=== PATIENT | female | born 1935 | race Caucasian/White ===

== ENCOUNTER → 2017-10-20 13:46 | Outpatient (CLI) | payer MEDICARE, OTHER, SELFPAY ==
[2017-10-20 14:16] LABS: Erythrocyte Sedimentation Rate 18 mm/hr (0-30)
== END ==
PROVIDERS: Family Provider Family Medicine; PCP Family Medicine; Visit Provider Internal Medicine Rheumatology
DX: M31.6 Other giant cell arteritis (principal); Z85.3 Personal history of malignant neoplasm of breast; Z85.43 Personal history of malignant neoplasm of ovary; Z79.52 Long term (current) use of systemic steroids
CPT/HCPCS: 36415; 85652; 86140

== ENCOUNTER → 2017-11-21 10:58 | Outpatient (CLI) | payer MEDICARE, OTHER, SELFPAY ==
[2017-11-21 12:40] LABS: AST(SGOT) 17 U/L (15-37); Alanine Aminotransfer ALT/SGPT 19 U/L (13-56); Anion Gap 8 (5-15); BUN 16 mg/dL (7-18); BUN/Creat Ratio 17.3 RATIO (10-20); Calcium,Total 9.3 mg/dL (8.5-10.1); Chloride 107 mmol/L (98-107); Cholesterol 156 mg/dL (200); Creatinine, Serum 0.93 mg/dL (0.55-1.02); EST Glomerular Filtration Rate 62 mL/min (>60); Est Glom Filt Rate - Afr Amer 75 mL/min (>60); Glucose 127 mg/dL (74-106); High Density Lipoprotein 58 mg/dL; Sodium Level 144 mmol/L (136-145); Triglycerides 153 mg/dL; Very Low Density Lipoprotein 31 mg/dL (5-40)
== END ==
PROVIDERS: Visit Provider Family Medicine
DX: I10 Essential (primary) hypertension (principal); E78.5 Hyperlipidemia, unspecified; I26.99 Other pulmonary embolism without acute cor pulmonale
CPT/HCPCS: 36415; 80048; 80061; 84450; 84460

== ENCOUNTER → 2018-02-13 08:20 | Outpatient (CLI) | payer MEDICARE, OTHER, SELFPAY ==
[2018-02-13 09:33] LABS: Erythrocyte Sedimentation Rate 16 mm/hr (0-30)
== END ==
PROVIDERS: Family Provider Family Medicine; PCP Family Medicine; Visit Provider Internal Medicine Rheumatology
DX: M31.6 Other giant cell arteritis (principal); Z79.52 Long term (current) use of systemic steroids; Z85.3 Personal history of malignant neoplasm of breast; Z85.43 Personal history of malignant neoplasm of ovary
CPT/HCPCS: 36415; 85652; 86140

== ENCOUNTER 2018-02-20 19:07 | Emergency (ER) | payer MEDICARE, OTHER, SELFPAY ==
[2018-02-20] VITALS (7 sets, daily range): BP systolic 132–139; BP diastolic 71–105; PULSE 76–86; RESP 17–34; TEMP 36.6; O2SAT 92–95; BMI 31.2
--- NOTE | 2018-02-20 19:39 | RAD_ITS ---
STUDY: X-RAY CHEST REASON FOR EXAM: Female, 82 years old. Cough TECHNIQUE: Frontal and lateral views of the chest COMPARISON: 09/06/2015 FINDINGS: The lungs are clear. There are no pleural effusions. There is no pneumothorax. The heart is normal in size. The visualized osseous structures are within normal limits. RAD/Chest PA and Lateral IMPRESSION: No acute thoracic pathology. Electronically Signed: Cricket Garcia, at 20:27 EDT Tel , Service support ,
--- NOTE | 2018-02-20 19:39 | EKG12_ITS ---
Test Reason : CP Blood Pressure : / mmHG Vent. Rate : 080 BPM Atrial Rate : 080 BPM P-R Int : 140 ms QRS Dur : 078 ms QT Int : 372 ms P-R-T Axes : 034 -27 038 degrees QTc Int : 429 ms Normal sinus rhythm Normal ECG Confirmed by TRISTIN ANAYA, AC ([id number]), content editor SHELLIE NOLAN ([id number] on 02/22/2018 9:18:35 AM Referred By: Jocy Webb Confirmed By:AC CROW MD
[2018-02-20 19:55] LABS: Absolute Lymphocyte Count 1.96 X10^3/ul (0.83-4.51); Absolute Neutrophil Count 3.4 X10^3/uL (2.0-7.7); Basophil# 0.01 X10^3/uL; Basophil% 0.2 % (0-1); Eosinophil# 0.15 X10^3/uL; Eosinophils% 2.5 % (0-5); Hematocrit 39.5 % (37-47); Hemoglobin 13.1 g/dl (12.0-15.0); Lymphocyte # 1.96 X10^3/ul (4.0); Lymphocyte % 32.1 % (19-41); Mean Corp Hgb Conc 33.2 g/gl (32-36); Mean Corpuscular Hgb 30.3 pg (27.0-32.0); Mean Corpuscular Volume 91.2 fL (81-99); Mean Platelet Vol. 8.8 fl (6.2-12.0); Monocyte# 0.59 X10^3/uL; Monocyte% 9.7 % (0-10); Neutrophil # 3.38 X10^3/uL (2.7-7.7); Neutrophil % 55.3 % (47-70); Platelet Count 219 K/mm3 (150-450); RBC Distribution Width CV 13.6 % (11.6-14.6); RBC Distribution Width SD 44.9 fl (35.1-43.9); Red Blood Count 4.33 M/mm3 (4.2-5.4); White Blood Count 6.1 K/mm3 (4.4-11.0)
[2018-02-20 19:57] LABS: POSITIVE COUNT NO; POSITIVE DIFFERENTIAL NO; POSITIVE MORPHOLOGY NO
[2018-02-20 20:01] LABS: International Normalized Ratio 1.5; Prothrombin Time (Protime)PT. 17.7 SECONDS (11.7-14.9)
[2018-02-20 20:18] LABS: Anion Gap 9 (5-15); BUN 10 mg/dL (7-18); BUN/Creat Ratio 12.9 RATIO (10-20); Calcium,Total 8.3 mg/dL (8.5-10.1); Chloride 105 mmol/L (98-107); Creatinine, Serum 0.77 mg/dL (0.55-1.02); EST Glomerular Filtration Rate 76 mL/min (>60); Est Glom Filt Rate - Afr Amer 92 mL/min (>60); Estimated Creatinine Clearance 38.75 ml/min; Glucose 97 mg/dL (74-106); Potassium 4.1 mmol/L (3.5-5.1); Sodium Level 138 mmol/L (136-145)
--- NOTE | 2018-02-20 20:25 | ED.DCSUM_ITS ---
- ER Visit Summary Date of Service: 02/20/18 Chief Complaint: Cough History of Present Illness: The patient is a 82 F presenting with cough ?1 week. She states it is occasionally productive. She occasionally has shortness of breath with it but is not currently short of breath. She denies chest pain. Denies fever chills. She was seen by her primary care physician, Dr. Bardales. She continues to have symptoms. She denies other complaints. Physical Examination: Vitals are stable. Patient is afebrile. Alert no acute distress. HEENT exam is unremarkable. Pharynx is normal Neck is supple. Lungs are clear and equal bilaterally. Heart is regular rate and rhythm. Abdomen is soft nontender nondistended. Extremities are unremarkable. Skin is warm and dry. No focal neurologic deficit. Remainder of exam is unremarkable. Emergency Department Course and Treatment: EKG is sinus rate of 80 with no acute ischemic changes. CBC, chemistries unremarkable. Troponin is negative. Chest x-ray shows no acute process. Patient is resting comfortably in the emergency department. Her pulse ox with ambulation is 93-94% on room air. She feels well enough to go home. She will follow-up with her primary care physician. Advised return to ED for any worsening complaints. Disposition: Discharge Impression: Bronchitis This note was generated with [employer] dictation software. It may contain incorrect words, spelling, and punctuation that were not noted in review of the chart prior to signing ED Disposition - Plan for ED Patient: Chief Complaint: Cough Referrals: Alana Bardales MD [Primary Care Provider] -
[2018-02-20] MEDS: Ondansetron 4 MG/2 ML Vial IV (20:41)
--- NOTE | 2018-02-20 21:30 | ED.DEP ---
ED Disposition - Plan for ED Patient: Chief Complaint: Cough Instructions: ED Upper Resp Infec No Abx Tx Referrals: Alana Bardaels MD [Primary Care Provider] -
--- NOTE | 2018-02-21 13:16 | CM.ED ---
ED CALLBACK: Follow-up call placed to patient. No answer. No voicemail option.
== END 2018-02-20 21:36 | disposition home or self-care (01) ==
LOC: ED 19:49
PROVIDERS: Emergency Provider Emergency Medicine; Family Provider Family Medicine; PCP Family Medicine
DX: J40 Bronchitis, not specified as acute or chronic (principal); I25.10 Atherosclerotic heart disease of native coronary artery without angina pectoris; E78.00 Pure hypercholesterolemia, unspecified; F03.90 Unspecified dementia, unspecified severity, without behavioral disturbance, psychotic disturbance, mood disturbance, and anxiety; Z79.01 Long term (current) use of anticoagulants; Z79.82 Long term (current) use of aspirin; Z79.899 Other long term (current) drug therapy
CPT/HCPCS: 71046; 80048; 84484; 85025; 85610; 93005; 96374; 99284; A4216; J2405

== ENCOUNTER → 2018-05-14 12:13 | Outpatient (CLI) | payer MEDICARE, OTHER, SELFPAY ==
[2018-05-14 12:51] LABS: Erythrocyte Sedimentation Rate 16 mm/hr (0-30)
[2018-05-14 13:09] LABS: CRP 6.68 mg/L (0.0-3.0)
== END ==
PROVIDERS: Family Provider Family Medicine; PCP Family Medicine; Visit Provider Internal Medicine Rheumatology
DX: M31.6 Other giant cell arteritis (principal); Z79.52 Long term (current) use of systemic steroids; Z85.3 Personal history of malignant neoplasm of breast; Z85.43 Personal history of malignant neoplasm of ovary
CPT/HCPCS: 36415; 85652; 86140

== ENCOUNTER → 2018-06-11 15:58 | Outpatient (CLI) | payer MEDICARE, OTHER, SELFPAY ==
[2018-06-11 17:11] LABS: Absolute Lymphocyte Count 2.14 X10^3/ul (0.83-4.51); Absolute Neutrophil Count 5.2 X10^3/uL (2.0-7.7); Basophil# 0.02 X10^3/uL; Basophil% 0.2 % (0-1); Eosinophils% 2.4 % (0-5); Hematocrit 43.4 % (37-47); Lymphocyte # 2.14 X10^3/ul (4.0); Lymphocyte % 25.9 % (19-41); Mean Corp Hgb Conc 32.3 g/gl (32-36); Mean Corpuscular Hgb 29.9 pg (27.0-32.0); Mean Corpuscular Volume 92.7 fL (81-99); Mean Platelet Vol. 9.6 fl (6.2-12.0); Monocyte# 0.73 X10^3/uL; Monocyte% 8.8 % (0-10); Neutrophil # 5.15 X10^3/uL (2.7-7.7); Neutrophil % 62.6 % (47-70); Platelet Count 281 K/mm3 (150-450); RBC Distribution Width CV 14.2 % (11.6-14.6); RBC Distribution Width SD 47.9 fl (35.1-43.9); Red Blood Count 4.68 M/mm3 (4.2-5.4); White Blood Count 8.3 K/mm3 (4.4-11.0)
[2018-06-11 17:12] LABS: POSITIVE COUNT NO; POSITIVE DIFFERENTIAL NO; POSITIVE MORPHOLOGY NO
[2018-06-11 17:32] LABS: ALB/GLOB Ratio 1.1 RATIO (0.9-2.4); AST(SGOT) 14 U/L (15-37); Alanine Aminotransfer ALT/SGPT 18 U/L (13-56); Albumin, Serum 3.5 g/dL (3.2-5.0); Alkaline Phosphatase 112 U/L (45-117); Anion Gap 8 (5-15); BUN 13 mg/dL (7-18); BUN/Creat Ratio 16.6 RATIO (10-20); Calcium,Total 8.9 mg/dL (8.5-10.1); Chloride 110 mmol/L (98-107); Creatinine, Serum 0.78 mg/dL (0.55-1.02); EST Glomerular Filtration Rate 75 mL/min (>60); Est Glom Filt Rate - Afr Amer 91 mL/min (>60); Globulin 3.2 g/dL (2.2-4.2); Glucose 91 mg/dL (74-106); Magnesium 1.9 mg/dL (1.6-2.6); Phosphorus 3.8 mg/dL (2.5-4.9); Protein, Total 6.7 g/dL (6.4-8.2); Sodium Level 144 mmol/L (136-145)
== END ==
PROVIDERS: Family Provider Family Medicine; PCP Family Medicine; Referring Provider Internal Medicine Medical Oncology; Visit Provider Internal Medicine Medical Oncology
DX: M85.80 Other specified disorders of bone density and structure, unspecified site (principal); D05.12 Intraductal carcinoma in situ of left breast
CPT/HCPCS: 36415; 80053; 83735; 84100; 85025

== ENCOUNTER → 2018-06-25 16:38 | Outpatient (CLI) | payer MEDICARE, OTHER, SELFPAY ==
--- NOTE | 2018-06-25 16:40 | CT_ITS ---
STUDY: CT CHEST WITH CONTRAST REASON FOR EXAM: Female, 82 years old. Cough, breast cancer history RADIATION DOSAGE (If Supplied By Facility): CTDIvol = ( 15.20 ) mGy, DLP = ( 536.78 ) mGycm TECHNIQUE: Transaxial 2.5 mm imaging was performed following intravenous administration of 100 ml of Isovue 300 contrast material. Multiplanar coronal and sagittal images were reformatted. Individualized dose optimization techniques were used for this CT. COMPARISON: CT chest 10/01/2015. 05/28/2015 with coronal images only. Chest x-ray 02/20/2018. FINDINGS: Minimal scarring in the apices, areas off hyperinflation, minimal thickening along the right anterior lower chest wall possible radiation changes, nonspecific compression of peripheral basilar parenchyma. There is no demonstrated pleural abnormality. Normal heart and pericardium. Normal mediastinum. Normal hilar regions. Normal enhanced pulmonary arteries. There is atherosclerotic calcification of the aortic arch with tortuosity and elongation of the aortic arch and descending thoracic aorta. There are multi-level degenerative changes of the spine, bilateral shoulder joints, demineralization of osseous structures. There are bilateral external breast prostheses. No distracted osseous lesions. Stable small cystic lesion involving the pancreas head measuring 1.2 x 1 cm, previously 1.2 x 0.9 cm. This is better delineated on the current contrast enhanced study. There is a hiatal hernia. Normal bilateral adrenal glands is imaged. CT/Chest WITH Contrast IMPRESSION: Chronic changes with scarring, possible postradiation changes, areas of hyperinflation. No pulmonary edema, congestive heart failure or confluent pneumonia. No evidence of metastatic disease to soft tissue, bones, mediastinum, upper abdomen. Extent Stable cystic lesion within the pancreas since 2014 felt to be a benign entity. Other nonacute findings as outlined above. Electronically Signed: Deana Ma MD at 5:32 EDT , Service support ,
== END ==
PROVIDERS: Family Provider Family Medicine; PCP Family Medicine; Referring Provider Internal Medicine Medical Oncology; Visit Provider Internal Medicine Medical Oncology
DX: R05 Cough (principal); Z85.3 Personal history of malignant neoplasm of breast
CPT/HCPCS: 71260; Q9967

== ENCOUNTER 2018-08-10 13:32 | Inpatient (IN) | payer MEDICARE, OTHER, SELFPAY ==
[2018-08-10] VITALS (10 sets, daily range): BP systolic 131–168; BP diastolic 63–86; PULSE 62–72; RESP 16–18; TEMP 36.5–37.1; O2SAT 26–98; BMI 29.7; BMI 29.1; BMI 29.2
--- NOTE | 2018-08-10 14:02 | CT_ITS ---
STUDY: CT BRAIN WITHOUT CONTRAST REASON FOR EXAM: Female, 82 years old. History of breast cancer. Vertigo RADIATION DOSAGE (If Supplied By Facility): CTDIvol = ( 44.99 ) mGy, DLP = ( 711.75 ) mGycm TECHNIQUE: Transaxial CT imaging of the brain was performed without administration of intravenous contrast material. Individualized dose optimization techniques were used for this CT. COMPARISON: May 27, 2015 CT brain FINDINGS: Encephalomalacia and gliosis in the left frontal and parietal lobes noted likely related with chronic ischemic injury similar to previous CT from May 27, 2015. Moderate chronic small vessel disease. No shift of midline structures, mass effect or compression of ventricles noted. No acute intra-articular extra-axial hemorrhage. Vascular calcifications of the internal carotid arteries. Opacification of the right maxillary sinus noted. No discrete mass in the posterior fossa. IMPRESSION: Stable CT examination of the brain. No evidence for acute intracranial hemorrhage, mass effect or acute large territory infarcts. Electronically Signed: Abilio Adkins, at 15:08 EST Tel , Service support , CT/Brain/Head without Contrast
--- NOTE | 2018-08-10 14:02 | EKG12_ITS ---
Test Reason : DIZZINESS Blood Pressure : / mmHG Vent. Rate : 066 BPM Atrial Rate : 066 BPM P-R Int : 142 ms QRS Dur : 080 ms QT Int : 414 ms P-R-T Axes : 045 -13 051 degrees QTc Int : 434 ms Normal sinus rhythm Normal ECG Confirmed by TRISTIN ANAYA, AC ([id number]), development editor RUDDY REYNA ([id number]) on 08/14/2018 3:22:46 PM Referred By: Curtis Camacho Confirmed By:AC CROW MD
--- NOTE | 2018-08-10 14:02 | RAD_ITS ---
STUDY: X-RAY CHEST REASON FOR EXAM: Female, 82 years old. Dizziness TECHNIQUE: Single AP portable view of the chest. COMPARISON: February 20, 2018 FINDINGS: There are interstitial fibrotic changes of the lungs. There is no demonstrated pleural abnormality. Normal size heart. Normal mediastinum and kerry. Normal visualized pulmonary arteries. Normal visualized aortic arch and descending thoracic aorta. There are diffuse degenerative changes of the visualized thoracic spine. Degenerative change of the left shoulder. Postoperative changes in the soft tissues of the upper chest. There is no demonstrated abnormality of the visualized soft tissue structures of the upper abdomen. RAD/Chest 1 View IMPRESSION: Degenerative changes, as described above. No demonstrated acute cardiopulmonary process. Electronically Signed: Juan Shipley MD at 15:36 EST , Service support ,
[2018-08-10 14:53] LABS: Absolute Neutrophil Count 4.1 X10^3/uL (2.0-7.7); Basophil# 0.03 X10^3/uL; Basophil% 0.5 % (0-1); Eosinophil# 0.11 X10^3/uL; Eosinophils% 1.8 % (0-5); Hematocrit 40.6 % (37-47); Hemoglobin 13.4 g/dl (12.0-15.0); Lymphocyte % 22.5 % (19-41); Mean Corpuscular Volume 90.8 fL (81-99); Monocyte# 0.53 X10^3/uL; Monocyte% 8.5 % (0-10); Neutrophil # 4.13 X10^3/uL (2.7-7.7); Neutrophil % 66.5 % (47-70); Platelet Count 192 K/mm3 (150-450); RBC Distribution Width CV 14.1 % (11.6-14.6); RBC Distribution Width SD 46.9 fl (35.1-43.9); Red Blood Count 4.47 M/mm3 (4.2-5.4); White Blood Count 6.2 K/mm3 (4.4-11.0)
[2018-08-10 14:57] LABS: International Normalized Ratio 2.4; POSITIVE COUNT NO; POSITIVE DIFFERENTIAL NO; POSITIVE MORPHOLOGY NO; Prothrombin Time (Protime)PT. 26.6 SECONDS (11.7-14.9)
[2018-08-10 14:58] LABS: Partial Thromboplast Time 39.2 Seconds (24.1-36.2)
[2018-08-10 15:12] LABS: Anion Gap 8 (5-15); BUN 15 mg/dL (7-18); BUN/Creat Ratio 18.2 RATIO (10-20); Calcium,Total 8.8 mg/dL (8.5-10.1); Chloride 109 mmol/L (98-107); Creatinine, Serum 0.82 mg/dL (0.55-1.02); EST Glomerular Filtration Rate 71 mL/min (>60); Erythrocyte Sedimentation Rate 10 mm/hr (0-30); Est Glom Filt Rate - Afr Amer 86 mL/min (>60); Estimated Creatinine Clearance 47.25 ml/min; Glucose 109 mg/dL (74-106); Potassium 3.9 mmol/L (3.5-5.1); Sodium Level 143 mmol/L (136-145)
--- NOTE | 2018-08-10 15:53 | ED.VISSUMM ---
- ER Visit Summary Date of Service: 08/10/18 Chief Complaint: Dizziness History of Present Illness: The patient is a 82 F with dizziness that started several days ago. It feels like the room is spinning. It lasts for seconds to minutes at a time. It has been getting worse, and the patient almost fell. Symptoms are better when she sits down or uses her walker. No visual changes. No facial droop. No weakness or numbness. 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 Physical Examination: Afebrile and vital signs unremarkable. NIH stroke scale is 0. Heart regular. Lungs clear. Abdomen soft. Skin appears normal. Test Results: EKG showed sinus rhythm rate of 66. Labs fairly unremarkable. Coumadin therapeutic at 2.4. Troponin normal. Chest x-ray shows degenerative changes. CT brain showed nothing acute. Emergency Department Course and Treatment: Patient has intermittent vertigo. She has a history of temporal arteritis, syncope, HI, PE, et al. I am concerned this may be related to her temporal arteritis, but she does not have any other symptoms that she had with her prior bout. I also considered stroke given her risk factors. I also considered peripheral causes, but felt that these were less likely because she does not have other symptoms that are consistent with that. I discussed management options with the patient and her family. They are concerned about her safety with her difficulty walking. They do not feel comfortable with her going home and following up as an outpatient. They would like to rule out stroke. I spoke with the hospitalist for further care. Treatment Plan: As above Disposition: Admission Impression: 1. Vertigo This note was generated with [employer] dictation software. It may contain incorrect words, spelling, and punctuation that were not noted in review of the chart prior to signing ED Disposition - Plan for ED Patient: Chief Complaint: Dizziness Referrals: Mayank Haq DO [Primary Care Provider] -
--- NOTE | 2018-08-10 15:55 | NURSING ---
PCU DIZZINESS OBS [facility]
--- NOTE | 2018-08-10 15:58 | ED.DCSUM_ITS ---
- ER Visit Summary Date of Service: 08/10/18 Chief Complaint: Dizziness History of Present Illness: The patient is a 82 F with dizziness that started several days ago. It feels like the room is spinning. It lasts for seconds to minutes at a time. It has been getting worse, and the patient almost fell. S ymptoms are better when she sits down or uses her walker. No visual changes. No facial droop. No weakness or numbness. 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 Physical Examination: Afebrile and vital signs unremarkable. NIH stroke scale is 0. Heart regular. Lungs clear. Abdomen soft. Skin appears normal. Test Results: EKG showed sinus rhythm rate of 66. Labs fairly unremarkable. Coumadin therapeutic at 2.4. Troponin normal. Chest x-ray shows degenerative changes. CT brain showed nothing acute. Emergency Department Course and Treatment: Patient has intermittent vertigo. She has a history of temporal arteritis, syncope, [place], PE, et al. I am concerned this may be related to her temporal arteritis, but she does not have any other symptoms that she had with her prior bout. I also considered stroke given her risk factors. I also considered peripheral causes, but felt that these were less likely because she does not have other symptoms that are consistent with that. I discussed management options with the patient and her family. They are concerned about her safety with her difficulty walking. They do not feel comfortable with her going home and following up as an outpatient. They would like to rule out stroke. I spoke with the hospitalist for further care. Treatment Plan: As above Disposition: Admission Impression: 1. Vertigo This note was generated with [employer] dictation software. It may contain incorrect words, spelling, and punctuation that were not noted in review of the chart prior to signing ED Disposition - Plan for ED Patient: Chief Complaint: Dizziness Referrals: Mayank Haq DO [Primary Care Provider] -
--- NOTE | 2018-08-10 18:02 | HP.PCM_ITS ---
<James Alexander - Last Filed: 08/10/18 17:57> Problem List (1) Dizziness Status: Acute (2) Ovarian ca Status: Chronic (3) GERD (gastroesophageal reflux disease) Status: Chronic (4) Temporal arteritis Status: Chronic (5) History of right breast cancer Status: Chronic History of Present Illness Date of Admission: 08/10/18 Chief Complaint: dizziness The patient is a 82 year old F with pmhx of Breast and Ovarian CA in remission x [address] López, hx PE and DVT, hx SSVT, hx temporal arteritis, GERD, Polio right arm and leg, who presents to the ER with c/o dizziness. This has been going on for a couple days and became worse today. She notes that it only o ccurs when she stands or walks and it is relieved by sitting down. She had an episode while she was on her feet here too. Currently no dizziness. She has no dizziness when turning her head back and forth. She was unsteady on her feet. No nausea. No focal weakness. No [place]. No visual changes. No numbness or tingling. No slurred speech or facial droop. [] Past Medical History Past Medical History (Chronic Problems): Chronic Problems (Last Reviewed 07/08/18 @ 14:41 by Odette Bassett) Ovarian ca (Chronic) GERD (gastroesophageal reflux disease) (Chronic) Temporal arteritis (Chronic) Osteopenia (Chronic) History of right breast cancer (Chronic) Medical History: Medical History (Last Reviewed 07/08/18 @ 14:41 by Odette Bassett) History of hysterectomy Z90.710 Pulmonary embolism I26.99 Temporal arteritis M31.6 Allergies No Known Allergies Allergy (Verified 08/10/18 13:34) Home Medications: Ambulatory Orders Medication Instructions Recorded Calcium Carbonate/Vitamin D3 1 each PO BID 02/09/16 [Oyster Shell Calcium-Vit D Tab] Rivastigmine Tartrate [Exelon] 3 mg PO BID 05/20/16 Prednisone 2.5 mg PO DAILY 04/24/17 Warfarin [Coumadin ([facility])] 2 mg PO SUMOWEFRSA 04/24/17 Anastrozole [Arimidex] 1 mg PO DAILY 08/10/18 Aspirin [Aspirin, Baby] 81 mg PO DAILY@0800 08/10/18 Atorvastatin Calcium [Lipitor] 20 mg PO QHS 08/10/18 Carvedilol [Coreg (Beta Mayank)] 3.125 mg PO BID 08/10/18 Mirtazapine [Remeron] 15 mg PO QHS 08/10/18 Warfarin [Coumadin ([facility])] 4 mg PO TUTH 08/10/18 Surgical History: Surgical History (Last Reviewed 07/08/18 @ 14:41 by Odette Bassett) H/O cataract extraction Z98.49 H/O mastectomy Z90.10 BILATERAL History of knee replacement Z96.659 Surgical History: - - R TKR, L ankle fracture w/ hardware, Hysterectomy, BL Total Mastectomy. Psychiatric History: No pertinent psych hx [employer]ER History: ovarian cancer Lives: With Family Smoking Status: Never smoker Alcohol: None Drugs: None - *Family History Maternal History Items: Heart Disease, Stroke Sibling History Items: - - Cancer and DM in sisters. Paternal History Items: Heart Disease Review of Systems Constitutional: Denies: Chills, Fever, Weight Change HEENT: Denies: Head Aches, Sinus Congestion, Sinus Drainage Cardiovascular: Denies: Chest Pain, Palpitations Respiratory: Denies: Cough, Shortness of breath at rest, Sputum production Gastrointestinal: Denies: Abdominal Pain, Nausea, Vomiting Genitourinary: Denies: Dysuria Musculoskeletal: Denies: Joint Pain, Joint Tenderness Skin: Denies: Rash, Wounds Neurological: Reports: - - dizziness. Denies: Focal weakness, Numbness, Tingling Psychiatric: Denies: Anxiety, Depression, Homicidal Ideations, Suicidal Ideations Hematologic/ Lymphatic: Denies: Easy Bruising, Easy Bleeding VTE Information - Inpt Only VTE Present on Admission: No VTE Mechan Device Prophylaxis: None VTE Pharm Prophylaxis ordered?: Yes Patient Problems: Active and Suspected Problems (Last Reviewed 07/08/18 @ 14:41 by Odette Bassett) Dizziness (Acute) - Physical Exam General: Alert, Oriented x3, Cooperative HEENT: Atraumatic, PERRLA, EOMI, Normocephalic Neck: Supple, No JVD, Negative Carotid Bruits Lungs: Clear to auscultation, Normal air movement Cardiovascular: Regular rate, No murmurs Abdomen: Bowel Sounds Present, Soft, Non Tender Extremities: No edema, Capillary Refill Less than 3 Seconds Skin: No rashes, No breakdown Musculoskeletal: No Tenderness to Palpation of Joints or Extremities Neurological: Cranial nerves II-XII grossly intact Psych/Mental Status: Normal Affect, Appropriate, Alert and oriented to time, place, person, mood and affect Vital Signs Temp Pulse Resp BP Pulse Ox 98.7 F 68 17 138/86 H 95 08/10/18 16:43 08/10/18 17:21 08/10/18 16:43 08/10/18 16:43 08/10/18 16:43 Oxygen Flow Rate (L/min) 93 Oxygen Delivery Method Room Air Weight: 169 lb 15.622 oz Body Mass Index (BMI) 29.1 Laboratory Tests Past 24 Hrs 08/10/18 08/10/18 08/10/18 14:40 14:40 14:40 WBC 6.2 RBC 4.47 Hgb 13.4 Hct 40.6 MCV 90.8 MCH 30.0 MCHC 33.0 RDW 14.1 RDW Differential 46.9 H Plt Count 192 MPV 9.0 Immature Gran % (Auto) 0.200 Neut % (Auto) 66.5 Lymph % (Auto) 22.5 [place] % (Auto) 8.5 Eos % (Auto) 1.8 Baso % (Auto) 0.5 Absolute Neuts (auto) 4.1 Absolute Lymphs (auto) 1.40 Total Counted Not Reportable ESR 10 PT 26.6 H INR 2.4 APTT 39.2 H Sodium 143 Potassium 3.9 Chloride 109 H Carbon Dioxide 26.0 Anion Gap 8 BUN 15 Creatinine 0.82 Estim Creat Clear Calc 47.25 Est GFR (MDRD) Af Amer 86 Est GFR (MDRD) Non-Af 71 BUN/Creatinine Ratio 18.2 Glucose 109 H Calcium 8.8 Troponin I < 0.015 Assessment/Plan All Active Problems (Last Reviewed 07/08/18 @ 14:41 by Odette Bassett) NSTEMI (non-ST elevated myocardial infarction) (Acute) Dyspnea (Acute) Pneumonia (Acute) Syncope (Acute) Invasive ductal carcinoma of right breast, stage 2 (Resolved) Chronic cough (Acute) Dizziness (Acute) Breast cancer (Resolved) Ductal carcinoma in situ (DCIS) of left breast (Resolved) 1. Dizziness - . CT brain neg. Check orthos. PTOT evals. Maintain on tele. Trop neg. EKG NSR 2. hx DVT/PE - inr therapeutic 3. Hx BrCa, ovarian Ca, in remission s/p mastectomy/hysterectomy. Continue arimidex. 4. Hx Polio - PTOT. Ambulates with walker. R side effected (U/L Ext) 5. Temporal arteritis - since 2013. f.u as outpatient - continue prednisone. DVT ppx: lovenox DC planning: ptot evals This patient was seen by James Alexander PA-C under the supervision of Dr. Camacho <Curtis Camacho F - Last Filed: 08/11/18 14:18> History of Present Illness The patient is a 82 year old F [] Past Medical History Medical History: Medical History (Last Reviewed 07/08/18 @ 14:41 by Odette Bassett) History of hysterectomy Z90.710 Pulmonary embolism I26.99 Temporal arteritis M31.6 Allergies No Known Allergies Allergy (Verified 08/10/18 13:34) Surgical History: Surgical History (Last Reviewed 07/08/18 @ 14:41 by Odette Bassett) H/O cataract extraction Z98.49 H/O mastectomy Z90.10 BILATERAL History of knee replacement Z96.659 - Physical Exam Vital Signs Temp Pulse Resp BP Pulse Ox 97.7 F L 73 18 108/56 L 94 08/11/18 08:50 08/11/18 11:06 08/11/18 08:50 08/11/18 09:09 08/11/18 08:50 Oxygen Flow Rate (L/min) 93 Oxygen Delivery Method Room Air Weight: 169 lb 15.622 oz Body Mass Index (BMI) 29.1 Orthostatic Vital Signs Start: 08/11/18 09:09 Freq: q24h Status: Active Protocol: Activity Type Activity Date Activity User E-Sign Co-Sign Detail Recorded Client Recorded Date Recorded By Document 08/11/18 09:09 [facility] [id number] 08/11/18 09:16 [facility] 08/11/18 09:09 Orthostatic Vitals Standing -Blood Pressure (90/60-120/80) 132/69 H -Extremity Use Left Arm -Pulse Rate (60-100) 98 Sitting -Blood Pressure (90/60-120/80) 125/70 H -Extremity Use Left Arm -Pulse Rate (60-100) 83 Lying -Blood Pressure (90/60-120/80) 108/56 L -Extremity Use Left Arm -Pulse Rate (60-100) 71 Intake and Output for Last 24 Hours 08/09/18 08/10/18 08/11/18 23:59 23:59 23:59 Intake Total 500 / 500 Balance 500 / 500 Laboratory Tests Past 24 Hrs 08/10/18 08/10/18 08/10/18 14:40 14:40 14:40 WBC 6.2 RBC 4.47 Hgb 13.4 Hct 40.6 MCV 90.8 MCH 30.0 MCHC 33.0 RDW 14.1 RDW Differential 46.9 H Plt Count 192 MPV 9.0 Immature Gran % (Auto) 0.200 Neut % (Auto) 66.5 Lymph % (Auto) 22.5 [place] % (Auto) 8.5 Eos % (Auto) 1.8 Baso % (Auto) 0.5 Absolute Neuts (auto) 4.1 Absolute Lymphs (auto) 1.40 Total Counted Not Reportable ESR 10 PT 26.6 H INR 2.4 APTT 39.2 H Sodium 143 Potassium 3.9 Chloride 109 H Carbon Dioxide 26.0 Anion Gap 8 BUN 15 Creatinine 0.82 Estim Creat Clear Calc 47.25 Est GFR (MDRD) Af Amer 86 Est GFR (MDRD) Non-Af 71 BUN/Creatinine Ratio 18.2 Glucose 109 H Calcium 8.8 Magnesium Total Bilirubin Direct Bilirubin AST ALT Alkaline Phosphatase Troponin I < 0.015 Total Protein Albumin Globulin 08/11/18 08/11/18 08/11/18 05:19 05:19 05:19 WBC 4.7 RBC 4.20 Hgb 12.7 Hct 38.7 MCV 92.1 MCH 30.2 MCHC 32.8 RDW 14.3 RDW Differential 47.0 H Plt Count 180 MPV 9.2 Immature Gran % (Auto) 0.200 Neut % (Auto) 46.1 L Lymph % (Auto) 38.9 [place] % (Auto) 10.8 H Eos % (Auto) 3.4 Baso % (Auto) 0.6 Absolute Neuts (auto) 2.2 Absolute Lymphs (auto) 1.84 Total Counted Not Reportable ESR PT INR APTT Sodium 144 Potassium 3.6 Chloride 112 H Carbon Dioxide 24.0 Anion Gap 8 BUN 14 Creatinine 0.69 Estim Creat Clear Calc 38.75 Est GFR (MDRD) Af Amer 104 Est GFR (MDRD) Non-Af 86 BUN/Creatinine Ratio 20.2 H Glucose 81 Calcium 8.1 L Magnesium 2.0 Total Bilirubin 0.50 Direct Bilirubin 0.13 AST 17 ALT 18 Alkaline Phosphatase 79 Troponin I Total Protein 5.8 L Albumin 2.9 L Globulin 2.9 Code Visit Addendum: Dr. Camacho I personally examined the patient and reviewed the chart. I agree with the above. 82-year-old female presenting with dizziness for the last couple of days. She states that the episodes only occur when she is standing up. They resolve after a few minutes and they do not occur when she is sitting down or when she turns her head side to side. This is likely orthostatic or dehydration given the fact that she drinks very little water. Will check orthostatic vital signs and monitor overnight with neuro checks. If necessary may need to obtain an MRI. OBSV E&M: [id number] Initial observation care L3
[2018-08-10] MEDS: Enoxaparin 40 MG/0.4 ML Syringe SC (20:49)
[2018-08-11] VITALS (12 sets, daily range): BP systolic 108–134; BP diastolic 55–72; PULSE 64–98; RESP 16–18; TEMP 36.4–36.7; O2SAT 92–95
--- NOTE | 2018-08-11 06:00 | MRI_ITS ---
STUDY: MRI BRAIN WITHOUT CONTRAST REASON FOR EXAM: Female, 82 years old. Vertigo and dizziness for 3 days. TECHNIQUE: Standardized multiplanar fat and water weighted pulse sequences were obtained. COMPARISON: 02 April 2015 FINDINGS: There is moderate cerebral atrophy with widening of the extra-axial spaces and ventricular dilatation. There are multiple white matter hyperintensities, distributed throughout the deep white matter tracts of the cerebral hemispheres, consistent with moderate chronic white matter ischemic changes. Left parietal-occipital chronic volume loss possibly secondary to previous ischemia similar to [address] exam[address] There is no evidence for recent intracranial ischemia or other cause of cytotoxic edema on diffusion weighted imaging (DWI). Normal T2* images of the brain without demonstrated susceptibility artifact. There is no demonstrated hemosiderin stain. Normal bilateral basal ganglia. Normal thalami. There is no extra-axial fluid accumulation. Normal flow voids within the major intracranial circulation suggesting patency by spin echo criteria. Normal sella turcica, pituitary gland, infundibular stalk, optic chiasm and hypothalamus. Normal tectal plate and pineal gland. Normal midbrain, wolf and medulla. Normal cerebellum. Normal basal cisterns. Normal bilateral temporal bones. Normal bilateral internal auditory canals. No demonstrated orbital abnormality, within the constraints of a routine brain study. Right maxillary sinus fluid layering versus polyp/mucosal cyst is present. Normal calvarium and skull base. Normal visualized soft tissue structures. Normal visualized upper cervical spine. MRI/Brain without Contrast IMPRESSION: Stable senescent changes as above compared to 02 April 2015 with no evidence of acute intracranial bleed, mass or ischemia. Electronically Signed: Tenzin Mackay DO at 11:21 EST , Service support ,
[2018-08-11 06:22] LABS: Absolute Lymphocyte Count 1.84 X10^3/ul (0.83-4.51); Absolute Neutrophil Count 2.2 X10^3/uL (2.0-7.7); Basophil# 0.03 X10^3/uL; Basophil% 0.6 % (0-1); Eosinophil# 0.16 X10^3/uL; Eosinophils% 3.4 % (0-5); Hematocrit 38.7 % (37-47); Hemoglobin 12.7 g/dl (12.0-15.0); Lymphocyte # 1.84 X10^3/ul (4.0); Lymphocyte % 38.9 % (19-41); Mean Corp Hgb Conc 32.8 g/gl (32-36); Mean Corpuscular Hgb 30.2 pg (27.0-32.0); Mean Corpuscular Volume 92.1 fL (81-99); Mean Platelet Vol. 9.2 fl (6.2-12.0); Monocyte# 0.51 X10^3/uL; Monocyte% 10.8 % (0-10); Neutrophil # 2.18 X10^3/uL (2.7-7.7); Neutrophil % 46.1 % (47-70); Platelet Count 180 K/mm3 (150-450); RBC Distribution Width CV 14.3 % (11.6-14.6); White Blood Count 4.7 K/mm3 (4.4-11.0)
[2018-08-11 06:23] LABS: Anion Gap 8 (5-15); BUN 14 mg/dL (7-18); BUN/Creat Ratio 20.2 RATIO (10-20); Calcium,Total 8.1 mg/dL (8.5-10.1); Chloride 112 mmol/L (98-107); Creatinine, Serum 0.69 mg/dL (0.55-1.02); EST Glomerular Filtration Rate 86 mL/min (>60); Est Glom Filt Rate - Afr Amer 104 mL/min (>60); Estimated Creatinine Clearance 38.75 ml/min; Glucose 81 mg/dL (74-106); Potassium 3.6 mmol/L (3.5-5.1); Sodium Level 144 mmol/L (136-145)
[2018-08-11 06:34] LABS: POSITIVE COUNT NO; POSITIVE DIFFERENTIAL NO; POSITIVE MORPHOLOGY NO
--- NOTE | 2018-08-11 08:06 | PCM.PROGNOTE ---
Patient Problems: Active and Suspected Problems (Last Reviewed 07/08/18 @ 14:41 by Odette Bassett) Dizziness (Acute) Subjective: Ms. Martines is a 82 YOF with a PMH of breast and Ovarian CA(in remission for 3 years...follows with Dr. 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 on 08/10/2018 complaining of dizziness. The dizziness occurred when she stands and walks. Vital signs in the emergency room were temp 98.7, pulse 68, respirations 17, blood pressure 138/86 and she was 95% saturated on room air. CBC showed a normal white blood count of 6.2 and normal hemoglobin of 13.4. The differential was unremarkable. INR was 2.4 and the BMP was unremarkable. Troponin was less than 0.015. CT brain showed encephalomalacia and gliosis in the left frontal and parietal lobes which is stable from a CT head done in May 2015. There was moderate chronic small vessel disease and there were no acute findings. Chest x-ray showed probable atelectasis in the right base but was otherwise unremarkable. She denies vertigo No CP and no SOB Denies N/V - Physical Exam General: Alert, Oriented x3, Cooperative, No apparent distress HEENT: Atraumatic, PERRLA, EOMI, Normocephalic, - - no nystagmus Oral: Dry Mucosa Neck: Supple, No JVD, No Nuchal Rigidity, Trachea Midline Lungs: Clear to auscultation, Normal air movement, No rhonchi, No wheeze, No rales Cardiovascular: Regular rate, Regular Rhythm, Normal S1, Normal S2, No Ectopic Activity - Telemetry showing NSR with no ectopy, No rub noted, No Gallop Abdomen: Bowel Sounds Present, Soft, Non Tender, Non-Distended Extremities: No clubbing, No cyanosis, No edema Skin: No rashes, No breakdown Neurological: Cranial nerves II-XII grossly intact, Neuro grossly intact Psych/Mental Status: Normal Affect, Appropriate Vital Signs Temp Pulse Resp BP Pulse Ox 98.1 F 71 18 111/58 L 94 08/11/18 04:40 08/11/18 07:27 08/11/18 04:40 08/11/18 04:40 08/11/18 04:40 Oxygen Flow Rate (L/min) 93 Oxygen Delivery Method Room Air Weight: 169 lb 15.622 oz Body Mass Index (BMI) 29.1 Laboratory Tests Past 24 Hrs 08/10/18 08/10/18 08/10/18 14:40 14:40 14:40 WBC 6.2 RBC 4.47 Hgb 13.4 Hct 40.6 MCV 90.8 MCH 30.0 MCHC 33.0 RDW 14.1 RDW Differential 46.9 H Plt Count 192 MPV 9.0 Immature Gran % (Auto) 0.200 Neut % (Auto) 66.5 Lymph % (Auto) 22.5 Cross % (Auto) 8.5 Eos % (Auto) 1.8 Baso % (Auto) 0.5 Absolute Neuts (auto) 4.1 Absolute Lymphs (auto) 1.40 Total Counted Not Reportable ESR 10 PT 26.6 H INR 2.4 APTT 39.2 H Sodium 143 Potassium 3.9 Chloride 109 H Carbon Dioxide 26.0 Anion Gap 8 BUN 15 Creatinine 0.82 Estim Creat Clear Calc 47.25 Est GFR (MDRD) Af Amer 86 Est GFR (MDRD) Non-Af 71 BUN/Creatinine Ratio 18.2 Glucose 109 H Calcium 8.8 Troponin I < 0.015 08/11/18 08/11/18 05:19 05:19 WBC 4.7 RBC 4.20 Hgb 12.7 Hct 38.7 MCV 92.1 MCH 30.2 MCHC 32.8 RDW 14.3 RDW Differential 47.0 H Plt Count 180 MPV 9.2 Immature Gran % (Auto) 0.200 Neut % (Auto) 46.1 L Lymph % (Auto) 38.9 Cross % (Auto) 10.8 H Eos % (Auto) 3.4 Baso % (Auto) 0.6 Absolute Neuts (auto) 2.2 Absolute Lymphs (auto) 1.84 Total Counted Not Reportable ESR PT INR APTT Sodium 144 Potassium 3.6 Chloride 112 H Carbon Dioxide 24.0 Anion Gap 8 BUN 14 Creatinine 0.69 Estim Creat Clear Calc 38.75 Est GFR (MDRD) Af Amer 104 Est GFR (MDRD) Non-Af 86 BUN/Creatinine Ratio 20.2 H Glucose 81 Calcium 8.1 L Troponin I Medical Necessity - Tobacco Use Smoking Status: Never smoker Assessment/Plan All Active Problems (Last Reviewed 07/08/18 @ 14:41 by Odette Bassett) NSTEMI (non-ST elevated myocardial infarction) (Acute) Dyspnea (Acute) Pneumonia (Acute) Syncope (Acute) Invasive ductal carcinoma of right breast, stage 2 (Resolved) Chronic cough (Acute) Dizziness (Acute) Breast cancer (Resolved) Ductal carcinoma in situ (DCIS) of left breast (Resolved) Impressions 1. dizziness - only with standing and walking. no vertigo. + increase in HR of 27 BPM with standing which is a positive test for orthostasis. Hydrate tonight. Recheck the orthostatics in the AM. GIGI mcallister when her legs are dependent 2. hx of Temporal arteritis in 2013....need to taper the steroids off and if she has not had a DEXA she should as an OP to check for osteoporosis due to age + LT steroid use Code Visit OBSV E&M: 14839 Subsequent observation care L1
[2018-08-11 09:05] LABS: AST(SGOT) 17 U/L (15-37); Alanine Aminotransfer ALT/SGPT 18 U/L (13-56); Albumin, Serum 2.9 g/dL (3.2-5.0); Alkaline Phosphatase 79 U/L (45-117); Bilirubin, Direct 0.13 mg/dL (0.00-0.30); Globulin 2.9 g/dL (2.2-4.2); Protein, Total 5.8 g/dL (6.4-8.2)
[2018-08-11] MEDS: Carvedilol 3.125 MG TABLET PO ×2 (11:00→21:01)
[2018-08-11] MEDS: Calcium Carb/Vitamin D 1 TABLET Tablet PO ×2 (11:00→16:27)
[2018-08-11] MEDS: predniSONE 5 MG Tablet 2.5 MG PO (11:01)
[2018-08-11] MEDS: Rivastigmine Tartrate 1.5 MG Capsule 3 MG PO ×2 (11:31→21:03)
[2018-08-11] MEDS: 0.9% NaCl Peripheral Flush Adult/Peds IV (20:56)
[2018-08-11] MEDS: 0.9% Normal Saline 1,000 ML 100 ML IV (20:56)
[2018-08-11] MEDS: Mirtazapine 15 MG Tablet PO (21:01)
[2018-08-11] MEDS: Atorvastatin Calcium 20 MG Tablet PO (21:03)
[2018-08-12 02:50] VITALS: BP 117/54; PULSE 65; RESP 18; TEMP 36.7; O2SAT 96
[2018-08-12 03:05] VITALS: PULSE 63
[2018-08-12 06:06] VITALS: BP 116/94; BP 118/50; BP 136/65; PULSE 66; PULSE 70; PULSE 85
[2018-08-12 06:22] VITALS: BP 136/65; PULSE 70; RESP 20; TEMP 36.8; O2SAT 97
[2018-08-12 06:34] LABS: Anion Gap 8 (5-15); BUN 11 mg/dL (7-18); BUN/Creat Ratio 15.6 RATIO (10-20); Calcium,Total 7.8 mg/dL (8.5-10.1); Chloride 113 mmol/L (98-107); Creatinine, Serum 0.71 mg/dL (0.55-1.02); EST Glomerular Filtration Rate 84 mL/min (>60); Est Glom Filt Rate - Afr Amer 102 mL/min (>60); Estimated Creatinine Clearance 38.75 ml/min; Glucose 83 mg/dL (74-106); Phosphorus 2.5 mg/dL (2.5-4.9); Potassium 3.7 mmol/L (3.5-5.1); Sodium Level 144 mmol/L (136-145)
[2018-08-12 07:26] VITALS: PULSE 70
[2018-08-12] MEDS: Calcium Carb/Vitamin D 1 TABLET Tablet PO (07:56)
[2018-08-12] MEDS: predniSONE 5 MG Tablet 2.5 MG PO (07:57)
[2018-08-12] MEDS: Aspirin 81 MG TAB.CHEW PO (07:57)
[2018-08-12] MEDS: Rivastigmine Tartrate 1.5 MG Capsule 3 MG PO (08:56)
[2018-08-12] MEDS: Carvedilol 3.125 MG TABLET PO (08:56)
[2018-08-12] MEDS: Anastrozole 1 MG Tablet PO (08:57)
[2018-08-12 11:45] VITALS: BP 134/78; PULSE 76; RESP 18; TEMP 36.9; O2SAT 97
--- NOTE | 2018-08-12 11:51 | DCINST_ITS ---
- Discharge Diagnoses Current Active Problems: Current Active and Chronic Problems (Last Reviewed 07/08/18 @ 14:41 by Odette Bassett) Dizziness (Acute) You will use the following diet at home:: Cardiac Your food should be the consistency of: Regular Your liquids should be the consistency of: Regular/Thin Discharge Activity: Return to Normal Activity Additional Instructions: Continue to use GIGI hoses daily with activity or when legs are not elevated. Allergies/Adverse Reactions: Allergies No Known Allergies Allergy (Verified 08/10/18 13:34) Medications to take at Discharge Calcium Carbonate/Vitamin D3 [Oyster Shell 500-Vit D3 200 Tb] 1 each PO BID 02/09/16 Rivastigmine Tartrate [Exelon] 3 mg PO BID 05/20/16 Prednisone 2.5 mg PO DAILY 04/24/17 Warfarin [Coumadin] 2 mg PO SUMOWEFRSA 04/24/17 Anastrozole [Arimidex] 1 mg PO DAILY 08/10/18 Aspirin [Aspirin, Baby] 81 mg PO DAILY@0800 08/10/18 Atorvastatin Calcium [Lipitor] 20 mg PO QHS 08/10/18 Carvedilol [Coreg (Beta Mayank)] 3.125 mg PO BID 08/10/18 Mirtazapine [Remeron] 15 mg PO QHS 08/10/18 Warfarin [Coumadin] 4 mg PO TUTH 08/10/18 Primary Care Physician: Mayank Haq DO [Primary Care Provider] - Please follow up with your Primary Care Physician in: 1-2 weeks Test Results: Test results from this visit will be discussed in further detail at your follow- up appointment, if applicable. Proposed Discharge Date: 08/12/18
--- NOTE | 2018-08-12 12:12 | CASEMGMT ---
NOMI MELO assessment: Face to Face with patient for initial transition planning/care coordination assessment. NOMI MELO introduced self and role at [facility], pt voices understanding and consents to assessment at this time. Pt is sitting up in chair in no distress at this time. Pt is A/Ox4 at this time and answers all questions appropriately at this time. Care providers, pharmacy, and demographics verified/updated at this time. PCP: [facility] Specialists: Pt states currently has no specialists. Preferred [facility]acy: [facility] Insurance: MCR A/B, [employer] Prescription Benefit: MCR/[employer] Living Will/HPOA: Pt states has LW/HPOA but they are not currently on file at [facility]. Pt states that, Patrice Martines Jr-son and Rima Freeman, daughter are HPOA's. LNOK: Patrice and Joi Martines-son and daughter in law; Rima Freeman, daughter Living Arrangements: Pt states lives with son and daughter in law in 1 story home and states no concerns at home at this time. Pt states able to complete ADL's but if does need help, her daughter in law is there throughout the day and her son is there in the evening. Transportation: Pt states son/daughter in law drives and and states no transportation concerns at this time. DME/HHC: Pt states has a walker, grab bars, and a shower chair. Pt states no need for any further DME at this time. Pt states no hx of HHC but has been to [facility] in the past. Pt states no concerns with going home at time of discharge. Pt states is retired. Pt states does not smoke or drink ETOH. Pt states no further concerns/needs at this time. Advised pt to ask for CM if any further questions/concerns/needs arise, voices understanding. Plan: Home [place] NOMI MELO
--- NOTE | 2018-08-12 14:11 | PCM.DC.SUM ---
Discharge Date and Diagnosis Date of Admission: 08/10/18 Date of Discharge: 08/12/18 - Primary Discharge Diagnosis Vertigo 2/2 orthostatic hypotension - stroke ruled out Hx breast and ovarian cancer Temporal arteritis GERD Polio right arm/leg Hx PE/DVT - Secondary Discharge Diagnosis Chronic Problems (Last Reviewed 07/08/18 @ 14:41 by Odette Bassett) Ovarian ca (Chronic) GERD (gastroesophageal reflux disease) (Chronic) Temporal arteritis (Chronic) Osteopenia (Chronic) History of right breast cancer (Chronic) Hospital Course and Treatment Imaging Results: MRI/Brain without Contrast IMPRESSION: Stable senescent changes as above compared to 02 April 2015 with no evidence of acute intracranial bleed, mass or ischemia. CT brain: IMPRESSION: Stable CT examination of the brain. No evidence for acute intracranial hemorrhage, mass effect or acute large territory infarcts. RAD/Chest 1 View IMPRESSION: Degenerative changes, as described above. No demonstrated acute cardiopulmonary process. Operations: None Procedures: None Summary of Care Provided: Hospital course: The patient is a 82 year old F with pmhx as above who presented to the ER with c/o dizziness that occurred when standing and walking. She was admitted to the PCU on telemetry. She had a negative CT brain and negative MRI of the brain. She continued to experience the sensation with ambulation. She was given GIGI hoses and IV fluids with a suspected component of orthostatic hypotensions, and did demonstrate positive orthostatic hypotension from sitting to standing. She worked with PT and OT and did well with no further needs for therapy. She was advised to continue GIGI hoses and to follow up with her PCP in 1-2 weeks. She was discharged home in stable condition. This patient was seen by James Alexander PA-C under the supervision of Doctor Azeb. [] - Physical Exam General: Alert, Oriented x3, Cooperative HEENT: Atraumatic, PERRLA, EOMI, Normocephalic Neck: Supple, No JVD, Negative Carotid Bruits Lungs: Clear to auscultation, Normal air movement Cardiovascular: Regular rate, No murmurs Abdomen: Bowel Sounds Present, Soft, Non Tender Extremities: No edema, Capillary Refill Less than 3 Seconds Skin: No rashes, No breakdown Musculoskeletal: No Tenderness to Palpation of Joints or Extremities Neurological: Cranial nerves II-XII grossly intact Psych/Mental Status: Normal Affect, Appropriate, Alert and oriented to time, place, person, mood and affect Vital Signs Temp Pulse Resp BP Pulse Ox 98.4 F 76 18 134/78 H 97 08/12/18 11:45 08/12/18 11:45 08/12/18 11:45 08/12/18 11:45 08/12/18 11:45 Oxygen Flow Rate (L/min) 93 Oxygen Delivery Method Room Air Weight: 169 lb 15.622 oz Body Mass Index (BMI) 29.1 Intake and Output for Last 24 Hours 08/10/18 08/11/18 08/12/18 23:59 23:59 23:59 Intake Total 1125 / 1125 1571 / 1571 Balance 1125 / 1125 1571 / 1571 Laboratory Tests Past 24 Hrs 08/12/18 05:50 Sodium 144 Potassium 3.7 Chloride 113 H Carbon Dioxide 23.0 Anion Gap 8 BUN 11 Creatinine 0.71 Estim Creat Clear Calc 38.75 Est GFR (MDRD) Af Amer 102 Est GFR (MDRD) Non-Af 84 BUN/Creatinine Ratio 15.6 Glucose 83 Calcium 7.8 L Phosphorus 2.5 Magnesium 2.0 Discharge Diet: No Restrictions Discharge Activity: Return to Normal Activity Home Medications: Medications to take at Discharge Calcium Carbonate/Vitamin D3 [Oyster Shell 500-Vit D3 200 Tb] 1 each PO BID 02/09/16 Rivastigmine Tartrate [Exelon] 3 mg PO BID 05/20/16 Prednisone 2.5 mg PO DAILY 04/24/17 Warfarin [Coumadin] 2 mg PO SUMOWEFRSA 04/24/17 Anastrozole [Arimidex] 1 mg PO DAILY 08/10/18 Aspirin [Aspirin, Baby] 81 mg PO DAILY@0800 08/10/18 Atorvastatin Calcium [Lipitor] 20 mg PO QHS 08/10/18 Carvedilol [Coreg (Beta Mayank)] 3.125 mg PO BID 08/10/18 Mirtazapine [Remeron] 15 mg PO QHS 08/10/18 Warfarin [Coumadin] 4 mg PO TUTH 08/10/18 Primary Care Physician: Mayank Haq DO [Primary Care Provider] - Please follow up with your Primary Care Physician in: 1-2 weeks Please Follow Up With: Juve Wong MD Please Follow Up With: Mayank Haq DO Disposition: Home Minutes spent on discharge:: 35 Patient Condition:: Stable Medical Necessity - Tobacco Use Smoking Status: Never smoker Meaningful Use Info Meaningful Use Diagnoses (Choose all that apply): None applicable
--- NOTE | 2018-08-13 15:53 | CASEMGMT ---
NOMI MELO Discharge F/U Phone Call LACE: 10 Strata: 3 Discharge date: 08/12/18 Call date: 08/13/18 Call time: 1555 Attempted to reach pt at this time without success and per message, pt's voice mail box is not set up yet and this RN KAMERON is unable to leave message for pt at this time. [place] NOMI MELO Admission dx: Vertigo
--- OUTSIDE RECORDS SUMMARY | 2018-11-13 11:39 | XMS RPT_ITS ---
:1935 Author Organization [place] Support Name Relationship Address Phone Joi Dominguez Unavailable Unavailable + MICHAEL DOMINGUEZ JR Unavailable [address] + [place] [address] R Unavailable Unavailable Unavailable Joi Dominguez Unavailable Unavailable + MICHAEL DOMINGUEZ JR Unavailable [address] + [place] [address] R Unavailable Unavailable Unavailable Joi Dominguez Unavailable Unavailable + MICHAEL DOMINGUEZ JR Unavailable [address] + [place] [address] R Unavailable Unavailable Unavailable Joi Dominguez Unavailable Unavailable + MICHAEL DOMINGUEZ JR Unavailable [address] + [place] [address] R Unavailable Unavailable Unavailable MICHAEL DOMINGUEZ JR Unavailable [address] + [place] [address] R Unavailable Unavailable Unavailable PETE, CHELSEY Unavailable [address] + [place] [address] MICHAEL DOMINGUEZ JR Unavailable [address] + [place] [address] R Unavailable Unavailable Unavailable PETE, CHELSEY Unavailable [address] + [place] [address] MICHAEL DOMINGUEZ JR Unavailable [address] + [place] [address] R Unavailable Unavailable Unavailable PETE, CHELSEY Unavailable [address] + [place] [address] ALBERTO JR, MICHAEL Unavailable [address] + [place] [address] R Unavailable Unavailable Unavailable PETE, CHELSEY Unavailable [address] + [place] [address] ALBERTO MUNSON, MICHAEL Unavailable [address] + [place] [address] R Unavailable Unavailable Unavailable PETE, CHELSEY Unavailable [address] + [place] [address] ALBERTO MUNSON, MICHAEL Unavailable [address] + [place] [address] R Unavailable Unavailable Unavailable PETE, CHELSEY Unavailable [address] + [place] [address] ALBERTO MUNSON, MICHAEL Unavailable [address] + [place] [address] R Unavailable Unavailable Unavailable PETE, CHELSEY Unavailable [address] + [place] [address] ALBERTO MUNSON, MICHAEL Unavailable [address] + [place] [address] R Unavailable Unavailable Unavailable PETE, CHELSEY Unavailable [address] + [place] [address] ALBERTO MUNSON, MICHAEL Unavailable [address] [phone] [place] [address] R Unavailable Unavailable Unavailable PETE, CHELSEY Unavailable [address] + [place] [address] ALBERTO MUNSON, MICHAEL Unavailable [address] [phone] [place] [address] R Unavailable Unavailable Unavailable PETE, CHELSEY Unavailable [address] + [place] [address] ALBERTO MUNSON, MICHAEL Unavailable [address] [phone] [place] [address] R Unavailable Unavailable Unavailable PETE, CHELSEY Unavailable [address] + [place] [address] Care Team Providers Name Role Phone Eun, Mayank Primary Care Unavailable Kotsonis, Curtis F Admitting Unavailable Kotsonis, Curtis F Referring Unavailable Sementi, Alie Attending Unavailable Kotsonis, Curtis F Admitting Unavailable Kotsonis, Curtis F Referring Unavailable Eun, Mayank Primary Care Unavailable Sementi, Alie Consulting Unavailable Kotsonis, Curtis F Attending Unavailable Jolliff, Alana Referring Unavailable Eun, Mayank Primary Care Unavailable Prah, Dave Attending Unavailable Vellanki, Jocy Attending Unavailable Jolliff, Alana Primary Care Unavailable Kotsonis, Curtis F Admitting Unavailable Sementi, Alie Attending Unavailable Kotsonis, Curtis F Referring Unavailable Eun, Mayank Primary Care Unavailable Sementi, Alie Consulting Unavailable Kotsonis, Curtis F Admitting Unavailable Kotsonis, Curtis F Referring Unavailable Eun, Mayank Primary Care Unavailable Sementi, Alie Consulting Unavailable Sementi, Alie Attending Unavailable Jolliff, Alana Attending Unavailable Prah, Dave Attending Unavailable Jolliff, Alana Referring Unavailable Jolliff, Alana Primary Care Unavailable Pete, Jessy Consulting Unavailable Vellanki, Jocy Attending Unavailable Vellanki, Jocy Referring Unavailable Jolliff, Alana Primary Care Unavailable Jolliff, Alana Primary Care Unavailable Joanie Ceballos Attending Unavailable Vellanki, Jocy Attending Unavailable Vellanki, Jocy Referring Unavailable Jolliff, Alana Primary Care Unavailable Praphilippe, Dave Attending Unavailable Prah, Dave Referring Unavailable Jolliff, Alana Primary Care Unavailable Prah, Dave Attending Unavailable Jolliff, Alana Referring Unavailable Jolliff, Alana Primary Care Unavailable Pete, Jessy Consulting Unavailable Praphilippe, Dave Attending Unavailable Prah, Dave Referring Unavailable Eun, Mayank Primary Care Unavailable Praphilippe, Dave Attending Unavailable Jolliff, Alana Referring Unavailable Eun, Mayank Primary Care Unavailable Dave López Consulting Unavailable PROBLEMS PROBLEMS DATE TYPE CONDITION / CODE ATTENDING STATUS SOURCE 08/22/2018 Unknown R42 - Dizziness Sementi, Active [place] and giddiness / [facility] R42(ICD-10) Hospital Repository 07/23/2018 Unknown C50.911 - Dave López Active [place] [facility] neoplasm of Hospital unspecified site Repository of right female breast / C50.911(ICD-10) 07/23/2018 Unknown Z85.3 - Personal Dave López Active [place] history of Community malignant Hospital neoplasm of Repository breast / Z85.3(ICD-10) 07/23/2018 Unknown R05 - Cough / Dave López Active [place] R05(ICD-10) On License Of [facility] Hospital Repository 05/14/2018 Unknown 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 Webb Active [place] giant cell Community arteritis / Hospital M31.6(ICD-10) Repository 05/14/2018 Unknown Z79.52 - Long Jocy Webb Active [place] term (current) Community use of systemic Hospital steroids / Repository Z79.52(ICD-10) 05/14/2018 Unknown Z85.43 - Personal Jocy Webb Active [place] history of On License Of [facility] malignant Hospital neoplasm of ovary Repository / Z85.43(ICD-10) 12/17/2017 Unknown M85.80 - Other Dave López Active [place] specified On License Of [facility] disorders of bone Hospital density and Repository structure, unspecified site / M85.80(ICD-10) 12/17/2017 Unknown 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 - Dave López Active [place] 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 / Repository D05.12(ICD-10) PROCEDURES PROCEDURES No Procedure Records FoundRESULTS RESULTS DISCHARGE SUMMARY Observed: 08/22/2018 Status: F Source: [place] 3:00 PM [facility] REPOSITORY [facility] Medical Records Department [address] [place] [address] Discharge Summary 08/12/18 1411 MR#: [id number] Acct: [id number] Name: SIRISHA DOMINGUEZ Rep #: [id number] : 1935 82 From: James WIGGINS PCP: Mayank Haq DO Status: DIS IN Y Location: [place] [id number] ADDENDUM by Alie Bowie on 08/22/18 at 1500 Code Visit This patient was seen in conjunction with James Alexander. I have independently interviewed and examined the patient and reviewed pertinent historical, laboratory and other data. Please refer to discharge summary note for details of this patient's presentation, findings and recommendations. I have reviewed James's note and concur fully with documented findings. In brief, patient is a 82YO female admitted with dizziness/vertigo. The vertigo occurred when she stood and walked. She was afebrile in the emergency room with a blood pressure of 138/86 and a pulse rate of 68. White blood cell count was normal and so was the hemoglobin. Her INR was therapeutic at 2.4 and the BMP was unremarkable. Troponin was less than 0.015. A CT brain showed encephalomalacia and gliosis in the left frontal and parietal lobes which was stable. There was moderate chronic small vessel disease but no acute findings. The patient denied vertigo to me. She only complained of lightheadedness. Orthostatic blood pressures were done and the heart rate increased 27 bpm when going from lying down to standing and this is a positive test for orthostasis. IV fluids were ordered and the orthostatics were rechecked the following a.m. and were normal. GIGI hose were applied. Patient has a history of temporal arteritis in 2003 and still continues to take steroids. She was instructed to follow-up with Dr. Haq in 1-[address] Wong..... She will call the office for an appointment. She will discussed tapering the steroids with Dr. Haq. Physical examination: I agree with the physical examination as documented by James Alexander below Assessment: 1. Lightheadedness secondary to orthostatic hypotension secondary to dehydration 2. Temporal arteritis diagnosed in 2013 and the patient continues to take steroids however, she does not know why she is on steroids so there may be another reason I have discussed my assessment with James and orders have been written. OBSV E AND M: [id number] Observation care discharge 08/22/18 1500 <Electronically signed by Misa Bowie DO> Date Misa Bowie DO cc: FELICIANO Alexander; Alie Bowie; Mayank Haq DO; Juve Wong MD * Signed Discharge Date and Diagnosis Date of Admission: 08/10/18 Date of Discharge: 08/12/18 - Primary Discharge Diagnosis Vertigo 2/2 orthostatic hypotension - stroke ruled out Hx breast and ovarian cancer Temporal arteritis GERD Polio right arm/leg Hx PE/DVT - Secondary Discharge Diagnosis Chronic Problems (Last Reviewed 07/08/18 @ 14:41 by Odette Bassett) Ovarian ca (Chronic) GERD (gastroesophageal reflux disease) (Chronic) Temporal arteritis (Chronic) Osteopenia (Chronic) History of right breast cancer (Chronic) Hospital Course and Treatment Imaging Results: MRI/Brain without Contrast IMPRESSION: Stable senescent changes as above compared to 02 April 2015 with no evidence of acute intracranial bleed, mass or ischemia. CT brain: IMPRESSION: Stable CT examination of the brain. No evidence for acute intracranial hemorrhage, mass effect or acute large territory infarcts. RAD/Chest 1 View IMPRESSION: Degenerative changes, as described above. No demonstrated acute cardiopulmonary process. Operations: None Procedures: None Summary of Care Provided: Hospital course: The patient is a 82 year old F with pmhx as above who presented to the ER with c/o dizziness that occurred when standing and walking. She was admitted to the PCU on telemetry. She had a negative CT brain and negative MRI of the brain. She continued to experience the sensation with ambulation. She was given GIGI hoses and IV fluids with a suspected component of orthostatic hypotensions, and did demonstrate positive orthostatic hypotension from sitting to standing. She worked with PT and OT and did well with no further needs for therapy. She was advised to continue GIGI hoses and to follow up with her PCP in 1-2 weeks. She was discharged home in stable condition. This patient was seen by James Alexander PA-C under the supervision of Doctor Azeb. [] - Physical Exam General: Alert, Oriented x3, Cooperative HEENT: Atraumatic, PERRLA, EOMI, Normocephalic Neck: Supple, No JVD, Negative Carotid Bruits Lungs: Clear to auscultation, Normal air movement Cardiovascular: Regular rate, No murmurs Abdomen: Bowel Sounds Present, Soft, Non Tender Extremities: No edema, Capillary Refill Less than 3 Seconds Skin: No rashes, No breakdown Musculoskeletal: No Tenderness to Palpation of Joints or Extremities Neurological: Cranial nerves II-XII grossly intact Psych/Mental Status: Normal Affect, Appropriate, Alert and oriented to time, place, person, mood and affect Vital Signs Temp Pulse Resp BP Pulse Ox 98.4 F 76 18 134/78 H 97 08/12/18 11:45 08/12/18 11:45 08/12/18 11:45 08/12/18 11:45 08/12/18 11:45 Oxygen Flow Rate (L/min) 93 Oxygen Delivery Method Room Air Weight: 169 lb 15.622 oz Body Mass Index (BMI) 29.1 Intake and Output for Last 24 Hours Intake Total 1125 / 1125 1571 / 1571 Balance 1125 / 1125 1571 / 1571 Laboratory Tests Past 24 Hrs Sodium 144 Potassium 3.7 Chloride 113 H Carbon Dioxide 23.0 Anion Gap 8 BUN 11 Creatinine 0.71 Discharge Diet: No Restrictions Discharge Activity: Return to Normal Activity Home Medications: Medications to take at Discharge Calcium Carbonate/Vitamin D3 [Oyster Shell 500-Vit D3 200 Tb] 1 each PO BID 02/09/16 Rivastigmine Tartrate [Exelon] 3 mg PO BID 05/20/16 Prednisone 2.5 mg PO DAILY 04/24/17 Warfarin [Coumadin] 2 mg PO SUMOWEFRSA 04/24/17 Anastrozole [Arimidex] 1 mg PO DAILY 08/10/18 Aspirin [Aspirin, Baby] 81 mg PO DAILY@0800 08/10/18 Atorvastatin Calcium [Lipitor] 20 mg PO QHS 08/10/18 Carvedilol [Coreg (Beta Mayank)] 3.125 mg PO BID 08/10/18 Mirtazapine [Remeron] 15 mg PO QHS 08/10/18 Warfarin [Coumadin] 4 mg PO TUTH 08/10/18 Primary Care Physician: Mayank Haq DO [Primary Care Provider] - Please follow up with your Primary Care Physician in: 1-2 weeks Please Follow Up With: Juve Wong MD Please Follow Up With: Mayank Haq DO Disposition: Home Minutes spent on discharge:: 35 Patient Condition:: Stable Medical Necessity - Tobacco Use Smoking Status: Never smoker Meaningful Use Info Meaningful Use Diagnoses (Choose all that apply): None applicable 08/12/18 1420 <Electronically signed by James WIGGINS> Date James WIGGINS 08/22/18 1455<Electronically signed by Misa Bowie DO> Cosigner Signature (if applicable): Date Misa Bowie DO CC: FELICIANO Alexander; Alie Bowie; Mayank Haq DO; Juve Wong MD Signed 12 LEAD ELECTROCARDIOGRAM Observed: 08/14/2018 Status: F Source: [place] 3:23 PM [facility] REPOSITORY [facility] Cardiovascular Services [address] [place] [address] 12 Lead EKG 08/10/18 1425 MR#: [id number] Acct: [id number] Name: SIRISHA DOMINGUEZ Rep #: [id number] : 1935 82 From: Ben Vincent MD Attending Dr: Alie Bowie Status: DIS IN Ordering Dr: Ventura Lew MD Date: 08/10/18 Location: [facility] Sex: F C Admitted: 08/11/18 Test Reason : DIZZINESS Blood Pressure : / mmHG Vent. Rate : 066 BPM Atrial Rate : 066 BPM P-R Int : 142 ms QRS Dur : 080 ms QT Int : 414 ms P-R-T Axes : 045 -13 051 degrees QTc Int : 434 ms Normal sinus rhythm Normal ECG Confirmed by BEN VINCENT MD ([id number]), book or script editor RUDDY REYNA ([id number]) on 08/14/2018 3:22:46 PM Referred By: Curtis Camacho Confirmed By:BEN VINCENT MD 08/14/18 1522 Date Ben Vincent MD CC: Alie Bowie; Ventura Lew MD; Mayank Haq DO; Curtis Camacho MD Signed DISCHARGE INSTRUCTION Observed: 08/12/2018 Status: F Source: [place] 11:51 AM [facility] REPOSITORY [facility] Medical Records Department [address] [place] [address] Instructions for Home/Discharge Instructions 08/12/18 1149 MR#: [id number] Acct: [id number] Name: SIRISHA DOMINGUEZ Rep #: [id number] : 1935 82 From: James WIGGINS PCP: Mayank Haq DO Status: ADM IN - Discharge Diagnoses Current Active Problems: Current Active and Chronic Problems (Last Reviewed 07/08/18 @ 14:41 by Odette Bassett) Dizziness (Acute) You will use the following diet at home:: Cardiac Your food should be the consistency of: Regular Your liquids should be the consistency of: Regular/Thin Discharge Activity: Return to Normal Activity Additional Instructions: Continue to use GIGI hoses daily with activity or when legs are not elevated. Allergies/Adverse Reactions: Allergies No Known Allergies Allergy (Verified 08/10/18 13:34) Medications to take at Discharge Calcium Carbonate/Vitamin D3 [Oyster Shell 500-Vit D3 200 Tb] 1 each PO BID 02/09/16 Rivastigmine Tartrate [Exelon] 3 mg PO BID 05/20/16 Prednisone 2.5 mg PO DAILY 04/24/17 Warfarin [Coumadin] 2 mg PO SUMOWEFRSA 04/24/17 Anastrozole [Arimidex] 1 mg PO DAILY 08/10/18 Aspirin [Aspirin, Baby] 81 mg PO DAILY@0800 08/10/18 Atorvastatin Calcium [Lipitor] 20 mg PO QHS 08/10/18 Carvedilol [Coreg (Beta Mayank)] 3.125 mg PO BID 08/10/18 Mirtazapine [Remeron] 15 mg PO QHS 08/10/18 Warfarin [Coumadin] 4 mg PO TUTH 08/10/18 Primary Care Physician: Mayank Haq DO [Primary Care Provider] - Please follow up with your Primary Care Physician in: 1-2 weeks Test Results: Test results from this visit will be discussed in further detail at your follow-up appointment, if applicable. Proposed Discharge Date: 08/12/18 08/12/18 1151 <Electronically signed by James WIGGINS> Date James WIGGINS CC: Mayank Eun DO BASIC METABOLIC Collected: 08/12/2018 Status: F Source: [place] PROFILE (BMP) 5:50 AM [facility] REPOSITORY TYPE CODE TESTS RESULT OUT OF RANGE REFERENCE UNITS LAB L501.0100 74-106 mg/dL Normal GLU 83 Result Comment: Please note revised GLUCOSE reference range effective 2017. LAB L501.1000 7-18 mg/dL Normal BUN 11 LAB L501.1100 0.55-1.02 mg/dL Normal CREAT,SERUM 0.71 Result Comment: The validity of the calculated GFR AND GFRAA in patients over 70 years has not been determined. Clinical correlation is essential. LAB L501.1110 >60 mL/min Normal EST GFR 84 Result Comment: Non- GFR Calc LAB L501.1115 >60 mL/min Normal EST GFR - AA 102 Result Comment: GFR Calc LAB L501.1255 ml/min Normal Estimated CRCL 38.75 LAB L501.1300 10-20 RATIO Normal BUN/CRE 15.6 LAB L501.2200 8.5-10 mg/dL Low .1 CA 7.8 LAB L501.5300 136-14 mmol/L Normal 5 NA 144 LAB L501.5600 3.5-5. mmol/L Normal 1 K 3.7 LAB L501.5900 98-107 mmol/L High CL 113 LAB L501.6100 21.0-3 mmol/L Normal 2.0 CO2 23.0 LAB L501.6200 5-15 Normal GAP 8 Performed By: #### L500.2500, L501.2300, L501.5200 #### [facility] [address] [place], [place], [id number] PHOSPHORUS Collected: 08/12/2018 Status: F Source: [place] 5:50 AM [facility] REPOSITORY TYPE CODE TESTS RESULT OUT OF RANGE REFERENCE UNITS LAB L501.2300 2.5-4.9 mg/dL Normal PHOS 2.5 Performed By: #### L500.2500, L501.2300, L501.5200 #### [facility] [address] [place], [address] MAGNESIUM Collected: 08/12/2018 Status: F Source: [place] 5:50 AM [facility] REPOSITORY TYPE CODE TESTS RESULT OUT OF RANGE REFERENCE UNITS LAB L501.5200 1.6-2.6 mg/dL Normal MG 2.0 Performed By: #### L500.2500, L501.2300, L501.5200 #### [facility] [address] [place], [address] HISTORY AND PHYSICAL Observed: 08/11/2018 Status: F Source: [place] EXAM 2:18 PM [facility] REPOSITORY [facility] Medical Records Department [address] [place] [address] History and Physical 08/10/18 1757 MR#: [id number] Acct: [id number] Name: SIRISHA DOMINGUEZ Rep #: [id number] : 1935 82 From: James WIGGINS PCP: Mayank Haq DO Status: ADM [place] Y [id number] <James Alexander - Last Filed: 08/10/18 17:57> Problem List (1) Dizziness Status: Acute (2) Ovarian ca Status: Chronic (3) GERD (gastroesophageal reflux disease) Status: Chronic (4) Temporal arteritis Status: Chronic (5) History of right breast cancer Status: Chronic History of Present Illness Date of Admission: 08/10/18 Chief Complaint: dizziness The patient is a 82 year old F with pmhx of Breast and Ovarian CA in remission x [address] López, hx PE and DVT, hx SSVT, hx temporal arteritis, GERD, Polio right arm and leg, who presents to the ER with c/o dizziness. This has been going on for a couple days and became worse today. She notes that it only occurs when she stands or walks and it is relieved by sitting down. She had an episode while she was on her feet here too. Currently no dizziness. She has no dizziness when turning her head back and forth. She was unsteady on her feet. No nausea. No focal weakness. No [place]. No visual changes. No numbness or tingling. No slurred speech or facial droop. [] Past Medical History Past Medical History (Chronic Problems): Chronic Problems (Last Reviewed 07/08/18 @ 14:41 by Odette Bassett) Ovarian ca (Chronic) GERD (gastroesophageal reflux disease) (Chronic) Temporal arteritis (Chronic) Osteopenia (Chronic) History of right breast cancer (Chronic) Medical History: Medical History (Last Reviewed 07/08/18 @ 14:41 by Odette Bassett) History of hysterectomy Z90.710 Pulmonary embolism I26.99 Temporal arteritis M31.6 Allergies No Known Allergies Allergy (Verified 08/10/18 13:34) Home Medications: Ambulatory Orders Medication Instructions Recorded Calcium Carbonate/Vitamin D3 1 each PO BID 02/09/16 [Oyster Shell Calcium-Vit D Tab] Rivastigmine Tartrate [Exelon] 3 mg PO BID 05/20/16 Prednisone 2.5 mg PO DAILY 04/24/17 Surgical History: Surgical History (Last Reviewed 07/08/18 @ 14:41 by Odette Bassett) H/O cataract extraction Z98.49 H/O mastectomy Z90.10 BILATERAL History of knee replacement Z96.659 Surgical History: - - R TKR, L ankle fracture w/ hardware, Hysterectomy, BL Total Mastectomy. 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 Paternal History Items: Heart Disease Review of Systems Constitutional: Denies: Chills, Fever, Weight Change HEENT: Denies: Head Aches, Sinus Congestion, Sinus Drainage Cardiovascular: Denies: Chest Pain, Palpitations Respiratory: Denies: Cough, Shortness of breath at rest, Sputum production Gastrointestinal: Denies: Abdominal Pain, Nausea, Vomiting Genitourinary: Denies: Dysuria Musculoskeletal: Denies: Joint Pain, Joint Tenderness Skin: Denies: Rash, Wounds Neurological: Reports: - - dizziness. Denies: Focal weakness, Numbness, Tingling Psychiatric: Denies: Anxiety, Depression, Homicidal Ideations, Suicidal Ideations Hematologic/ Lymphatic: Denies: Easy Bruising, Easy Bleeding VTE Information - Inpt Only VTE Present on Admission: No VTE Mechan Device Prophylaxis: None VTE Pharm Prophylaxis ordered?: Yes Patient Problems: Active and Suspected Problems (Last Reviewed 07/08/18 @ 14:41 by Odette Bassett) Dizziness (Acute) - Physical Exam General: Alert, Oriented x3, Cooperative HEENT: Atraumatic, PERRLA, EOMI, Normocephalic Neck: Supple, No JVD, Negative Carotid Bruits Lungs: Clear to auscultation, Normal air movement Cardiovascular: Regular rate, No murmurs Abdomen: Bowel Sounds Present, Soft, Non Tender Extremities: No edema, Capillary Refill Less than 3 Seconds Skin: No rashes, No breakdown Musculoskeletal: No Tenderness to Palpation of Joints or Extremities Neurological: Cranial nerves II-XII grossly intact Psych/Mental Status: Normal Affect, Appropriate, Alert and oriented to time, place, person, mood and affect Vital Signs Temp Pulse Resp BP Pulse Ox 98.7 F 68 17 138/86 H 95 08/10/18 16:43 08/10/18 17:21 08/10/18 16:43 08/10/18 16:43 08/10/18 16:43 Oxygen Flow Rate (L/min) 93 Oxygen Delivery Method Room Air Weight: 169 lb 15.622 oz Body Mass Index (BMI) 29.1 Laboratory Tests Past 24 Hrs Assessment/Plan All Active Problems (Last Reviewed 07/08/18 @ 14:41 by Odette Bassett) NSTEMI (non-ST elevated myocardial infarction) (Acute) Dyspnea (Acute) Pneumonia (Acute) Syncope (Acute) Invasive ductal carcinoma of right breast, stage 2 (Resolved) Chronic cough (Acute) Dizziness (Acute) Breast cancer (Resolved) Ductal carcinoma in situ (DCIS) of left breast (Resolved) 1. Dizziness - . CT brain neg. Check orthos. PTOT evals. Maintain on tele. Trop neg. EKG NSR 2. hx DVT/PE - inr therapeutic 3. Hx BrCa, ovarian Ca, in remission s/p mastectomy/hysterectomy. Continue arimidex. 4. Hx Polio - PTOT. Ambulates with walker. R side effected (U/L Ext) 5. Temporal arteritis - since 2013. f.u as outpatient - continue prednisone. DVT ppx: lovenox DC planning: ptot evals This patient was seen by James Alexander PA-C under the supervision of Dr. Camacho <Curtis Camacho - Last Filed: 08/11/18 14:18> History of Present Illness The patient is a 82 year old F [] Past Medical History Medical History: Medical History (Last Reviewed 07/08/18 @ 14:41 by Odette Bassett) History of hysterectomy Z90.710 Pulmonary embolism I26.99 Temporal arteritis M31.6 Allergies No Known Allergies Allergy (Verified 08/10/18 13:34) Surgical History: Surgical History (Last Reviewed 07/08/18 @ 14:41 by Odette Bassett) H/O cataract extraction Z98.49 H/O mastectomy Z90.10 BILATERAL History of knee replacement Z96.659 - Physical Exam Vital Signs Temp Pulse Resp BP Pulse Ox 97.7 F L 73 18 108/56 L 94 08/11/18 08:50 08/11/18 11:06 08/11/18 08:50 08/11/18 09:09 08/11/18 08:50 Oxygen Flow Rate (L/min) 93 Oxygen Delivery Method Room Air Weight: 169 lb 15.622 oz Body Mass Index (BMI) 29.1 Orthostatic Vital Signs Start: 08/11/18 09:09 Freq: q24h Status: Active Protocol: Activity Type Activity Date Activity User E-Sign Co-Sign Detail Recorded Client Recorded Date Recorded By Document 08/11/18 09:09 [facility] [id number] 08/11/18 09:16 [facility] Orthostatic Vitals Standing -Blood Pressure (90/60-120/80) 132/69 H -Extremity Use Left Arm -Pulse Rate (60-100) 98 Sitting -Blood Pressure (90/60-120/80) 125/70 H Intake and Output for Last 24 Hours Intake Total 500 / 500 Balance 500 / 500 Laboratory Tests Past 24 Hrs WBC 6.2 RBC 4.47 Hgb 13.4 Hct 40.6 MCV 90.8 MCH 30.0 MCHC 33.0 RDW 14.1 RDW Differential 46.9 H Plt Count 192 Code Visit Addendum: Dr. Camacho I personally examined the patient and reviewed the chart. I agree with the above. 82-year-old female presenting with dizziness for the last couple of days. She states that the episodes only occur when she is standing up. They resolve after a few minutes and they do not occur when she is sitting down or when she turns her head side to side. This is likely orthostatic or dehydration given the fact that she drinks very little water. Will check orthostatic vital signs and monitor overnight with neuro checks. If necessary may need to obtain an MRI. OBSBrittney MONTELONGO: [id number] Initial observation care L3 08/10/18 1818 <Electronically signed by James WIGGINS> Date James WIGGINS 08/11/18 1418<Electronically signed by Curtis Camacho MD> Cosigner Signature: Date (if applicable) Curtis Camacho MD CC: FELICIANO Alexander; Mayank Haq DO; Curtis Camacho MD Signed BASIC METABOLIC Collected: 08/11/2018 Status: F Source: [place] PROFILE (BMP) 5:19 AM [facility] REPOS[facility] TYPE CODE TESTS RESULT OUT OF RANGE REFERENCE UNITS LAB L501.0100 74-106 mg/dL Normal GLU 81 Result Comment: Please note revised GLUCOSE reference range effective 2017. LAB L501.1000 7-18 mg/dL Normal BUN 14 LAB L501.1100 0.55-1.02 mg/dL Normal CREAT,SERUM 0.69 Result Comment: The validity of the calculated GFR AND GFRAA in patients over 70 years has not been determined. Clinical correlation is essential. LAB L501.1110 >60 mL/min Normal EST GFR 86 Result Comment: Non- GFR Calc LAB L501.1115 >60 mL/min Normal EST GFR - AA 104 Result Comment: GFR Calc LAB L501.1255 ml/min Normal Estimated CRCL 38.75 LAB L501.1300 10-20 RATIO High BUN/CRE 20.2 LAB L501.2200 8.5-10 mg/dL Low .1 CA 8.1 LAB L501.5300 136-14 mmol/L Normal 5 NA 144 LAB L501.5600 3.5-5. mmol/L Normal 1 K 3.6 LAB L501.5900 98-107 mmol/L High CL 112 LAB L501.6100 21.0-3 mmol/L Normal 2.0 CO2 24.0 LAB L501.6200 5-15 Normal GAP 8 Performed By: #### L500.2500 #### [facility] [address] [place], [address] CBC W/DIFF, AUTOMATED Collected: 08/11/2018 Status: F Source: [place] 5:19 AM [facility] REPOS[facility] TYPE CODE TESTS RESULT OUT OF RANGE REFERENCE UNITS LAB L100.1000 4.4-11.0 K/mm3 Normal WBC 4.7 LAB L100.1200 4.2-5.4 M/mm3 Normal RBC 4.20 LAB L100.1300 12.0-15.0 g/dl Normal HGB 12.7 LAB L100.1400 37-47 % Normal HCT 38.7 LAB L100.1500 81-99 fL Normal MCV 92.1 LAB L100.1600 27.0-32.0 pg Normal MCH 30.2 LAB L100.1700 32-36 g/gl Normal MCHC 32.8 LAB L100.1810 11.6-14.6 % Normal RDW CV 14.3 LAB L100.1820 35.1-43.9 fl High RDW SD 47.0 LAB L100.1900 150-450 K/mm3 Normal PLT 180 LAB L100.2000 6.2-12.0 fl Normal MPV 9.2 LAB L100.2100 47-70 % Low NEUT% 46.1 LAB L100.2200 19-41 % Normal LY% 38.9 LAB L100.2300 0-10 % High MONO% 10.8 LAB L100.2400 0-5 % Normal EO% 3.4 LAB L100.2500 0-1 % Normal BASO% 0.6 LAB L100.2550 0.0-0.9 % Normal IM GRAN % 0.200 Result Comment: IG% - Immature Granulocytes (promyelocytes, myelocytes and metamyelocytes) > 1% indicates that a LEFT SHIFT is Present. LAB L100.2620 2.0-7.7 X10 3/uL Normal Absolute Neut 2.2 LAB L100.2720 0.83-4.51 X10 3/ul Normal Absolute Lymph 1.84 Performed By: #### L100.0100 #### [facility] [address] [place], [address] LIVER PROFILE Collected: 08/11/2018 Status: F Source: [place] 5:19 AM [facility] REPOS[facility]ORY TYPE CODE TESTS RESULT OUT OF RANGE REFERENCE UNITS LAB L501.1500 6.4-8.2 g/dL Low T PROT 5.8 LAB L501.1800 3.2-5.0 g/dL Low ALB 2.9 LAB L501.1950 2.2-4.2 g/dL Normal GLOB 2.9 LAB L501.4100 15-37 U/L Normal AST 17 LAB L501.4305 45-117 U/L Normal ALK P 79 LAB L501.4405 13-56 U/L Normal ALT 18 LAB L501.4600 0.20-1.00 mg/dL Normal T BILI 0.50 LAB L501.4700 0.00-0.30 mg/dL Normal D BILI 0.13 Performed By: #### L500.3400, L501.5200 #### [facility] [place], [address] MAGNESIUM Collected: 08/11/2018 Status: F Source: [place] 5:19 AM [facility] REPOSITORY TYPE CODE TESTS RESULT OUT OF RANGE REFERENCE UNITS LAB L501.5200 1.6-2.6 mg/dL Normal MG 2.0 Performed By: #### L500.3400, L501.5200 #### [facility] [place], [address] EMERGENCY DEPARTMENT Observed: 08/10/2018 Status: F Source: [place] SUMMARY 4:56 PM [facility] REPOSITORY [facility] Medical Records Department [address] [place] [address] Emergency Department Summary 08/10/18 1553 MR#: [id number] Acct: [id number] Name: SIRISHA DOMINGUEZ Gerson Rep #: [id number] : 1935 82 From: Ventura Lew MD PCP: Mayank Haq DO Status: ADM KAYDEN - ER Visit Summary Date of Service: 08/10/18 Chief Complaint: Dizziness History of Present Illness: The patient is a 82 F with dizziness that started several days ago. It feels like the room is spinning. It lasts for seconds to minutes at a time. It has been getting worse, and the patient almost fell. Symptoms are better when she sits down or uses her walker. No visual changes. No facial droop. No weakness or numbness. 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 Physical Examination: Afebrile and vital signs unremarkable. NIH stroke scale is 0. Heart regular. Lungs clear. Abdomen soft. Skin appears normal. Test Results: EKG showed sinus rhythm rate of 66. Labs fairly unremarkable. Coumadin therapeutic at 2.4. Troponin normal. Chest x-ray shows degenerative changes. CT brain showed nothing acute. Emergency Department Course and Treatment: Patient has intermittent vertigo. She has a history of temporal arteritis, syncope, OK, PE, et al. I am concerned this may be related to her temporal arteritis, but she does not have any other symptoms that she had with her prior bout. I also considered stroke given her risk factors. I also considered peripheral causes, but felt that these were less likely because she does not have other symptoms that are consistent with that. I discussed management options with the patient and her family. They are concerned about her safety with her difficulty walking. They do not feel comfortable with her going home and following up as an outpatient. They would like to rule out stroke. I spoke with the hospitalist for further care. Treatment Plan: As above Disposition: Admission Impression: 1. Vertigo This note was generated with [employer] dictation software. It may contain incorrect words, spelling, and punctuation that were not noted in review of the chart prior to signing ED Disposition - Plan for ED Patient: Chief Complaint: Dizziness Referrals: Mayank Haq, [Primary Care Provider] - What to do if you have Problems For any increased pain, shortness of breath, bleeding, nausea or vomiting, chest pain, or any unexpected problems, contact your Primary Care Provider. Call [facility] ([phone]) or report to the closest Emergency Room. Call 911 if necessary. 08/10/18 5715 <Electronically signed by Ventura Lew MD> Date Ventura Lew MD Cosigner Signature (If Indicated): Date CC: Mayank Haq DO BRAIN WITHOUT Observed: 08/10/2018 Status: F Source: [place] CONTRAST 4:42 PM [facility] REPOSITORY [facility] Imaging Services [address] [place] [address] Brain without Contrast MR#: [id number] Acct: [id number] Name: SIRISHA DOMINGUEZ Rep #: [id number] : 1935 F 82 From: Tenzin Mackay DO PCP: Mayank Haq DO Status: ADM KAYDEN Study: Brain without Contrast Date of Exam: 08/11/18 Exam# [id number] Ordering Dr: Curtis Camacho MD STUDY: MRI BRAIN WITHOUT CONTRAST REASON FOR EXAM: Female, 82 years old. Vertigo and dizziness for 3 days. TECHNIQUE: Standardized multiplanar fat and water weighted pulse sequences were obtained. COMPARISON: 02 April 2015 FINDINGS: There is moderate cerebral atrophy with widening of the extra- axial spaces and ventricular dilatation. There are multiple white matter hyperintensities, distributed throughout the deep white matter tracts of the cerebral hemispheres, consistent with moderate chronic white matter ischemic changes. Left parietal-occipital chronic volume loss possibly secondary to previous ischemia similar to [address] exam[address] There is no evidence for recent intracranial ischemia or other cause of cytotoxic edema on diffusion weighted imaging (DWI). Normal T2* images of the brain without demonstrated susceptibility artifact. There is no demonstrated hemosiderin stain. Normal bilateral basal ganglia. Normal thalami. There is no extra-axial fluid accumulation. Normal flow voids within the major intracranial circulation suggesting patency by spin echo criteria. Normal sella turcica, pituitary gland, infundibular stalk, optic chiasm and hypothalamus. Normal tectal plate and pineal gland. Normal midbrain, wolf and medulla. Normal cerebellum. Normal basal cisterns. Normal bilateral temporal bones. Normal bilateral internal auditory canals. No demonstrated orbital abnormality, within the constraints of a routine brain study. Right maxillary sinus fluid layering versus polyp/mucosal cyst is present. Normal calvarium and skull base. Normal visualized soft tissue structures. Normal visualized upper cervical spine. MRI/Brain without Contrast IMPRESSION: Stable senescent changes as above compared to 02 April 2015 with no evidence of acute intracranial bleed, mass or ischemia. Electronically Signed: Tenzin Mackay DO at 11:21 EST , Service support , CC: Mayank Haq DO; Curtis Camacho MD [employer]: Signed CBC W/DIFF, AUTOMATED Collected: 08/10/2018 Status: F Source: [place] 2:40 PM [facility]POS[facility] TYPE CODE TESTS RESULT OUT OF RANGE REFERENCE UNITS LAB L100.1000 4.4-11.0 K/mm3 Normal WBC 6.2 LAB L100.1200 4.2-5.4 M/mm3 Normal RBC 4.47 LAB L100.1300 12.0-15.0 g/dl Normal HGB 13.4 LAB L100.1400 37-47 % Normal HCT 40.6 LAB L100.1500 81-99 fL Normal MCV 90.8 LAB L100.1600 27.0-32.0 pg Normal MCH 30.0 LAB L100.1700 32-36 g/gl Normal MCHC 33.0 LAB L100.1810 11.6-14.6 % Normal RDW CV 14.1 LAB L100.1820 35.1-43.9 fl High RDW SD 46.9 LAB L100.1900 150-450 K/mm3 Normal PLT 192 LAB L100.2000 6.2-12.0 fl Normal MPV 9.0 LAB L100.2100 47-70 % Normal NEUT% 66.5 LAB L100.2200 19-41 % Normal LY% 22.5 LAB L100.2300 0-10 % Normal MONO% 8.5 LAB L100.2400 0-5 % Normal EO% 1.8 LAB L100.2500 0-1 % Normal BASO% 0.5 LAB L100.2550 0.0-0.9 % Normal IM GRAN % 0.200 Result Comment: IG% - Immature Granulocytes (promyelocytes, myelocytes and metamyelocytes) > 1% indicates that a LEFT SHIFT is Present. LAB L100.2620 2.0-7.7 X10 3/uL Normal Absolute Neut 4.1 LAB L100.2720 0.83-4.51 X10 3/ul Normal Absolute Lymph 1.40 Performed By: #### L100.0100, L101.9900 #### [facility] [address] [place], [place], [id number] ERYTHROCYTE SED RATE Collected: 08/10/2018 Status: F Source: [place] 2:40 PM [facility] REPOS[facility] TYPE CODE TESTS RESULT OUT OF RANGE REFERENCE UNITS LAB L102.0000 0-30 mm/hr Normal SED RATE 10 Performed By: #### L100.0100, L101.9900 #### [facility] [address] [place], [place], [id number] PROTHROMBIN TIME W/INR Collected: 08/10/2018 Status: F Source: [place] 2:40 PM [facility] REPOSITORY TYPE CODE TESTS RESULT OUT OF RANGE REFERENCE UNITS LAB L300.4150 11.7-14.9 SECONDS High PROTIME 26.6 LAB L300.4200 Normal INR 2.4 Performed By: #### L300.3900, L300.4310 #### [facility] [address] [place], [place], [id number] PARTIAL THROMBOPLAST Collected: 08/10/2018 Status: F Source: [place] TIME 2:40 PM [facility] REPOSITORY TYPE CODE TESTS RESULT OUT OF REFERENCE UNITS RANGE LAB L300.4310 24.1-36.2 Seconds High PTT 39.2 Performed By: #### L300.3900, L300.4310 #### [facility] [address] [place], [address] BASIC METABOLIC Collected: 08/10/2018 Status: F Source: [place] PROFILE (BMP) 2:40 PM [facility]POS[facility]ORY TYPE CODE TESTS RESULT OUT OF RANGE REFERENCE UNITS LAB L501.0100 74-106 mg/dL High GLU 109 Result Comment: Fasting Glucose result from 100 to 125 mg/dL suggests IMPAIRED HOMEOSTASIS per A.D.A. criteria. Please note revised GLUCOSE reference range effective 2017. LAB L501.1000 7-18 mg/dL Normal BUN 15 LAB L501.1100 0.55-1.02 mg/dL Normal CREAT,SERUM 0.82 Result Comment: The validity of the calculated GFR AND GFRAA in patients over 70 years has not been determined. Clinical correlation is essential. LAB L501.1110 >60 mL/min Normal EST GFR 71 Result Comment: Non- GFR Calc LAB L501.1115 >60 mL/min Normal EST GFR - AA 86 Result Comment: GFR Calc LAB L501.1255 ml/min Normal Estimated CRCL 47.25 LAB L501.1300 10-20 RATIO Normal BUN/CRE 18.2 LAB L501.2200 8.5-10 mg/dL Normal .1 CA 8.8 LAB L501.5300 136-14 mmol/L Normal 5 NA 143 LAB L501.5600 3.5-5. mmol/L Normal 1 K 3.9 LAB L501.5900 98-107 mmol/L High CL 109 LAB L501.6100 21.0-3 mmol/L Normal 2.0 CO2 26.0 LAB L501.6200 5-15 Normal GAP 8 Performed By: #### L500.2500, L501.4010 #### [facility] [address] [place], [place], [address] TROPONIN-I Collected: 08/10/2018 Status: F Source: [place] 2:40 PM [facility] REPOSITORY TYPE CODE TESTS RESULT OUT OF RANGE REFERENCE UNITS LAB L501.4010 <0.045 ng/mL Normal < 0.015 TROPONIN-I Result Comment: TROPONIN-I EXPECTED VALUES <0.045 Negative 0.045 - 0.590 Consistent with Cardiac Damage > OR = 0.600 Critical Value Not every elevated troponin is indicative of OK. These values should be used with clinical judgement in examining the patient's clinical picture for diagnosis. To establish a diagnosis of OK versus myocardial injury, there must be a demonstrated rise and/or fall in the troponin values, in addition to ischemic symptoms, EKG changes, new regional wall motion abnormality, and/or angiographical evidence. PLEASE NOTE: REFERENCE RANGES EDITED 18 Performed By: #### L500.2500, L501.4010 #### [facility] [address] [place], [address] BRAIN/HEAD WITHOUT Observed: 08/10/2018 Status: F Source: [place] CONTRAST 2:04 PM [facility] RE[facility]ITORY [facility] Imaging Services [address] [place] [address] Brain/Head without Contrast MR#: [id number] Acct: [id number] Name: SIRISHA DOMINGUEZ Rep #: [id number] : 1935 F 82 From: Abilio Adkins MD PCP: Mayank Haq DO Status: PRE ER Study: Brain/Head without Contrast Date of Exam: 08/10/18 Exam# [id number] Ordering Dr: Ventura Lew MD STUDY: CT BRAIN WITHOUT CONTRAST REASON FOR EXAM: Female, 82 years old. History of breast cancer. Vertigo RADIATION DOSAGE (If Supplied By Facility): CTDIvol = ( 44.99 ) mGy, DLP = ( 711.75 ) mGycm TECHNIQUE: Transaxial CT imaging of the brain was performed without administration of intravenous contrast material. Individualized dose optimization techniques were used for this CT. COMPARISON: May 27, 2015 CT brain FINDINGS: Encephalomalacia and gliosis in the left frontal and parietal lobes noted likely related with chronic ischemic injury similar to previous CT from May 27, 2015. Moderate chronic small vessel disease. No shift of midline structures, mass effect or compression of ventricles noted. No acute intra-articular extra-axial hemorrhage. Vascular calcifications of the internal carotid arteries. Opacification of the right maxillary sinus noted. No discrete mass in the posterior fossa. IMPRESSION: Stable CT examination of the brain. No evidence for acute intracranial hemorrhage, mass effect or acute large territory infarcts. Electronically Signed: Abilio Adkins, at 15:08 EST Tel , Service support , CT/Brain/Head without Contrast CC: Ventura Lew MD; Mayank Haq DO [employer]ator: Signed CHEST 1 VIEW Observed: 08/10/2018 Status: F Source: [place] 2:04 PM [facility] RE[facility]IT[facility] Imaging Services [address] [place] [address] Chest 1 View MR#: [id number] Acct: [id number] Name: SIRISHA DOMINGUEZ Rep #: [id number] : 1935 F 82 From: Juan Shipley MD PCP: Mayank Haq DO Status: REG ER Study: Chest 1 View Date of Exam: 08/10/18 Exam# [id number] Ordering Dr: Ventura Lew MD STUDY: X-RAY CHEST REASON FOR EXAM: Female, 82 years old. Dizziness TECHNIQUE: Single AP portable view of the chest. COMPARISON: February 20, 2018 FINDINGS: There are interstitial fibrotic changes of the lungs. There is no demonstrated pleural abnormality. Normal size heart. Normal mediastinum and kerry. Normal visualized pulmonary arteries. Normal visualized aortic arch and descending thoracic aorta. There are diffuse degenerative changes of the visualized thoracic spine. Degenerative change of the left shoulder. Postoperative changes in the soft tissues of the upper chest. There is no demonstrated abnormality of the visualized soft tissue structures of the upper abdomen. RAD/Chest 1 View IMPRESSION: Degenerative changes, as described above. No demonstrated acute cardiopulmonary process. Electronically Signed: Juan Shipley MD at 15:36 EST , Service support , CC: Ventura Lew MD; Mayank Haq DO [employer]ator: Signed ONCOLOGY VISIT REPORT Observed: 07/08/2018 Status: F Source: [place] 4:47 PM [facility] RE[facility] [place] [place] [address] OFFICE VISIT Date of Service: 07/08/18 1514 MR#: [id number] Acct: [id number] Name: SIRISHA DOMINGUEZ Rep #: [id number] : 1935 From: Dave López MD Age/Sex: 82/F Location: OMD Status: Signed Subjective - Date of Service Date of Service:: 07/08/18 - Chief Complaint F/u for R breast cancer. - History of Present Illness Ms. Sirisha Dominguez is a very pleasant 82 year-old woman with a remote past medical history of ovarian cancer status post hysterectomy and a strong family history of breast cancer. On 07/26/2006, she underwent a right breast lumpectomy per Dr. Geller. Pathology showed ductal carcinoma in situ; thus, she completed the recommended course of radiation therapy. She has undergone annual mammograms since that time, which have all been benign until 10/2014, when her mammogram was found to be abnormal. Ultrasound of the right breast demonstrated an irregular mass superior to her prior surgical site, BIRADS category 4. Needle core biopsy of this mass in the upper outer quadrant returned positive for invasive ductal carcinoma. The patient elected to undergo bilateral mastectomies with right sentinel lymph node biopsy on 11/26/2014. Pathology revealed right breast radical mastectomy positive for invasive ductal carcinoma nuclear grade 3. Tumor measured 2.5 x 2.0 x 1.5 cm. DCIS was present. Surgical margins were clear, and 6 out of 6 lymph nodes were negative for metastasis. Biology proved ER positive (95%), W[place] positive (95%), HER2 negative by FISH. Left breast pathology demonstrated DCIS nuclear grade 3 as well as fibrocystic changes with microcalcifications and focal atypical ductal hyperplasia. Oncotype DX score of 8 revealed a 10-year risk of recurrence at 6%. She began anastrozole on 02/18/2015. Baseline DEXA scan showed normal bone density but repeat on 05/23/2017 showed osteopenia so started Prolia on 06/18/2017. She had chronic cough so CT chest was requested and come in for follow up. - Past Medical/Social History Past Medical History Past Medical History: Pulmonary embolism Other Past Medical History: Temporal arteritis Cancer: Breast cancer,Ovarian cancer Past Surgical History Surgical: Cataract extraction,Hysterectomy,Knee replacement,Mastectomy Other Surgical History: Bilateral mastectomy L ankle repair Family History Paternal Past Medical History: COPD Maternal Past Medical History: Heart disease Social History Social History: No changes Smoking Status Never smoker Review of Systems Constitutional:: Denies: Fever, Sweats, Weight loss, Appetite change, Chills Cardiovascular:: Denies: Chest pain, Palpitations, Dyspnea on exertion, Orthopnea, PND, Shortness of breath Respiratory: Reports: Cough - coughing is better.. Denies: Hemoptysis, Shortness of Breath, Wheezing Gastrointestinal:: Denies: Abdominal pain, Nausea, Vomiting, Diarrhea, Constipation, Hematochezia Genitourinary: Denies: Dysuria, Hematuria, 15, Flank pain Musculoskeletal:: Denies: Back pain, Myalgia, Arthralgia Skin: Denies: Rash, Skin Changes, Wounds Neurological:: Denies: Headache, Dizziness, Visual changes, Tinnitus, Hearing loss Psychiatric: Denies: Anxiety, Depression, Homicidal Ideations, Suicidal Ideations Vital Signs Height 5 ft 4 in Weight: 79.379 kg Weight in Pounds 175.0 lbs Pulse Ox 96 - Physical Exam General: Alert, Oriented x3, No apparent distress Diagnostic Data: 06/25/[address]/Chest WITH Contrast IMPRESSION: Chronic changes with scarring, possible postradiation changes, areas of hyperinflation. No pulmonary edema, congestive heart failure or confluent pneumonia. No evidence of metastatic disease to soft tissue, bones, mediastinum, upper abdomen. Extent Stable cystic lesion within the pancreas since 2014 felt to be a benign entity. Other nonacute findings as outlined above. Electronically Signed: Deana Ma MD at 5:32 EDT Assessment and Plan Right breast cancer, stage II A(pT2 pN0 M0) on adjuvant anastrozole. Tolerating therapy. No evidence of disease clinically. Osteopenia on Prolia. Due for injection today. Chronic cough, CT chest is negative, probable viral illness. Plan is to continue adjuvant anastrozole. Return to clinic 5 months with CBC/CMP for Prolia injection. Medications: Prescriptions This Visit Medication Instructions Recorded Prednisone 2.5 mg PO DAILY 04/24/17 Warfarin [Coumadin ([facility])] 2 mg PO DAILY 04/24/17 Anastrozole [Arimidex] 1 mg PO DAILY #90 tab 12/17/17 Primary Care Provider: Alana Bardales MD Referring Provider: Alana Bardales MD - Problem List (1) History of right breast cancer Status: Chronic (2) Osteopenia Status: Chronic Qualifiers: Osteopenia location: femoral neck Laterality: right Qualified Code(s): M85.851 - Other specified disorders of bone density and structure, right thigh (3) Invasive ductal carcinoma of right breast, stage 2 Status: Resolved 07/08/18 1647 <Electronically signed by Dave López MD> Date Dave López MD Cosigner Signature: Date (if applicable) CC: CHEST WITH CONTRAST Observed: 06/25/2018 Status: F Source: [place] 4:40 PM [facility] RE[facility] Imaging Services [address] [place] [address] Chest WITH Contrast MR#: [id number] Acct: [id number] Name: SIRISHA DOMINGUEZ Rep #: [id number] : 1935 F 82 From: Deana Ma MD PCP: Mayank Haq DO Status: REG CLI Study: Chest WITH Contrast Date of Exam: 06/25/18 Exam# [id number] Ordering Dr: Dave López MD STUDY: CT CHEST WITH CONTRAST REASON FOR EXAM: Female, 82 years old. Cough, breast cancer history RADIATION DOSAGE (If Supplied By Facility): CTDIvol = ( 15.20 ) mGy, DLP = ( 536.78 ) mGycm TECHNIQUE: Transaxial 2.5 mm imaging was performed following intravenous administration of 100 ml of Isovue 300 contrast material. Multiplanar coronal and sagittal images were reformatted. Individualized dose optimization techniques were used for this CT. COMPARISON: CT chest 10/01/2015. 05/28/2015 with coronal images only. Chest x-ray 02/20/2018. FINDINGS: Minimal scarring in the apices, areas off hyperinflation, minimal thickening along the right anterior lower chest wall possible radiation changes, nonspecific compression of peripheral basilar parenchyma. There is no demonstrated pleural abnormality. Normal heart and pericardium. Normal mediastinum. Normal hilar regions. Normal enhanced pulmonary arteries. There is atherosclerotic calcification of the aortic arch with tortuosity and elongation of the aortic arch and descending thoracic aorta. There are multi-level degenerative changes of the spine, bilateral shoulder joints, demineralization of osseous structures. There are bilateral external breast prostheses. No distracted osseous lesions. Stable small cystic lesion involving the pancreas head measuring 1.2 x 1 cm, previously 1.2 x 0.9 cm. This is better delineated on the current contrast enhanced study. There is a hiatal hernia. Normal bilateral adrenal glands is imaged. CT/Chest WITH Contrast IMPRESSION: Chronic changes with scarring, possible postradiation changes, areas of hyperinflation. No pulmonary edema, congestive heart failure or confluent pneumonia. No evidence of metastatic disease to soft tissue, bones, mediastinum, upper abdomen. Extent Stable cystic lesion within the pancreas since 2014 felt to be a benign entity. Other nonacute findings as outlined above. Electronically Signed: Deana Ma MD at 5:32 EDT , Service support , CC: Dave López MD; Mayank Haq DO [employer]: Signed ONCOLOGY VISIT REPORT Observed: 06/24/2018 Status: F Source: [facility] 1:52 PM [facility] [place] [address] OFFICE VISIT Date of Service: 06/24/18 1329 MR#: [id number] Acct: [id number] Name: SIRISHA DOMINGUEZ Rep #: [id number] : 1935 From: Dave López MD Age/Sex: 82/F Location: OMD Status: Signed Subjective - Date of Service Date of Service:: 06/24/18 - Chief Complaint F/u for R breast cancer. - History of Present Illness Ms. Sirisha Dominguez is a very pleasant 82 year-old woman with a remote past medical history of ovarian cancer status post hysterectomy and a strong family history of breast cancer. On 07/26/2006, she underwent a right breast lumpectomy per Dr. Geller. Pathology showed ductal carcinoma in situ; thus, she completed the recommended course of radiation therapy. She has undergone annual mammograms since that time, which have all been benign until 10/2014, when her mammogram was found to be abnormal. Ultrasound of the right breast demonstrated an irregular mass superior to her prior surgical site, BIRADS category 4. Needle core biopsy of this mass in the upper outer quadrant returned positive for invasive ductal carcinoma. The patient elected to undergo bilateral mastectomies with right sentinel lymph node biopsy on 11/26/2014. Pathology revealed right breast radical mastectomy positive for invasive ductal carcinoma nuclear grade 3. Tumor measured 2.5 x 2.0 x 1.5 cm. DCIS was present. Surgical margins were clear, and 6 out of 6 lymph nodes were negative for metastasis. Biology proved ER positive (95%), WY positive (95%), HER2 negative by FISH. Left breast pathology demonstrated DCIS nuclear grade 3 as well as fibrocystic changes with microcalcifications and focal atypical ductal hyperplasia. Oncotype DX score of 8 revealed a 10-year risk of recurrence at 6%. She began anastrozole on 02/18/2015. Baseline DEXA scan showed normal bone density but repeat on 05/23/2017 showed osteopenia so started Prolia on 06/18/2017. Comes in for follow up. Feels well, forgetful otherwise fine. She has a chronic cough. - Past Medical/Social History Past Medical History Past Medical History: Pulmonary embolism Other Past Medical History: Temporal arteritis Cancer: Breast cancer,Ovarian cancer Past Surgical History Surgical: Cataract extraction,Hysterectomy,Knee replacement,Mastectomy Other Surgical History: Bilateral mastectomy L ankle repair Family History Paternal Past Medical History: COPD Maternal Past Medical History: Heart disease Social History Social History: No changes Smoking Status Never smoker Review of Systems Constitutional:: Denies: Fever, Sweats, Weight loss, Appetite change, Chills Cardiovascular:: Denies: Chest pain, Palpitations, Dyspnea on exertion, Orthopnea, PND, Shortness of breath Respiratory: Reports: Cough Gastrointestinal:: Denies: Abdominal pain, Nausea, Vomiting, Diarrhea, Constipation, Hematochezia Genitourinary: Denies: Dysuria, Hematuria, 15, Flank pain Musculoskeletal:: Denies: Back pain, Myalgia, Arthralgia Skin: Reports: Dryness Neurological:: Denies: Headache, Dizziness, Visual changes, Tinnitus, Hearing loss Psychiatric: Denies: Anxiety, Depression, Homicidal Ideations, Suicidal Ideations Vital Signs Height 5 ft 4 in Weight: 79.832 kg Weight in Pounds 176.0 lbs Pulse Ox 96 - Physical Exam General: Alert, Oriented x3, No apparent distress HEENT: Atraumatic, PERRLA, EOMI, Normocephalic Oropharynx:: Dry mucosa Neck:: Supple, Trachea midline. Negative for: JVD, bilateral Cardiac:: Regular rate, Regular rhythm, Normal S1, Normal S2. Negative for: Murmur Lungs: Clear to auscultation, Excusion symmetrical. Negative for: Rhonchi, Wheezes Abdomen:: Bowel sounds x 4, Soft, Non-tender, Non-distended. Negative for: Hepatosplenomegaly Neurological: Cranial nerves II-XII grossly intact Lymphatics:: Negative for: Cervical lymphadenopathy, Supraclavicular lymphadenopathy, Axillary lymphadenopathy Breast:: - - R MRM. Assessment and Plan Right breast cancer, stage II A(pT2 pN0 M0) on adjuvant anastrozole. Tolerating therapy. No evidence of disease clinically. Osteopenia on Prolia. Due for injection today. Chronic cough? cause. Plan is to proceed with PROLIA injection today and continue adjuvant anastrozole. Obtain CT chest. Return to clinic 1 month. Medications: Prescriptions This Visit Medication Instructions Recorded Prednisone 2.5 mg PO DAILY 04/24/17 Warfarin [Coumadin ([facility])] 2 mg PO DAILY 04/24/17 Anastrozole [Arimidex] 1 mg PO DAILY #90 tab 12/17/17 Medications Added to Medication List This Visit Denosumab [Prolia] ONC NC 06/24/18 13:27 Once 60 mg SQ X1 ONE Primary Care Provider: Alana Bardales MD Referring Provider: Alana Bardales MD - Problem List (1) History of right breast cancer Status: Chronic (2) Osteopenia Status: Chronic Qualifiers: Osteopenia location: femoral neck Laterality: right Qualified Code(s): M85.851 - Other specified disorders of bone density and structure, right thigh (3) Invasive ductal carcinoma of right breast, stage 2 Status: Resolved (4) Chronic cough Status: Acute Code Visit Office Visits / Consults: [id number] OV L4 Est 06/24/18 1352 <Electronically signed by Dave López MD> Date Dave López MD Cosigner Signature: Date (if applicable) CC: CBC W/DIFF, AUTOMATED Collected: 06/11/2018 Status: F Source: [facility] 4:02 PM [facility] Order Comment: Reason for Laboratory Test . TYPE CODE TESTS RESULT OUT OF RANGE REFERENCE UNITS LAB L100.1000 4.4-11.0 K/mm3 Normal WBC 8.3 LAB L100.1200 4.2-5.4 M/mm3 Normal RBC 4.68 LAB L100.1300 12.0-15.0 g/dl Normal HGB 14.0 LAB L100.1400 37-47 % Normal HCT 43.4 LAB L100.1500 81-99 fL Normal MCV 92.7 LAB L100.1600 27.0-32.0 pg Normal MCH 29.9 LAB L100.1700 32-36 g/gl Normal MCHC 32.3 LAB L100.1810 11.6-14.6 % Normal RDW CV 14.2 LAB L100.1820 35.1-43.9 fl High RDW SD 47.9 LAB L100.1900 150-450 K/mm3 Normal PLT 281 LAB L100.2000 6.2-12.0 fl Normal MPV 9.6 LAB L100.2100 47-70 % Normal NEUT% 62.6 LAB L100.2200 19-41 % Normal LY% 25.9 LAB L100.2300 0-10 % Normal MONO% 8.8 LAB L100.2400 0-5 % Normal EO% 2.4 LAB L100.2500 0-1 % Normal BASO% 0.2 LAB L100.2550 0.0-0.9 % Normal IM GRAN % 0.100 Result Comment: IG% - Immature Granulocytes (promyelocytes, myelocytes and metamyelocytes) > 1% indicates that a LEFT SHIFT is Present. LAB L100.2620 2.0-7.7 X10 3/uL Normal Absolute Neut 5.2 LAB L100.2720 0.83-4.51 X10 3/ul Normal Absolute Lymph 2.14 Performed By: #### L100.0100, L500.4050, L501.2300, L501.5200 #### [facility] [address] [place], [place], [address] COMPREHENSIVE METABOLIC Collected: 06/11/2018 Status: F Source: [facility] 4:02 PM [facility] Order Comment: Reason for Laboratory Test . EXTRA SST DRAWN TYPE CODE TESTS RESULT OUT OF RANGE REFERENCE UNITS LAB L501.0100 74-106 mg/dL Normal GLU 91 Result Comment: Please note revised GLUCOSE reference range effective 2017. LAB L501.1000 7-18 mg/dL Normal BUN 13 LAB L501.1100 0.55-1.02 mg/dL Normal CREAT,SERUM 0.78 Result Comment: The validity of the calculated GFR AND GFRAA in patients over 70 years has not been determined. Clinical correlation is essential. LAB L501.1110 >60 mL/min Normal EST GFR 75 Result Comment: Non- GFR Calc LAB L501.1115 >60 mL/min Normal EST GFR - AA 91 Result Comment: GFR Calc LAB L501.1300 10-20 RATIO Normal BUN/CRE 16.6 LAB L501.1500 6.4-8.2 g/dL T Normal PROT 6.7 LAB L501.1800 3.2-5.0 g/dL Normal ALB 3.5 LAB L501.1950 2.2-4.2 g/dL Normal GLOB 3.2 LAB L501.2000 0.9-2.4 RATIO Normal A/G 1.1 LAB L501.2200 8.5-10.1 mg/dL CA Normal 8.9 LAB L501.4100 15-37 U/L Low AST 14 LAB L501.4305 45-117 U/L Normal ALK P 112 LAB L501.4405 13-56 U/L Normal ALT 18 LAB L501.4600 0.20-1.00 mg/dL T Normal BILI 0.40 LAB L501.5300 136-145 mmol/L NA Normal 144 LAB L501.5600 3.5-5.1 mmol/L K Normal 4.0 LAB L501.5900 98-107 mmol/L High CL 110 LAB L501.6100 21.0-32.0 mmol/L Normal CO2 26.0 LAB L501.6200 5-15 Normal GAP 8 Performed By: #### L100.0100, L500.4050, L501.2300, L501.5200 #### [facility] [address] [facility]. [place], [place], [id number] PHOSPHORUS Collected: 06/11/2018 Status: F Source: [place] 4:02 PM [facility] Order Comment: Reason for Laboratory Test . EXTRA SST DRAWN TYPE CODE TESTS RESULT OUT OF RANGE REFERENCE UNITS LAB L501.2300 2.5-4.9 mg/dL Normal PHOS 3.8 Performed By: #### L100.0100, L500.4050, L501.2300, L501.5200 #### [facility] [address] [facility]. [place], [place], [id number] MAGNESIUM Collected: 06/11/2018 Status: F Source: [place] 4:02 PM [facility] Order Comment: Reason for Laboratory Test . EXTRA SST DRAWN TYPE CODE TESTS RESULT OUT OF RANGE REFERENCE UNITS LAB L501.5200 1.6-2.6 mg/dL Normal MG 1.9 Performed By: #### L100.0100, L500.4050, L501.2300, L501.5200 #### [facility] [address] [place], [place], [id number] ERYTHROCYTE SED RATE Collected: 05/14/2018 Status: F Source: [place] 12:21 PM [facility] TYPE CODE TESTS RESULT OUT OF RANGE REFERENCE UNITS LAB L102.0000 0-30 mm/hr Normal SED RATE 16 Performed By: #### L101.9900 #### [facility] [address] [place], [address] CRP Collected: 05/14/2018 Status: F Source: [place] 12:21 PM [facility] TYPE CODE TESTS RESULT OUT OF RANGE REFERENCE UNITS LAB L501.6710 0.0-3.0 mg/L High 6.68 C-REACTIVE PROT Result Comment: C-Reactive Protein (CRP) provides useful information for the diagnosis, therapy and monitoring of inflammatory processes and associated diseases. For the evaluation of Relative Risk for Cardiovascular Disease, a High Sensitivity CRP (HSCRP) should be ordered. Performed By: #### L501.6710 #### [facility] [address] [facility] [place], [address] 12 LEAD ELECTROCARDIOGRAM Observed: 02/22/2018 Status: F Source: [place] 9:19 AM [facility] Cardiovascular Services [address] [place] [address] 12 Lead EKG 02/20/181944 MR#: [id number] Acct: [id number] Name: SIRISHA DOMINGUEZ Rep #: [id number] : 1935 82 From: Ben Vincent MD Attending Dr: Status: DEP ER Ordering Dr: Joanie Ceballos MD Date: 02/20/18 Location: ED Sex: F C Admitted: Test Reason : CP Blood Pressure : / mmHG Vent. Rate : 080 BPM Atrial Rate : 080 BPM P-R Int : 140 ms QRS Dur : 078 ms QT Int : 372 ms P-R-T Axes : 034 -27 038 degrees QTc Int : 429 ms Normal sinus rhythm Normal ECG Confirmed by BEN VINCENT MD ([id number]), book or script editor SHELLIE NOLAN ([id number]) on 02/22/2018 9:18:35 AM Referred By: Jocy Webb Confirmed By:BEN VINCENT MD 02/22/18917 Date Ben Vincent MD CC: Joanie Ceballos MD; Alana Bardales MD Signed DISCHARGE INSTRUCTION Observed: 02/20/2018 Status: F Source: [facility] 9:30 PM [facility] RE[facility] Medical Records Department [address] [place] [address] Discharge Instruction 02/20/182129 MR#: [id number] Acct: [id number] Name: SIRISHA DOMINGUEZ Rep #: [id number] : 1935 82 From: Joanie Ceballos MD PCP: Alana Bardales MD Status: REG ER ED Disposition - Plan for ED Patient: Chief Complaint: Cough Instructions: ED Upper Resp Infec No Abx Tx Referrals: Alana Bardales MD [Primary Care Provider] - What to do if you have Problems For any increased pain, shortness of breath, bleeding, nausea or vomiting, chest pain, or any unexpected problems, contact your Primary Care Provider. Call [facility] ([phone]) or report to the closest Emergency Room. Call 911 if necessary. 02/20/182129 <Electronically signed by Joanie Ceballos MD> Date Joanie Ceballos MD Cosigner Signature (If Indicated): Date CC: Alana Bardales MD EMERGENCY DEPARTMENT Observed: 02/20/2018 Status: F Source: [facility] SUMMARY 9:29 PM [facility] Medical Records Department [address] [place] [address] Emergency Department Summary 02/20/182022 MR#: [id number] Acct: [id number] Name: SIRISHA DOMINGUEZ Rep #: [id number] : 1935 82 From: Joanie Ceballos MD PCP: Alana Bardales MD Status: REG ER - ER Visit Summary Date of Service: 02/20/18 Chief Complaint: Cough History of Present Illness: The patient is a 82 F presenting with cough 1 week. She states it is occasionally productive. She occasionally has shortness of breath with it but is not currently short of breath. She denies chest pain. Denies fever chills. She was seen by her primary care physician, Dr. Bardales. She continues to have symptoms. She denies other complaints. Physical Examination: Vitals are stable. Patient is afebrile. Alert no acute distress. HEENT exam is unremarkable. Pharynx is normal Neck is supple. Lungs are clear and equal bilaterally. Heart is regular rate and rhythm. Abdomen is soft nontender nondistended. Extremities are unremarkable. Skin is warm and dry. No focal neurologic deficit. Remainder of exam is unremarkable. Emergency Department Course and Treatment: EKG is sinus rate of 80 with no acute ischemic changes. CBC, chemistries unremarkable. Troponin is negative. Chest x-ray shows no acute process. Patient is resting comfortably in the emergency department. Her pulse ox with ambulation is 93-94% on room air. She feels well enough to go home. She will follow-up with her primary care physician. Advised return to ED for any worsening complaints. Disposition: Discharge Impression: Bronchitis This note was generated with [employer] dictation software. It may contain incorrect words, spelling, and punctuation that were not noted in review of the chart prior to signing ED Disposition - Plan for ED Patient: Chief Complaint: Cough Referrals: Alana Bardales MD [Primary Care Provider] - What to do if you have Problems For any increased pain, shortness of breath, bleeding, nausea or vomiting, chest pain, or any unexpected problems, contact your Primary Care Provider. Call [facility] ([phone]) or report to the closest Emergency Room. Call 911 if necessary. 02/20/182128 <Electronically signed by Joanie Ceballos MD> Date Jaonie Ceballos MD Cosigner Signature (If Indicated): Date CC: Alana Bardales MD CBC W/DIFF, AUTOMATED Collected: 02/20/2018 Status: F Source: [facility] 7:46 PM [facility] TYPE CODE TESTS RESULT OUT OF RANGE REFERENCE UNITS LAB L100.1000 4.4-11.0 K/mm3 Normal WBC 6.1 LAB L100.1200 4.2-5.4 M/mm3 Normal RBC 4.33 LAB L100.1300 12.0-15.0 g/dl Normal HGB 13.1 LAB L100.1400 37-47 % Normal HCT 39.5 LAB L100.1500 81-99 fL Normal MCV 91.2 LAB L100.1600 27.0-32.0 pg Normal MCH 30.3 LAB L100.1700 32-36 g/gl Normal MCHC 33.2 LAB L100.1810 11.6-14.6 % Normal RDW CV 13.6 LAB L100.1820 35.1-43.9 fl High RDW SD 44.9 LAB L100.1900 150-450 K/mm3 Normal PLT 219 LAB L100.2000 6.2-12.0 fl Normal MPV 8.8 LAB L100.2100 47-70 % Normal NEUT% 55.3 LAB L100.2200 19-41 % Normal LY% 32.1 LAB L100.2300 0-10 % Normal MONO% 9.7 LAB L100.2400 0-5 % Normal EO% 2.5 LAB L100.2500 0-1 % Normal BASO% 0.2 LAB L100.2550 0.0-0.9 % Normal IM GRAN % 0.200 Result Comment: IG% - Immature Granulocytes (promyelocytes, myelocytes and metamyelocytes) > 1% indicates that a LEFT SHIFT is Present. LAB L100.2620 2.0-7.7 X10 3/uL Normal Absolute Neut 3.4 LAB L100.2720 0.83-4.51 X10 3/ul Normal Absolute Lymph 1.96 Performed By: #### L100.0100 #### [facility] [address] [place], [address] PROTHROMBIN TIME W/INR Collected: 02/20/2018 Status: F Source: [facility] 7:46 PM [facility] TYPE CODE TESTS RESULT OUT OF RANGE REFERENCE UNITS LAB L300.4150 11.7-14.9 SECONDS High PROTIME 17.7 LAB L300.4200 Normal INR 1.5 Performed By: #### L300.3900 #### [facility] [address], [address] BASIC METABOLIC Collected: 02/20/2018 Status: F Source: [facility] PROFILE (BMP) 7:46 PM [facility] TYPE CODE TESTS RESULT OUT OF RANGE REFERENCE UNITS LAB L501.0100 74-106 mg/dL Normal GLU 97 Result Comment: Please note revised GLUCOSE reference range effective 2017. LAB L501.1000 7-18 mg/dL Normal BUN 10 LAB L501.1100 0.55-1.02 mg/dL Normal CREAT,SERUM 0.77 Result Comment: The validity of the calculated GFR AND GFRAA in patients over 70 years has not been determined. Clinical correlation is essential. LAB L501.1110 >60 mL/min Normal EST GFR 76 Result Comment: Non- GFR Calc LAB L501.1115 >60 mL/min Normal EST GFR - AA 92 Result Comment: GFR Calc LAB L501.1255 ml/min Normal Estimated CRCL 38.75 LAB L501.1300 10-20 RATIO Normal BUN/CRE 12.9 LAB L501.2200 8.5-10 mg/dL Low .1 CA 8.3 LAB L501.5300 136-14 mmol/L Normal 5 NA 138 LAB L501.5600 3.5-5. mmol/L Normal 1 K 4.1 LAB L501.5900 98-107 mmol/L Normal CL 105 LAB L501.6100 21.0-3 mmol/L Normal 2.0 CO2 24.0 LAB L501.6200 5-15 Normal GAP 9 Performed By: #### L500.2500, L501.4010 #### [facility] [address] [place], [address] TROPONIN-I Collected: 02/20/2018 Status: F Source: [facility] 7:46 PM [facility] TYPE CODE TESTS RESULT OUT OF RANGE REFERENCE UNITS LAB L501.4010 <0.045 ng/mL Normal < 0.015 TROPONIN-I Result Comment: TROPONIN-I EXPECTED VALUES <0.045 Negative 0.045 - 0.590 Consistent with Cardiac Damage > OR = 0.600 Critical Value Not every elevated troponin is indicative of OK. These values should be used with clinical judgement in examining the patient's clinical picture for diagnosis. To establish a diagnosis of OK versus myocardial injury, there must be a demonstrated rise and/or fall in the troponin values, in addition to ischemic symptoms, EKG changes, new regional wall motion abnormality, and/or angiographical evidence. PLEASE NOTE: REFERENCE RANGES EDITED 18 Performed By: #### L500.2500, L501.4010 #### [facility] [address] [place], [address] CHEST PA AND LATERAL Observed: 02/20/2018 Status: F Source: [place] 7:40 PM [facility] Imaging Services [address] [place] [address] Chest PA and Lateral MR#: [id number] Acct: [id number] Name: SIRISHA DOMINGUEZ Rep #: [id number] : 1935 F 82 From: Cricket Garcia MD PCP: Alana Bardales MD Status: REG ER Study: Chest PA and Lateral Date of Exam: 02/20/18 Exam# [id number] Ordering Dr: Joanie Ceballos MD STUDY: X-RAY CHEST REASON FOR EXAM: Female, 82 years old. Cough TECHNIQUE: Frontal and lateral views of the chest COMPARISON: 09/06/2015 FINDINGS: The lungs are clear. There are no pleural effusions. There is no pneumothorax. The heart is normal in size. The visualized osseous structures are within normal limits. RAD/Chest PA and Lateral IMPRESSION: No acute thoracic pathology. Electronically Signed: Cricket Garcia, at 20:27 EDT Tel , Service support , CC: Joanie Ceballos MD; Alana Bardales MD [employer] Product Fabricator: Signed ERYTHROCYTE SED RATE Collected: 02/13/2018 Status: F Source: [facility] 8:33 AM [facility] TYPE CODE TESTS RESULT OUT OF RANGE REFERENCE UNITS LAB L102.0000 0-30 mm/hr Normal SED RATE 16 Performed By: #### L101.9900 #### [facility] [address] [place], [address] CRP Collected: 02/13/2018 Status: F Source: [facility] 8:33 AM [facility] TYPE CODE TESTS RESULT OUT OF RANGE REFERENCE UNITS LAB L501.6710 0.0-3.0 mg/L High 19.20 C-REACTIVE PROT Result Comment: C-Reactive Protein (CRP) provides useful information for the diagnosis, therapy and monitoring of inflammatory processes and associated diseases. For the evaluation of Relative Risk for Cardiovascular Disease, a High Sensitivity CRP (HSCRP) should be ordered. Performed By: #### L501.6710 #### [facility] [address] [place], [address] ONCOLOGY VISIT REPORT Observed: 12/17/2017 Status: F Source: [place] 5:02 PM [facility] RE[facility] [facility] [place] [address] OFFICE VISIT Date of Service: 12/17/17 1644 MR#: [id number] Acct: [id number] Name: SIRISHA DOMINGUEZ Rep #: [id number] : 1935 From: Dave López MD Age/Sex: 82/F Location: OMD Status: Signed Subjective - Date of Service Date of Service:: 12/17/17 - Chief Complaint F/u for R breast cancer. - History of Present Illness Ms. Sirisha Dominguez is a very pleasant 82 year-old woman with a remote past medical history of ovarian cancer status post hysterectomy and a strong family history of breast cancer. On 07/26/2006, she underwent a right breast lumpectomy per Dr. Geller. Pathology showed ductal carcinoma in situ; thus, she completed the recommended course of radiation therapy. She has undergone annual mammograms since that time, which have all been benign until 10/2014, when her mammogram was found to be abnormal. Ultrasound of the right breast demonstrated an irregular mass superior to her prior surgical site, BIRADS category 4. Needle core biopsy of this mass in the upper outer quadrant returned positive for invasive ductal carcinoma. The patient elected to undergo bilateral mastectomies with right sentinel lymph node biopsy on 11/26/2014. Pathology revealed right breast radical mastectomy positive for invasive ductal carcinoma nuclear grade 3. Tumor measured 2.5 x 2.0 x 1.5 cm. DCIS was present. Surgical margins were clear, and 6 out of 6 lymph nodes were negative for metastasis. Biology proved ER positive (95%), WY positive (95%), HER2 negative by FISH. Left breast pathology demonstrated DCIS nuclear grade 3 as well as fibrocystic changes with microcalcifications and focal atypical ductal hyperplasia. Oncotype DX score of 8 revealed a 10-year risk of recurrence at 6%. She began anastrozole on 02/18/2015. Baseline DEXA scan showed normal bone density but repeat on 05/23/2017 showed osteopenia so started Prolia on 06/18/2017. Comes in for follow up. Feels well, forgetful otherwise fine. - Past Medical/Social History Past Medical History Past Medical History: Pulmonary embolism Other Past Medical History: Temporal arteritis Cancer: Breast cancer,Ovarian cancer Past Surgical History Surgical: Cataract extraction,Hysterectomy,Knee replacement,Mastectomy Other Surgical History: Bilateral mastectomy L ankle repair Family History Paternal Past Medical History: COPD Maternal Past Medical History: Heart disease Social History Social History: No changes Smoking Status Never smoker Review of Systems Constitutional:: Denies: Fever, Sweats, Weight loss, Appetite change, Chills Cardiovascular:: Denies: Chest pain, Palpitations, Dyspnea on exertion, Orthopnea, PND, Shortness of breath Respiratory: Denies: Cough, Hemoptysis, Shortness of Breath, Wheezing Gastrointestinal:: Denies: Abdominal pain, Nausea, Vomiting, Diarrhea, Constipation, Hematochezia Genitourinary: Denies: Dysuria, Hematuria, 15, Flank pain Musculoskeletal:: Denies: Back pain, Myalgia, Arthralgia Skin: Denies: Rash, Skin Changes, Wounds Neurological:: Denies: Headache, Dizziness, Visual changes, Tinnitus, Hearing loss Psychiatric: Denies: Anxiety, Depression, Homicidal Ideations, Suicidal Ideations Vital Signs Height 5 ft 4 in Weight: 83.461 kg Weight in Pounds 184.0 lbs Pulse Ox 96 - Physical Exam General: Alert, Oriented x3, No apparent distress HEENT: Atraumatic, PERRLA, EOMI, Normocephalic Oropharynx:: Dry mucosa Neck:: Supple, Trachea midline. Negative for: JVD, bilateral Cardiac:: Regular rate, Regular rhythm, Normal S1, Normal S2. Negative for: Murmur Lungs: Clear to auscultation, Excusion symmetrical. Negative for: Rhonchi, Wheezes Abdomen:: Bowel sounds x 4, Soft, Non-tender, Non-distended. Negative for: Hepatosplenomegaly Extremities:: - - decreased ROM R shoulder.. Negative for: Cyanosis, Edema Neurological: Neuro grossly intact Skin:: Negative for: Lesions, Rash, Petechiae, Ecchymosis Lymphatics:: Negative for: Cervical lymphadenopathy, Supraclavicular lymphadenopathy, Axillary lymphadenopathy Breast:: - - Bilateral mastectomy scars. Laboratory Data: 12/10/2017 CMP reviewed, within normal limits. Assessment and Plan Right breast cancer, stage II A(pT2 pN0 M0) on adjuvant anastrozole. Tolerating therapy. No evidence of disease clinically. Osteopenia on Prolia. Due for second injection today. Plan is to proceed with second PROLIA injection today and continue adjuvant anastrozole. Return to clinic 6 months with CBC CMP for Prolia. Medications: Prescriptions This Visit Medication Instructions Recorded Prednisone 2 mg PO DAILY 04/24/17 Warfarin [Coumadin (PBKC)] 2 mg PO DAILY 04/24/17 Anastrozole [Arimidex] 1 mg PO DAILY #90 tab 12/17/17 Primary Care Provider: Alana Bardales MD Referring Provider: Alana Bardales MD - Problem List (1) History of right breast cancer Status: Chronic (2) Osteopenia Status: Chronic Qualifiers: Osteopenia location: femoral neck Laterality: right Qualified Code(s): M85.851 - Other specified disorders of bone density and structure, right thigh (3) Invasive ductal carcinoma of right breast, stage 2 Status: Resolved 12/17/17 1702 <Electronically signed by Dave López MD> Date Dave López MD Cosigner Signature: Date (if applicable) CC: BASIC METABOLIC Collected: 12/10/2017 Status: F Source: [place] PROFILE (BMP) 4:41 PM [facility] [place] [facility] Order Comment: Order Date: 11/21/17 Order Info: 0667-1 - BMP Order Info: 37436-2 - LIPID Order Info: 1920-8 - AST Order Info: 1742-6 - ALT TYPE CODE TESTS RESULT OUT OF RANGE REFERENCE UNITS LAB L501.0100 74-106 mg/dL High GLU 124 Result Comment: Fasting Glucose result from 100 to 125 mg/dL suggests IMPAIRED HOMEOSTASIS per A.D.A. criteria. Please note revised GLUCOSE reference range effective 2017. LAB L501.1000 7-18 mg/dL Normal BUN 15 LAB L501.1100 0.55-1.02 mg/dL Normal CREAT,SERUM 0.93 Result Comment: The validity of the calculated GFR AND GFRAA in patients over 70 years has not been determined. Clinical correlation is essential. LAB L501.1110 >60 mL/min Normal EST GFR 62 Result Comment: Non- GFR Calc LAB L501.1115 >60 mL/min Normal EST GFR - AA 75 Result Comment: GFR Calc LAB L501.1255 ml/min Normal Estimated CRCL 41.66 LAB L501.1300 10-20 RATIO Normal BUN/CRE 16.2 LAB L501.2200 8.5-10 mg/dL Normal .1 CA 8.7 LAB L501.5300 136-14 mmol/L Normal 5 NA 143 LAB L501.5600 3.5-5. mmol/L Normal 1 K 4.3 Result Comment: Slight Hemolysis, Result may be falsely increased. LAB L501.5900 98-107 mmol/L High CL 112 LAB L501.6100 21.0-32.0 mmol/L Normal CO2 25.0 LAB L501.6200 5-15 Normal 6 GAP Performed By: #### L500.2500, L500.4100, L501.4100, L501.4405 #### [facility] [address] [place], [place], [address] LIPID PROFILE Collected: 12/10/2017 Status: F Source: [place] 4:41 PM [facility] [place] [facility] Order Comment: Order Date: 11/21/17 Order Info: 06 - BMP Order Info: 92791-3 - LIPID Order Info: 1920-03 - AST Order Info: 1742-01 - ALT TYPE CODE TESTS RESULT OUT OF RANGE REFERENCE UNITS LAB L501.4900 200 mg/dL Normal CHOL 142 Result Comment: <200 mg/dL Desirable 200-240 mg/dL Borderline >240 mg/dL High Risk LAB L501.5000 mg/dL Normal TRIG 195 Result Comment: The drugs N-Acetylcysteine and Metamizole may falsely depress this assay. Serum Triglycerides Reference Interval Normal <150 mg/dL Borderline high 150 - 199 mg/dL High 200 - 499 mg/dL Very High > or = 500 mg/dL LAB L501.6400 mg/dL Normal HDL 52 Result Comment: The drugs N-Acetylcysteine and Metamizole may falsely depress this assay. Reference Range HDL <40 mg/dL Low HDL Cholesterol HDL >or= 60 mg/dL High HDL Cholesterol LAB L501.6500 0-130 mg/dL Normal LDL 51 LAB L501.6600 5-40 mg/dL Normal VLDL 39 Performed By: #### L500.2500, L500.4100, L501.4100, L501.4405 #### [facility] [address] [place], [place], [address] AST(SGOT) Collected: 12/10/2017 Status: F Source: [place] 4:41 PM [facility] [place] [facility] Order Comment: Order Date: 11/21/17 Order Info: 0667- - BMP Order Info: 30318-8 - LIPID Order Info: 1920-03 - AST Order Info: 1742-01 - ALT TYPE CODE TESTS RESULT OUT OF RANGE REFERENCE UNITS LAB L501.4100 15-37 U/L Normal AST 22 Result Comment: Slight Hemolysis, Result may be falsely increased. Performed By: #### L500.2500, L500.4100, L501.4100, L501.4405 #### [facility] [address] [place], [address] ALANINE AMINOTRANSFERAS Collected: 12/10/2017 Status: F Source: KREA (SGPT) 4:41 PM [facility] [place] [facility] Order Comment: Order Date: 11/21/17 Order Info: 0667-1 - BMP Order Info: 75974-7 - LIPID Order Info: 1920-8 - AST Order Info: 1742-6 - ALT TYPE CODE TESTS RESULT OUT OF RANGE REFERENCE UNITS LAB L501.4405 13-56 U/L Normal ALT 19 Performed By: #### L500.2500, L500.4100, L501.4100, L501.4405 #### [facility] [address] [place], [address] BASIC METABOLIC Collected: 11/21/2017 Status: F Source: KERA PROFILE (BMP) 11:02 AM [facility] [place] Order Comment: Order Date: 05/25/17 Order Info: 0667-1 - BMP TYPE CODE TESTS RESULT OUT OF RANGE REFERENCE UNITS LAB L501.0100 74-106 mg/dL High GLU 127 Result Comment: Fasting Glucose result greater than or equal to 126 mg/dL suggests DIABETES MELLITUS per A.D.A. criteria. Please note revised GLUCOSE reference range effective 2017. LAB L501.1000 7-18 mg/dL Normal BUN 16 LAB L501.1100 0.55-1.02 mg/dL Normal CREAT,SERUM 0.93 Result Comment: The validity of the calculated GFR AND GFRAA in patients over 70 years has not been determined. Clinical correlation is essential. LAB L501.1110 >60 mL/min Normal EST GFR 62 Result Comment: Non- GFR Calc LAB L501.1115 >60 mL/min Normal EST GFR - AA 75 Result Comment: GFR Calc LAB L501.1300 10-20 RATIO Normal BUN/CRE 17.3 LAB L501.2200 8.5-10.1 mg/dL CA Normal 9.3 LAB L501.5300 136-145 mmol/L NA Normal 144 LAB L501.5600 3.5-5.1 mmol/L K Normal 4.0 LAB L501.5900 98-107 mmol/L CL Normal 107 LAB L501.6100 21.0-32.0 mmol/L Normal CO2 29.0 LAB L501.6200 5-15 Normal GAP 8 Performed By: #### L500.2500 #### [facility] [address] [place], [address] LIPID PROFILE Collected: 11/21/2017 Status: F Source: [place] 11:02 AM [facility] [place] [facility] Order Comment: Order Date: 05/25/17 Order Info: 0667-1 - BMP TYPE CODE TESTS RESULT OUT OF RANGE REFERENCE UNITS LAB L501.4900 200 mg/dL Normal CHOL 156 Result Comment: <200 mg/dL Desirable 200-240 mg/dL Borderline >240 mg/dL High Risk LAB L501.5000 mg/dL Normal TRIG 153 Result Comment: The drugs N-Acetylcysteine and Metamizole may falsely depress this assay. Serum Triglycerides Reference Interval Normal <150 mg/dL Borderline high 150 - 199 mg/dL High 200 - 499 mg/dL Very High > or = 500 mg/dL LAB L501.6400 mg/dL Normal HDL 58 Result Comment: The drugs N-Acetylcysteine and Metamizole may falsely depress this assay. Reference Range HDL <40 mg/dL Low HDL Cholesterol HDL >or= 60 mg/dL High HDL Cholesterol LAB L501.6500 0-130 mg/dL Normal LDL 67 LAB L501.6600 5-40 mg/dL Normal VLDL 31 Performed By: #### L500.4100, L501.4100, L501.4405 #### [facility] [address] [place], [address] AST(SGOT) Collected: 11/21/2017 Status: F Source: [place] 11:02 [facility] [place] [facility] Order Comment: Order Date: 05/25/17 Order Info: 0667-1 - BMP TYPE CODE TESTS RESULT OUT OF RANGE REFERENCE UNITS LAB L501.4100 15-37 U/L Normal AST 17 Performed By: #### L500.4100, L501.4100, L501.4405 #### [facility] [address] [place], [address] ALANINE AMINOTRANSFERAS Collected: 11/21/2017 Status: F Source: KERA (SGPT) 11:02 AM [facility] [place] Order Comment: Order Date: 05/25/17 Order Info: 0667-1 - BMP TYPE CODE TESTS RESULT OUT OF RANGE REFERENCE UNITS LAB L501.4405 13-56 U/L Normal ALT 19 Result Comment: Please note revised ALT reference range effective 2017. Performed By: #### L500.4100, L501.4100, L501.4405 #### [facility] [address] [place], [address] ERYTHROCYTE SED RATE Collected: 10/20/2017 Status: F Source: KER[place] 1:59 PM [facility] TYPE CODE TESTS RESULT OUT OF RANGE REFERENCE UNITS LAB L102.0000 0-30 mm/hr Normal SED RATE 18 Performed By: #### L101.9900 #### [facility] [address] [place], [address] CRP Collected: 10/20/2017 Status: F Source: [place]ER[place] 1:59 PM [facility] [place] TYPE CODE TESTS RESULT OUT OF RANGE REFERENCE UNITS LAB L501.6710 0.0-3.0 mg/L High 12.90 C-REACTIVE PROT Result Comment: C-Reactive Protein (CRP) provides useful information for the diagnosis, therapy and monitoring of inflammatory processes and associated diseases. For the evaluation of Relative Risk for Cardiovascular Disease, a High Sensitivity CRP (HSCRP) should be ordered. Performed By: #### L501.6710 #### [facility] [address] [place], [address] ALLERGIES ALLERGIES DATE TYPE / CODE NAME / CODE REACTION SEVERITY SOURCE 08/10/2018 Drug No Known Unknown [facility] Allergy/4160 Allergies/F00 Hospital 56626(SNOMED 4578222(RXNOR Repository CT) M) ENCOUNTERS ENCOUNTERS ADMIT/DISCHARGE ACCOUNT ADMITTING ENCOUNTER LOCATION SOURCE NUMBER CLASS 08/11/2018/ [id number] Janice, Inpatient [place] 8 9 Curtis F Encounter [facility] ing:PCURoom: Repository [id number]: 1 08/11/2018 [id number] Kotslorenas, Ambulatory BMSBuilding:B [place] 2 Curtis F [facility] Repository 08/10/2018 [id number] Mekhis, Ambulatory BMSBuilding:B [place] 5 [facility] F [facility] Repository 08/10/2018 [id number] Kotsonis, Ambulatory BMSBuilding:B [place] 6 [place] F [facility] Repository 07/08/2018 [id number] Ambulatory BMSBuilding:B [place] 9 MS.[facility] Repository 07/08/2018 [id number] Ambulatory [place] 0 [facility] ing:OMD Repository 06/25/2018 [id number] Ambulatory [place] 7 [facility] Hospital ing:CT Repository 06/24/2018 [id number] Ambulatory BMSBuilding:B [place] 4 MS.[facility] Repository 06/11/2018 [id number] Ambulatory [place] 4 [facility] Hospital ing:LAB Repository 05/14/2018 [id number] Ambulatory [place] 4 [facility] Hospital ing:LAB Repository 02/20/2018/ [id number] Emergency [place] 8 4 [facility] Hospital ing:ED Repository 02/13/2018 [id number] Ambulatory [place] 7 [facility] Hospital ing:LAB Repository 12/17/2017 [id number] Ambulatory BMSBuilding:B [place] 4 [facility] Repository 11/21/2017 [id number] Ambulatory [place] 2 [facility] Hospital ing:MFPLAB Repository 10/20/2017 [id number] Ambulatory [place] 7 [facility] Hospital ing:LAB Repository PAYERS PAYERS ENCOUNTER GUARANTOR PAYER SUBSCRIBER SOURCE 08/11/2018 SIRISHA J Primary SIRISHA J [place] [id number] N Insurance:MEDICARE DARLINB: [facility] PART A BPolicy [id number] [place] Number: Repository [address]Sts: 330 [id number] [phone] (HP) Date:2018-08-10 08/11/2018 Secondary SIRISHA J [place] Insurance:CIGNAPolicy MCKINLEYDOB: Community Number: [id number] Hospital [id number] Repository Date:1408-93-55[address]Ldhwzmvrnpb, [place] [address]VA: 08/11/2018 Tertiary NOT GIVENUNK [place] Insurance:SELF PAY On License [facility]: Effective Repository Date:2018-08-10 08/11/2018 SIRISHA J Primary SIRISHA J [place] [id number] N Insurance:MEDICARE MCKINLEYDOB: Community [place] [facility] [id number] Health Hospital [place] Number: Repository [address]Kkd: 330 [id number] [phone] () Date:2018-08-10 08/11/2018 Secondary SIRISHA J [place] Insurance:CIGNAPolicy MCKINLEYDOB: Community Number: [id number] Hospital [id number] Repository Date:7677-92-79Ng [address]Egcoutfdmug, [place] [address]OS: 08/11/2018 Tertiary NOT GIVENUNK [place] Insurance:SELF PAY On License [facility] Number: Effective Repository Date:2018-08-11 08/10/2018 SIRISHA J Primary SIRISHA J [place] [id number] N Insurance:MEDICARE MCKINLEYDOB: Community [place] PART [place] [facility] [id number] [facility] [place] Number: Repository [address]Hww: 330 [id number] [phone] (HP) Date:2018-08-10 08/10/2018 Secondary SIRISHA J [place] Insurance:CIGNAPolicy MCKINLEYDOB: Community Number: [id number] Hospital [id number] Repository Date:3134-90-23Ix [address]Zjsoqfacdey, [place] [address]VH: 08/10/2018 Tertiary NOT GIVENUNK [place] Insurance:SELF PAY [facility] Number: Effective Repository Date:2018-08-10 08/10/2018 SIRISHA J Primary SIRISHA J [place] [id number] N Insurance:MEDICARE MCKINLEYDOB: Community [place] [facility] [id number] Number: Repository [address]Nkz: 330 [id number] [phone] () Date:2018-08-10 08/10/2018 Secondary SIRISHA J [place] Insurance:CIGNAPolicy MCKINLEYDOB: Community Number: [id number] Hospital [id number] Repository Date:1353-58-28Rq [address]Qhzvrrtljtd, [place] [address]XF: 08/10/2018 Tertiary NOT GIVENUNK [place] Insurance:SELF PAY [facility] Number: Effective Repository Date:2018-08-10 07/08/2018 SIRISHA J Primary SIRISHA J [place] [id number] N Insurance:MEDICARE MCKINLEYDOB: Community [place] [facility] [id number] Number: Repository [address]Jrv: 330 [id number] [phone] () Date:2002-08-27 07/08/2018 Secondary SIRISHA J [place] Insurance:CIGNAPolicy MCKINLEYDOB: Community Number: [id number] Hospital [id number] Repository Date:3361-72-33Vp [address]Xmiwmenvszv, [place] [address]NA: 07/08/2018 Tertiary NOT GIVENUNK [place] Insurance:SELF PAY [facility] Number: Effective Repository Date:2018-07-08 07/08/2018 SIRISHA J Primary SIRISHA J [place] [id number] N Insurance:MEDICARE MCKINLEYDOB: Community [place] [facility] [id number] Number: Repository [address]Jxt: 330 [id number] [phone] (HP) Date:2002-08-27 07/08/2018 Secondary SIRISHA J [place] Insurance:CIGNAPoljuan luisy ALBERTODOB: Community Number: [id number] Hospital [id number] Repository Date:1438-87-66Ob [address]Awrlhfoxgkh, [place] [address]RI: 07/08/2018 Tertiary NOT GIVENUNK [place] Insurance:SELF PAY [facility] Number: Effective Repository Date:2016-11-16 06/25/2018 SIRISHA J Primary SIRISHA J [place] [id number] N Insurance:MEDICARE MCKINLEYDOB: Community [place] [facility] [id number] Number: Repository [address]Jmf: 330 [id number] [phone] () Date:2018-06-24 06/25/2018 Secondary SIRISHA J [place] Insurance:CIGNAPoljuan luisy ALBERTODOB: Community Number: [id number] Hospital [id number] Repository Date:1956-53-82Ba [address]Fkbtyszdjdh, [place] [address]BS: 06/25/2018 Tertiary NOT GIVENUNK [place] Insurance:SELF PAY [facility] Number: Effective Repository Date:2018-06-24 06/24/2018 SIRISHA J Primary SIRISHA J [place] [id number] N Insurance:MEDICARE MCKINLEYDOB: Community [place] [facility] [id number] Number: Repository [address]Kzs: 330 [id number] [phone] () Date:2002-08-27 06/24/2018 Secondary SIRISHA J [place] Insurance:CIGNAPolicy MCKINLEYDOB: Community Number: [id number] Hospital [id number] Repository Date:0939-31-97Zd [address]Dwsneuqakwy, [place] [address]TA: 06/24/2018 Tertiary NOT GIVENUNK [place] Insurance:SELF PAY [facility] Number: Effective Repository Date:2018-06-24 06/11/2018 SIRISHA J Primary SIRISHA J [place] [id number] N Insurance:MEDICARE MCKINLEYDOB: Community [place] [facility] [id number] [place] Number: Repository [address]Rsd: 330 [id number] [phone] (HP) Date:2018-06-11 06/11/2018 Secondary SIRISHA J [place] Insurance:CIGNAPolicy MCKINLEYDOB: Community Number: [id number] Hospital [id number] Repository Date:5998-90-73Vf [address]Armiptiibgr, [place] [address]VS: 06/11/2018 Tertiary NOT GIVENUNK [place] Insurance:SELF PAY [facility] Number: Effective Repository Date:2018-06-11 05/14/2018 Sirisha J Primary Sirisha J [place] [id number] N Insurance:MEDICARE MckinleyDOB: Community [place] [facility] [id number] [place] Number[place] Repository [address]Lwv: 330 [id number] [phone] (HP) Date:2018-05-14 05/14/2018 Secondary Sirisha J [place] Insurance:CIGNAPolicy MckinleyDOB: Community Number: [id number] Hospital [id number] Repository Date:7812-91-28Vp [address]Liphanpwfkd, [place] [address]QX: 05/14/2018 Tertiary NOT GIVENUNK [place] Insurance:SELF PAY [facility] Number: Effective Repository Date:2018-05-14 02/20/2018 Sirisha J Primary Sirisha J [place] [id number] N Insurance:MEDICARE MckinleyDOB: Community [place] [facility] [id number] [place] Number: Repository [address]Nsb: 330 [id number] [phone] (HP) Date:2018-02-20 02/20/2018 Secondary Sirisha J [place] Insurance:CIGNAPolicy MckinleyDOB: Community Number: [id number] Hospital [id number] Repository Date:5685-63-86Ye [address]Pnbkrnorvbg, [place] [address]AS: 02/20/2018 Tertiary NOT GIVENUNK [place] Insurance:SELF PAY [facility] Number: Effective Repository Date:2018-02-20 02/13/2018 Sirisha J Primary Sirisha J [place] [id number] N Insurance:MEDICARE MckinleyDOB: Community [place] PART [facility] [id number] Number: Repository [address]Xfw: [phone]) [id number] [phone] () Date:2018-02-13 02/13/2018 Secondary Sirisha J [place] Insurance:CIGNAPolicy BrunokinleyDOB: Community Number: [id number] Hospital [id number] Repository Date:3944-34-96Mw [address]Nyxrasordjw, [place] [address]GW: 02/13/2018 Tertiary NOT GIVENUNK [place] Insurance:SELF PAY [facility] Number: Effective Repository Date:2018-02-13 12/17/2017 Sirisha J Primary Sirisha J [place] [id number] N Insurance:MEDICARE MckinleyDOB: Community [place] [facility] [id number] Number: Repository [address]Hyx: [id number] [phone] Date:2002-08-27 () 12/17/2017 Secondary Sirisha J [place] Insurance:CIGNAPolicy MckinleyDOB: Community Number: [id number] Hospital [id number] Repository Date:0590-47-67Xh [address]Xqiztnztaot, [place] [address]WG: 12/17/2017 Tertiary NOT GIVENUNK [place] Insurance:SELF PAY [facility] Number: Effective Repository Date:2017-12-17 11/21/2017 Sirisha J Primary Sirisha J [place] [id number] N Insurance:MEDICARE MckinleyDOB: Community [place] PART [facility] [id number] [place] Number: Repository [address]Jqc: [id number] [phone] Date:2017-11-21 () 11/21/2017 Secondary Sirisha J [place] Insurance:CIGNAPolicy McfaizaleyDOB: Community Number: [id number] Hospital [id number] Repository Date:1424-56-66[address] [address]XG: 11/21/2017 Tertiary NOT GIVENUNK [place] Insurance:SELF PAY [facility] Number: Effective Repository Date:2017-11-21 10/20/2017 Sirisha J Primary Sirisha J [place] [id number] N Insurance:MEDICARE McnikoDOB: Community [place] [facility] [id number] [facility] [place] Number[place] Repository [address]Dsu: [id number] [phone] Date:2017-10-20 () 10/20/2017 Secondary Sirisha J [place] Insurance:CIGNAPolicy FlorleyDOB: Community Number: [id number] Hospital [id number] Repository Date:8560-29-21RF MYLES GRAVES [address]QR: 10/20/2017 Tertiary NOT GIVENUNK [place] Insurance:SELF PAY [facility] Number: Effective Repository Date:2017-10-20
== END 2018-08-12 13:32 | disposition home or self-care (01) | DRG 312 ==
LOC: ED 15:21 → PCU 16:45
PROVIDERS: Admitting Provider Family Medicine; Emergency Provider Emergency Medicine; Family Provider Family Medicine; PCP Family Medicine; Referring Provider Family Medicine; Visit Provider Internal Medicine
DX: I95.1 Orthostatic hypotension (principal); M31.6 Other giant cell arteritis; K21.9 Gastro-esophageal reflux disease without esophagitis; M85.80 Other specified disorders of bone density and structure, unspecified site; Z86.711 Personal history of pulmonary embolism; B91 Sequelae of poliomyelitis; Z79.811 Long term (current) use of aromatase inhibitors; Z86.718 Personal history of other venous thrombosis and embolism; Z85.3 Personal history of malignant neoplasm of breast; Z85.43 Personal history of malignant neoplasm of ovary; Z90.710 Acquired absence of both cervix and uterus; Z90.10 Acquired absence of unspecified breast and nipple
CPT/HCPCS: 36415; 70450; 70551; 71045; 80048; 80076; 83735; 84100; 84484; 85025; 85610; 85652; 85730; 93005; 97161; 97166; 99283; J7030; A4216

== ENCOUNTER → 2018-11-08 13:38 | Outpatient (CLI) | payer MEDICARE, OTHER, SELFPAY ==
[2018-08-10 16:56] VITALS: BMI 29.1
[2018-11-08 13:41] LABS: Mucous, Urine 0 SEEN /hpf (<or=2+); Red Blood Cells-Urine 0 SEEN /hpf (0-5)
[2018-11-08 15:49] LABS: Color, Urine Yellow (Yellow); Glucose, Dipstick Normal (Normal); Ketone-Dipstick Negative (Negative); Leukocyte Esterase-Dipstick 25 /ul (Negative); Nitrite-Dipstick Negative (Negative); Occult Blood-Urine 10 /ul (Negative); Protein-Dipstick Negative (Negative); Specific Gravity, Urine 1.015 (1.002-1.030); Urine Bilirubin Dipstick Negative (Negative); Urine Clarity Clear (Clear); Urine Urobilinogen Normal (Normal)
[2018-11-08 16:36] LABS: Bacteria 1+ /hpf (None Seen); Squamous Epithelial Cells - UA 0-5 SEEN /hpf (5-10); White Blood Cells 0-5 SEEN /hpf (0-5)
== END ==
PROVIDERS: Family Provider Family Medicine; PCP Family Medicine; Visit Provider Family Medicine
DX: N39.0 Urinary tract infection, site not specified (principal); R41.0 Disorientation, unspecified
CPT/HCPCS: 81001; 87086; 87088

== ENCOUNTER → 2018-11-20 12:51 | Outpatient (CLI) | payer MEDICARE, OTHER, SELFPAY ==
[2018-08-10 16:56] VITALS: BMI 29.1
[2018-11-20 13:45] LABS: Erythrocyte Sedimentation Rate 8 mm/hr (0-30)
[2018-11-20 14:00] LABS: CRP 9.81 mg/L (0.0-3.0)
== END ==
PROVIDERS: Family Provider Family Medicine; PCP Family Medicine; Referring Provider Internal Medicine Rheumatology; Visit Provider Internal Medicine Rheumatology
DX: M31.6 Other giant cell arteritis (principal); Z85.3 Personal history of malignant neoplasm of breast; Z85.43 Personal history of malignant neoplasm of ovary; Z79.52 Long term (current) use of systemic steroids
CPT/HCPCS: 36415; 85652; 86140

== ENCOUNTER → 2019-01-21 11:48 | Outpatient (CLI) | payer MEDICARE, OTHER, SELFPAY ==
[2018-12-23 13:34] VITALS: BMI 29.5
[2019-01-21 13:14] LABS: Erythrocyte Sedimentation Rate 8 mm/hr (0-30)
[2019-01-21 13:35] LABS: CRP 7.43 mg/L (0.0-3.0)
== END ==
PROVIDERS: Family Provider Family Medicine; PCP Family Medicine; Referring Provider Internal Medicine Rheumatology; Visit Provider Internal Medicine Rheumatology
DX: M31.6 Other giant cell arteritis (principal); Z79.52 Long term (current) use of systemic steroids; Z85.3 Personal history of malignant neoplasm of breast; Z85.43 Personal history of malignant neoplasm of ovary
CPT/HCPCS: 36415; 85652; 86140

== ENCOUNTER → 2019-05-15 09:04 | Outpatient (CLI) | payer MEDICARE, OTHER, SELFPAY ==
[2018-12-23 13:34] VITALS: BMI 29.5
[2019-05-15 09:38] LABS: Erythrocyte Sedimentation Rate 16 mm/hr (0-30)
[2019-05-15 09:49] LABS: CRP 4.73 mg/L (0.0-3.0)
== END ==
PROVIDERS: Family Provider Family Medicine; PCP Family Medicine; Referring Provider Internal Medicine Rheumatology; Visit Provider Internal Medicine Rheumatology
DX: M31.6 Other giant cell arteritis (principal); Z79.52 Long term (current) use of systemic steroids; Z85.3 Personal history of malignant neoplasm of breast; Z85.43 Personal history of malignant neoplasm of ovary
CPT/HCPCS: 36415; 85652; 86140

== ENCOUNTER → 2019-07-22 09:51 | Outpatient (CLI) | payer MEDICARE, OTHER, SELFPAY ==
[2018-12-23 13:34] VITALS: BMI 29.5
--- NOTE | 2019-07-22 09:55 | BD_ITS ---
STUDY: DUAL ENERGY X-RAY ABSORPTIOMETRY / DXA REASON FOR EXAM: Female, 83 years old. The patient is postmenopausal. History of breast cancer. Loss of height. TECHNIQUE: Bone Mineral Density (BMD) measurements of lumbar spine and bilateral hips were obtained. COMPARISON: Comparison is made with prior study dated May 17, 2017. FINDINGS: Lumbar Spine (L1-L4): g/cm2 (1.448) / T-score (2.1) / Z-score (3.9) Findings are suggestive of normal bone density with a low fracture risk. Left Femur Total: g/cm2 (0.987) / T-score (-0.2) / Z-score (1.9) Left Femoral Neck: g/cm2 (0.926) / T-score (-0.8) / Z-score (1.4) Right Femur Total: g/cm2 (0.974) / T-score (-0.3) / Z-score (1.8) Right Femoral Neck: g/cm2 (0.939) / T-score (-0.7) / Z-score (1.5) The T-Scores on the most recent prior examination were: Lumbar Spine (L1-L4): There has been improvement of bone density since the previous examination. Left Femur Total: which represents an improvement of 2.4%. Right Femur Total: which represents an improvement of 1.9%. BD/Dexa Bone Density Study IMPRESSION: The patient is considered normal as outlined below according to World Nils Organization (WHO) criteria with a low fracture risk. There has been improvement of bone density since the previous examination. Reference Information: The T-score is the number of standard deviations above or below the standard which is normal for young adults at their peak bone mineral density. The World Health Organization (WHO) interprets the T-scores as follows: Above -1 Normal bone density Between -1 and -2.5 Osteopenia Equal to / or below -2.5 Osteoporosis As a practical clinical guideline, osteopenia may be graded as follows: Mild -1 through -1.5 Moderate -1.6 through -2.0 Severe -2.1 through -2.4 The Z-score is the number of standard deviations above or below age-matched controls. A Z-score of less than -1.5 would be considered abnormal. References: 1. NIH Osteoporosis and Related Bone Diseases http://www.osteo.org 2. International Society for Clinical Densitometry http://www.iscd.org 3. National Osteoporosis Foundation http://www.nof.org Electronically Signed: Calin Schuler, at 8:51 EST , Service support ,
== END ==
PROVIDERS: Family Provider Family Medicine; PCP Family Medicine; Referring Provider Internal Medicine Medical Oncology; Visit Provider Internal Medicine Medical Oncology
DX: M85.80 Other specified disorders of bone density and structure, unspecified site (principal); Z85.3 Personal history of malignant neoplasm of breast
CPT/HCPCS: 77080

== ENCOUNTER → 2019-11-05 11:29 | Outpatient (CLI) | payer MEDICARE, OTHER, SELFPAY ==
[2019-09-01 13:53] VITALS: BMI 29.5
[2019-11-05 12:27] LABS: Erythrocyte Sedimentation Rate 32 mm/hr (0-30)
== END ==
PROVIDERS: PCP Family Medicine; Referring Provider Internal Medicine Rheumatology; Visit Provider Internal Medicine Rheumatology
DX: M31.6 Other giant cell arteritis (principal); Z85.3 Personal history of malignant neoplasm of breast; Z85.43 Personal history of malignant neoplasm of ovary; Z79.52 Long term (current) use of systemic steroids
CPT/HCPCS: 36415; 85652; 86140

== ENCOUNTER 2019-12-03 11:11 | Outpatient (RCR) | payer MEDICARE, OTHER, SELFPAY ==
[2019-09-01 13:53] VITALS: BMI 29.5
[2019-12-03 12:16] LABS: International Normalized Ratio 2.3; Prothrombin Time (Protime)PT. 24.9 SECONDS (11.7-14.9)
== END 2019-12-25 18:00 | disposition home or self-care (01) ==
LOC: MTLAB 11:11
PROVIDERS: PCP Family Medicine; Referring Provider Family Medicine; Visit Provider Family Medicine
DX: I67.9 Cerebrovascular disease, unspecified (principal); Z86.711 Personal history of pulmonary embolism
CPT/HCPCS: 36415; 85610

== ENCOUNTER 2019-12-29 11:53 | Outpatient (RCR) | payer MEDICARE, OTHER, SELFPAY ==
[2019-09-01 13:53] VITALS: BMI 29.5
[2019-12-29 15:56] LABS: International Normalized Ratio 2.1
== END 2019-12-29 18:00 | disposition home or self-care (01) ==
LOC: MTLAB 11:53
PROVIDERS: PCP Family Medicine; Referring Provider Family Medicine; Visit Provider Family Medicine
DX: I67.9 Cerebrovascular disease, unspecified (principal); Z86.711 Personal history of pulmonary embolism
CPT/HCPCS: 36415; 85610

== ENCOUNTER → 2020-03-01 10:35 | Outpatient (CLI) | payer MEDICARE, OTHER, SELFPAY ==
[2019-09-01 13:53] VITALS: BMI 29.5
[2020-03-01 11:17] LABS: Erythrocyte Sedimentation Rate 109 mm/hr (0-30)
[2020-03-01 11:20] LABS: Absolute Lymphocyte Count 1.32 X10^3/uL (0.83-4.51); Absolute Neutrophil Count 3.4 X10^3/uL (2.0-7.7); Basophil# 0.03 X10^3/uL; Basophil% 0.6 % (0-1); Eosinophil# 0.17 X10^3/uL; Eosinophils% 3.2 % (0-5); Hematocrit 41.2 % (37-47); Hemoglobin 13.3 g/dL (12.0-15.0); Lymphocyte # 1.32 X10^3/ul (4.0); Lymphocyte % 24.5 % (19-41); Mean Corp Hgb Conc 32.3 g/dL (32-36); Mean Corpuscular Hgb 29.9 pg (27.0-32.0); Mean Corpuscular Volume 92.6 fL (81-99); Mean Platelet Vol. 9.2 fl (6.2-12.0); Monocyte# 0.47 X10^3/uL; Monocyte% 8.7 % (0-10); NRBC Flagged by Analyzer 0 % (0-5); Neutrophil # 3.37 X10^3/uL (2.7-7.7); Neutrophil % 62.4 % (47-70); Platelet Count 215 K/mm3 (150-450); RBC Distribution Width CV 14.1 % (11.6-14.6); RBC Distribution Width SD 47.5 fl (35.1-43.9); Red Blood Count 4.45 M/mm3 (4.2-5.4); White Blood Count 5.4 K/mm3 (4.4-11.0)
[2020-03-01 11:37] LABS: ALB/GLOB Ratio 1.1 RATIO (0.9-2.4); AST(SGOT) 16 U/L (15-37); Alanine Aminotransfer ALT/SGPT 14 U/L (13-56); Albumin, Serum 3.3 g/dL (3.2-5.0); Alkaline Phosphatase 98 U/L (45-117); Anion Gap 5 (5-15); BUN 19 mg/dL (7-18); BUN/Creat Ratio 25.3 RATIO (10-20); CRP 4.82 mg/L (0.0-3.0); Calcium,Total 8.7 mg/dL (8.5-10.1); Chloride 109 mmol/L (98-107); Creatinine, Serum 0.75 mg/dL (0.55-1.02); EST Glomerular Filtration Rate 78 mL/min (>60); Est Glom Filt Rate - Afr Amer 95 mL/min (>60); Glucose 103 mg/dL (74-106); LDH 183 U/L (84-246); Magnesium 2.1 mg/dL (1.6-2.6); Potassium 4.3 mmol/L (3.5-5.1); Protein, Total 6.3 g/dL (6.4-8.2); Sodium Level 142 mmol/L (136-145)
[2020-03-01 19:12] LABS: Xtra Tube EP Lab EXTRA TUBE
== END ==
PROVIDERS: Internal Medicine Medical Oncology; PCP Family Medicine; Referring Provider Internal Medicine Rheumatology; Visit Provider Internal Medicine Rheumatology
DX: M31.6 Other giant cell arteritis (principal); Z85.3 Personal history of malignant neoplasm of breast; Z85.43 Personal history of malignant neoplasm of ovary; Z79.52 Long term (current) use of systemic steroids
CPT/HCPCS: 80053; 83615; 83735; 84100; 85025; 85652; 86140

== ENCOUNTER 2020-03-05 13:33 | Outpatient (RCR) | payer MEDICARE, OTHER, SELFPAY ==
[2019-09-01 13:53] VITALS: BMI 29.5
[2020-03-01 11:18] VITALS: BMI 28.3
[2020-03-05 17:56] LABS: International Normalized Ratio 1.6; Prothrombin Time (Protime)PT. 18.9 SECONDS (11.7-14.9)
== END 2020-03-05 18:00 | disposition home or self-care (01) ==
LOC: MTLAB 13:33
PROVIDERS: PCP Family Medicine; Referring Provider Family Medicine; Visit Provider Family Medicine
DX: I67.9 Cerebrovascular disease, unspecified (principal); Z86.711 Personal history of pulmonary embolism
CPT/HCPCS: 36415; 85610

== ENCOUNTER → 2020-04-02 14:30 | Outpatient (CLI) | payer MEDICARE, OTHER, SELFPAY ==
[2020-03-01 11:18] VITALS: BMI 28.3
[2020-04-05 13:44] LABS: Giardia Lamblia, Stool EIA Negative (Negative)
== END ==
PROVIDERS: PCP Family Medicine; Visit Provider Family Medicine
DX: R19.7 Diarrhea, unspecified (principal)
CPT/HCPCS: 83630; 87329; 87493

== ENCOUNTER → 2020-04-14 10:18 | Outpatient (CLI) | payer MEDICARE, OTHER, SELFPAY ==
[2020-03-01 11:18] VITALS: BMI 28.3
[2020-04-14 13:40] LABS: Erythrocyte Sedimentation Rate 7 mm/hr (0-30)
== END ==
PROVIDERS: PCP Family Medicine; Referring Provider Internal Medicine Rheumatology; Visit Provider Internal Medicine Rheumatology
DX: M31.6 Other giant cell arteritis (principal); Z79.52 Long term (current) use of systemic steroids; Z85.3 Personal history of malignant neoplasm of breast; Z85.43 Personal history of malignant neoplasm of ovary
CPT/HCPCS: 36415; 85652; 86140

== ENCOUNTER 2020-05-28 12:15 | Outpatient (RCR) | payer MEDICARE, OTHER, SELFPAY ==
[2020-03-01 11:18] VITALS: BMI 28.3
[2020-05-28 16:27] LABS: International Normalized Ratio 2.1; Prothrombin Time (Protime)PT. 23.2 SECONDS (11.7-14.9)
== END 2020-05-28 18:00 | disposition home or self-care (01) ==
LOC: MTLAB 12:15
PROVIDERS: PCP Family Medicine; Referring Provider Family Medicine; Visit Provider Family Medicine
DX: I67.9 Cerebrovascular disease, unspecified (principal); Z86.711 Personal history of pulmonary embolism
CPT/HCPCS: 36415; 85610

== ENCOUNTER 2020-07-14 10:59 | Outpatient (RCR) | payer MEDICARE, OTHER, SELFPAY ==
[2020-03-01 11:18] VITALS: BMI 28.3
[2020-07-14 12:33] LABS: International Normalized Ratio 1.4; Prothrombin Time (Protime)PT. 16.3 SECONDS (11.7-14.9)
== END 2020-07-14 18:00 | disposition home or self-care (01) ==
LOC: MTLAB 10:59
PROVIDERS: PCP Family Medicine; Referring Provider Family Medicine; Visit Provider Family Medicine
DX: I67.9 Cerebrovascular disease, unspecified (principal); Z86.711 Personal history of pulmonary embolism
CPT/HCPCS: 36415; 85610

== ENCOUNTER 2020-08-16 14:12 | Outpatient (RCR) | payer MEDICARE, OTHER, SELFPAY ==
[2020-03-01 11:18] VITALS: BMI 28.3
[2020-08-16 14:31] LABS: Prothrombin Time Fingerstick 23.4 SEC (11.9-14.4)
== END 2020-08-16 18:00 | disposition home or self-care (01) ==
LOC: MTLAB 14:12
PROVIDERS: PCP Family Medicine; Referring Provider Family Medicine; Visit Provider Family Medicine
DX: I67.9 Cerebrovascular disease, unspecified (principal); Z86.711 Personal history of pulmonary embolism
CPT/HCPCS: 36416; 85610

== ENCOUNTER 2020-11-25 12:33 | Outpatient (RCR) | payer MEDICARE, OTHER, SELFPAY ==
[2020-08-25 13:26] VITALS: BMI 28.8
[2020-11-25 12:56] LABS: Prothrombin Time Fingerstick 32.7 SEC (11.9-14.4)
== END 2020-11-25 18:00 | disposition home or self-care (01) ==
LOC: MTLAB 12:33
PROVIDERS: PCP Family Medicine; Referring Provider Family Medicine; Visit Provider Family Medicine
DX: Z86.711 Personal history of pulmonary embolism (principal); Z79.01 Long term (current) use of anticoagulants
CPT/HCPCS: 36416; 85610

== ENCOUNTER → 2020-12-08 13:45 | Outpatient (CLI) | payer MEDICARE, OTHER, SELFPAY ==
--- NOTE | 2020-12-08 13:48 | RAD_ITS ---
STUDY: X-RAY - PELVIS AND RIGHT HIP REASON FOR EXAM: Female, 85 years old. FALL TECHNIQUE: 3 views of the pelvis and hip. COMPARISON: 08/25/2020 FINDINGS: There is a non-specific bowel gas pattern. Normal visualized soft tissue structures. Normal bilateral iliac wings, sacroiliac joints and visualized sacrum. Normal bilateral superior and inferior pubic rami. Normal pubic symphysis. Normal bilateral ischial tuberosities. Mixed sclerosis and radiolucency of the femoral head worrisome for avascular necrosis. Possible mild collapse. MRI would be useful. There is osteoarthritic spur formation of the acetabular rim. There is moderate articular joint space narrowing of the hip. RAD/HIP, UNI W/ Pelvis 2-3 Views IMPRESSION: Moderate arthrosis and possible avascular necrosis with mild collapse. MRI would be useful. Electronically Signed: Bora Pina MD at 16:19 EDT Tel , Service support ,
--- NOTE | 2020-12-08 13:50 | RAD_ITS ---
STUDY: X-RAY - LUMBAR SPINE REASON FOR EXAM: Female, 85 years old. FALL TECHNIQUE: 3 view(s) of the lumbar spine were obtained. COMPARISON: 08/30/2020 FINDINGS: Normal lumbar lordosis. There is a levoscoliosis of the lumbar spine. There is a normal alignment of the vertebrae. There is multilevel endplate spondylosis of the lumbar vertebrae. There is multi-level degenerative disc disease with multi-level disc space narrowing. The soft tissue structures are unremarkable. RAD/Lumbar Spine 2 or 3 Views IMPRESSION: Mild levoscoliosis with moderate diffuse degenerative disc disease. MRI may be useful. Electronically Signed: Bora Pina MD at 14:22 EDT Tel , Service support ,
== END ==
PROVIDERS: PCP Family Medicine; Referring Provider Anesthesiology Pain Medicine; Visit Provider Anesthesiology Pain Medicine
DX: Z04.3 Encounter for examination and observation following other accident (principal); M51.36 Other intervertebral disc degeneration, lumbar region; M48.061 Spinal stenosis, lumbar region without neurogenic claudication; M16.11 Unilateral primary osteoarthritis, right hip
CPT/HCPCS: 72100; 73502

== ENCOUNTER → 2021-01-26 14:49 | Outpatient (CLI) | payer MEDICARE, OTHER, SELFPAY ==
--- NOTE | 2021-01-26 15:05 | RAD_ITS ---
STUDY: X-RAY - PELVIS AND RIGHT HIP REASON FOR EXAM: Female, 85 years old. Hip pain. TECHNIQUE: 3 views of the pelvis and hip. COMPARISON: 08/25/2020. FINDINGS: There is a non-specific bowel gas pattern. Multiple clips in the pelvis unchanged. Generalized osteopenia. Normal bilateral iliac wings, sacroiliac joints and visualized sacrum. Normal bilateral superior and inferior pubic rami. Stable moderate arthrosis of the symphysis pubis. Normal bilateral ischial tuberosities. 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 Moderate osteoarthritic change of the left hip unaltered. 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 No acute finding. Electronically Signed: Russell Mcgrath MD at 9:54 EDT , Service support ,
== END ==
PROVIDERS: PCP Family Medicine; Referring Provider Anesthesiology Pain Medicine; Visit Provider Anesthesiology Pain Medicine
DX: M85.851 Other specified disorders of bone density and structure, right thigh (principal)
CPT/HCPCS: 73502

== ENCOUNTER → 2021-03-07 13:34 | Outpatient (CLI) | payer MEDICARE, OTHER, SELFPAY ==
[2021-03-07 16:16] LABS: Color, Urine Yellow (Yellow); Glucose, Dipstick Normal (Normal); Ketone-Dipstick Negative (Negative); Leukocyte Esterase-Dipstick Negative /ul (Negative); Nitrite-Dipstick Negative (Negative); Occult Blood-Urine Negative /ul (Negative); Protein-Dipstick Negative (Negative); Urine Bilirubin Dipstick Negative (Negative); Urine Clarity Clear (Clear); Urine Urobilinogen Normal (Normal)
== END ==
PROVIDERS: PCP Family Medicine; Referring Provider Family Medicine; Visit Provider Family Medicine
DX: R41.0 Disorientation, unspecified (principal)
CPT/HCPCS: 81002; 87077; 87086; 87088; 87186

== ENCOUNTER 2021-03-08 15:55 | Emergency (ER) | payer MEDICARE, OTHER, SELFPAY ==
[2021-03-08 15:56] VITALS: BP 108/55; PULSE 73; RESP 18; TEMP 36.7; O2SAT 97; BMI 27.4
--- NOTE | 2021-03-08 16:37 | EKG12_ITS ---
Test Reason : WEAKNESS Blood Pressure : / mmHG Vent. Rate : 063 BPM Atrial Rate : 063 BPM P-R Int : 144 ms QRS Dur : 072 ms QT Int : 416 ms P-R-T Axes : 017 -30 030 degrees QTc Int : 425 ms Normal sinus rhythm Left axis deviation Abnormal ECG Confirmed by TRISTIN ANAYA, [place] ([id number]), newspaper photo editor GENOVEVA DOLL ([id number]) on 03/09/2021 11:56:08 AM Referred By: SHANE Confirmed By:AC CROW MD
--- NOTE | 2021-03-08 16:37 | RAD_ITS ---
STUDY: X-RAY - RIGHT FEMUR REASON FOR STUDY: Female, 85 years old. pain TECHNIQUE: 2 view(s) of the femur. COMPARISON: None. FINDINGS: No acute fracture or dislocation. Severe degenerative changes of the right hip. Complete loss of joint space. Prominent subchondral cysts. Flattening of the femoral head. Normal femoral shaft. Total knee arthroplasty components in grossly satisfactory positions. Grossly normal soft tissues. RAD/Femur Min 2 Views IMPRESSION: No acute fracture or dislocation. 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 Electronically Signed: Jung Guerrero MD at 17:29 EDT , Service support ,
--- NOTE | 2021-03-08 16:37 | RAD_ITS ---
STUDY: X-RAY - PELVIS REASON FOR EXAM: Female, 85 years old. fall and pain TECHNIQUE: One view of the pelvis was obtained. COMPARISON: None. FINDINGS: There is a non-specific bowel gas pattern. Normal visualized soft tissue structures. Normal bilateral iliac wings, sacroiliac joints and visualized sacrum. Normal visualized bilateral superior and inferior pubic rami. There are degenerative changes of the pubic symphysis with articular narrowing and sclerosis. Normal ischial tuberosities. Mild degenerative changes of the right hip, probably with AVN and collapse and flattening of the humeral head. Complete loss of the joint space. There are osteoarthritic changes of the left femoral head with marginal osteophyte formation. There is osteoarthritic spur formation of the left acetabular rim. There is mild articular joint space narrowing of the left hip. RAD/Pelvis 1 or 2 Views IMPRESSION: No acute fracture or dislocation. 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 Electronically Signed: Jung Guerrero MD at 17:31 EDT , Service support ,
[2021-03-08 16:42] VITALS: BP 129/68; PULSE 65; RESP 16; O2SAT 96
--- NOTE | 2021-03-08 16:44 | EX.ED.DYSGE1 ---
HPI History of Present Illness Chief Complaint: Weakness Informant: patient and family Onset/Context/Timing Onset: Days Timing: Intermittent Current Severity: Mild Maximum Severity: Mild Narrative Narrative: 85-year-old female history of prior polio on Coumadin for prior PE. And had a history of prior breast cancer for which she had mastectomies. She is reportedly had 3 falls in the last 4 days. Just feels weak all over. Difficulty walking due to weakness. Denies any head injury. Denies any headache. Denies any nausea, vomiting or diarrhea or recent illness. Prior similar symptoms: No Recent Illness/Hospitalization: No [facility] Medical History Fall Pulmonary embolism Temporal arteritis Home Medications calcium carbonate-vitamin D3 [Oyster Shell Calcium-Vit D3] 1 ea PO BID 02/09/16 [History Last Taken Unknown] rivastigmine tartrate [Exelon] 3 mg PO BID 05/20/16 [History Last Taken Unknown] warfarin [Jantoven] 2 mg PO SUMOWEFRSA 04/24/17 [History Last Taken Unknown] aspirin 81 mg PO DAILY@0800 08/10/18 [History Last Taken Unknown] atorvastatin 20 mg PO QHS 08/10/18 [History Last Taken Unknown] carvedilol 3.125 mg PO BID 08/10/18 [History Last Taken Unknown] mirtazapine 15 mg PO QHS 08/10/18 [History Last Taken Unknown] warfar[facility] [[facility]oven] [facility] 08/10/18 [History Last Taken Unknown] prednisone 1 mg PO DAILY 12/23/18 [History Last Taken Unknown] oxybutynin chloride 5 mg PO DAILY 03/08/21 [History Last Taken Unknown] sertraline 100 mg PO DAILY 03/08/21 [History Last Taken Unknown] Allergy/AdvReac Type Severity Reaction Status Date / Time No Known Allergies Allergy Verified 03/08/21 15:58 Surgical History H/O cataract extraction H/O mastectomy History of hysterectomy History of knee replacement Social History Smoking Status: Never smoker ROS ROS ED ROS Narrative Denies recent illness. Review of Systems ROS Unobtainable: Denies due to encephalopathy Constitutional Constitutional ED: Denies chills or fever(s) Eyes Eyes: Denies change in vision ENT ENT ED: Denies ear pain or sore throat Cardiovascular Cardiovascular: Denies chest pain or palpitations Respiratory/Chest Respiratory/Chest: Denies cough or dyspnea Gastrointestinal Gastrointestinal: Denies abdominal pain, diarrhea, nausea or vomiting Genitourinary Genitourinary ED: Denies dysuria or hematuria Musculoskeletal Musculoskeletal: Denies myalgias Integumentary Denies rash Neurologic Neurologic: Denies headache(s) Psychiatric Psychiatric: Denies depression Endocrine Endocrinology: Denies polyuria Allergic/Immunologic Allergic/Immunologic ED: Denies urticaria EXAM Physical Exam Narrative Exam Narrative: Elderly female no acute distress. Vital signs stable afebrile initial blood pressure 108/55. Pulse ox 97% room air no hypoxia. HEENT exam unremarkable atraumatic. Pupils round reactive light. No trauma to her scalp or face nontender. Neck nontender no lymphadenopathy. Lungs clear to auscultation. Heart regular rhythm no murmur. Chest wall nontender. Abdomen soft nontender normal bowel sounds no peritoneal signs. Pelvic girdle intact. Mild tenderness right proximal femur. Moving all 4 extremities. She has limited range of motion of the right knee states that is chronic. Back nontender. C-spine, T-spine L-spine nontender. Neurologically she is awake alert. Has weakness in the right lower extremity which is old. Otherwise unremarkable exam. Const Vital Signs: 03/08/21 15:56 03/08/21 16:42 03/08/21 16:49 Temperature 98.1 F Temperature Source Temporal Pulse Rate 73 65 Respiratory Rate 18 16 Respiratory Effort Normal Respiratory Pattern Normal Blood Pressure 108/55 L 129/68 H Blood Pressure Mean 72 88 Pulse Ox 97 96 Oxygen Delivery Method Room Air Room Air 03/08/21 18:55 03/08/21 19:36 Temperature Temperature Source Pulse Rate 68 71 Respiratory Rate 15 18 Respiratory Effort Respiratory Pattern Blood Pressure 172/81 H 169/83 H Blood Pressure Mean 111 Pulse Ox 96 97 Oxygen Delivery Method Room Air Positive well nourished and well developed General Appearance ED: well developed HEENT Reports moist mucous membranes Negative for trauma or tenderness Eyes PERRL and EOMs intact bilaterally Neck no lymphadenopathy, supple and no JVD General: Negative for tenderness Chest Wall inspection of chest normal and palpation of chest normal Resp normal respiratory effort and clear to auscultation bilaterally Cardio regular rate, regular rhythm, S1 normal heart sound, S2 normal heart sound and no murmurs GI normal to inspection, nondistended, normoactive bowel sounds, non-tender, non-distended and no masses Inspection: Negative for abdominal distention Auscultation: normoactive bowel sounds Palpation: soft; Negative for tender, guarding or rebound tenderness present Back/Spine no CVA tenderness Cervical Spine: Negative for cervical spine tenderness Thoracic Spine / Upper Back: Negative for thoracic spinal tenderness or paraspinal muscle tenderness Lumbar Spine / Lower Back: Negative for lumbar spinal tenderness Extremity normal to inspection Extremity Narrative: Tenderness right medial proximal femur. No deformity. Decreased range of motion to the right lower extremity. Patient states old not acute. General Extremety ED: Yes tenderness; Negative for edema General Extremity: Negative for edema Neuro oriented x3 and CN's II-XII intact bilaterally Neuro Narrative: Weakness right lower extremity. Old. Sensorium / Orientation: alert; Negative for lethargic or stuporous MDM MDM MDM Narrative Medical decision making narrative: Only female complaining of frequent falls. Generalized weakness. And has pain in her proximal femur. X-rays and labs are being obtained. Repeat exam patient doing well at 8:10 PM. She and her family are comfortable with her being discharged home. She lives with her daughter and daughter is comfortable taking care of her at home. Lab Data Attestation: I reviewed the patient's lab results. Lab results narrative: CBC unremarkable white count of 7. Hemoglobin 13. Electrolytes unremarkable gap of 4 creatinine 1.98. Liver enzymes unremarkable. Urinalysis normal. No signs of infection. Labs: Laboratory Results - last 24 hr 03/08/21 03/08/21 03/08/21 16:30 16:30 18:10 WBC 7.2 RBC 4.33 Hgb 13.4 Hct 40.3 MCV 93.1 MCH 30.9 MCHC 33.3 RDW Std Deviation 46.0 H RDW Coeff of Shashank 13.5 Plt Count 242 MPV 9.4 Immature Gran % (Auto) 0.600 Neut % (Auto) 74.0 H Lymph % (Auto) 15.9 L [place] % (Auto) 8.1 Eos % (Auto) 1.1 Baso % (Auto) 0.3 Absolute Neuts (auto) 5.3 Absolute Lymphs (auto) 1.14 Nucleated RBC % 0 Sodium 143 Potassium 4.0 Chloride 111 H Carbon Dioxide 28.0 Anion Gap 4 L BUN 18 Creatinine 0.98 Estim Creat Clear Calc 37.56 Est GFR (MDRD) Af Amer 70 Est GFR (MDRD) Non-Af 58 L BUN/Creatinine Ratio 18.3 Glucose 138 H Calcium 9.0 Total Bilirubin 0.40 AST 26 ALT 26 Alkaline Phosphatase 114 Total Protein 6.2 L Albumin 3.5 Globulin 2.7 Albumin/Globulin Ratio 1.3 Urine Color Yellow Urine Clarity Sl. Cloudy Urine pH 8.0 Ur Specific [place] 1.015 Urine Protein Negative Urine Glucose (UA) Normal Urine Ketones Negative Urine Occult Blood Negative Urine Nitrite Negative Urine Bilirubin Negative Urine Urobilinogen Normal Ur Leukocyte Esterase Negative Urine RBC 0 SEEN Urine WBC 0 SEEN Ur Squamous Epith Cells 0 SEEN Amorphous Sediment 2+ Urine Bacteria 0 SEEN Urine Mucus 0 SEEN Radiography Chest X-Ray - ED: 1 View, Read by ED Physician, Read by Radiologist, Heart, Lungs, Mediastinum, Bony Structures, No Acute Disease and Chronic Changes Diagnostic Testing: Radiology Impression Femur X-Ray 03/08/21 16:37 IMPRESSION: No acute fracture or dislocation. 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 Electronically Signed: Jung Guerrero MD at 17:29 EDT , Service support , Pelvis X-Ray 03/08/21 16:37 IMPRESSION: No acute fracture or dislocation. 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 Electronically Signed: Jung Guerrero MD at 17:31 EDT , Service support , Chest X-Ray 03/08/21 17:00 IMPRESSION: No definite acute or significant abnormality seen. Electronically Signed: Jung Guerrero MD at 17:28 EDT , Service support , Pelvis x-ray showed significant degenerative arthritis of the right hip but no fracture or dislocation. Also the right femur the same arthritis of the right hip but no fracture dislocation 2 views both interpreted by myself along with a chest x-ray. Also read and agree with the radiologist interpretation also. Discharge Plan Triage Chief Complaint: Weakness ED Provider: Wade Amin Dx/Rx/DC Orders Clinical Impression: Falls, Weakness Instructions: ED Weakness (Uncertain Cause) Prescriptions: No Action calcium carbonate-vitamin D3 [Oyster Shell Calcium-Vit D3] 1 EACH tablet 1 ea PO BID RF: 0 rivastigmine tartrate [Exelon] 3 MG capsule 3 mg PO BID RF: 0 warfarin [Jantoven] 2 MG tablet 2 mg PO SUMOWEFRSA RF: 0 prednisone 1 MG tablet 1 mg PO DAILY RF: 0 warfarin [Jantoven] 4 MG tablet 4 mg PO TUTH RF: 0 mirtazapine 15 MG tablet 15 mg PO QHS RF: 0 atorvastatin 20 MG tablet 20 mg PO QHS RF: 0 carvedilol 3.125 MG tablet 3.125 mg PO BID RF: 0 aspirin 81 MG tablet,chewable 81 mg PO DAILY@0800 RF: 0 sertraline 100 mg Tablet 100 mg PO DAILY RF: 0 oxybutynin chloride 5 mg Tablet 5 mg PO DAILY RF: 0 Primary Care Provider: Mayank Haq Referrals: Mayank Haq DO [Primary Care Provider] - 1 Week if not improving Activity Restrictions/Additional Instructions: Follow-up with your doctor as needed. Return if worse. Your labs tonight were unremarkable. Your x-ray showed severe arthritis to your right hip but nothing broken or dislocated. Disposition Disposition: Home, Self Care
--- NOTE | 2021-03-08 17:00 | RAD_ITS ---
STUDY: X-RAY CHEST REASON FOR EXAM: Female, 85 years old. weakness TECHNIQUE: Single AP portable view of the chest. COMPARISON: 08/10/2018. FINDINGS: The lungs are clear and expanded. There is no demonstrated pleural abnormality. Normal size heart. Normal mediastinum and kerry. Normal visualized pulmonary arteries. Normal visualized aortic arch and descending thoracic aorta. There are diffuse degenerative changes of the visualized thoracic spine. There is degenerative osteoarthritis of the bilateral shoulders. There is no demonstrated abnormality of the visualized soft tissue structures of the upper abdomen. RAD/Chest 1 View (Portable) IMPRESSION: No definite acute or significant abnormality seen. Electronically Signed: Jung Guerrero MD at 17:28 EDT , Service support ,
[2021-03-08 17:12] LABS: Absolute Lymphocyte Count 1.14 X10^3/uL (0.83-4.51); Absolute Neutrophil Count 5.3 X10^3/uL (2.0-7.7); Basophil# 0.02 X10^3/uL; Basophil% 0.3 % (0-1); Eosinophil# 0.08 X10^3/uL; Eosinophils% 1.1 % (0-5); Hematocrit 40.3 % (37-47); Hemoglobin 13.4 g/dL (12.0-15.0); Lymphocyte # 1.14 X10^3/ul (0.83-4.51); Lymphocyte % 15.9 % (19-41); Mean Corp Hgb Conc 33.3 g/dL (32-36); Mean Corpuscular Hgb 30.9 pg (27.0-32.0); Mean Corpuscular Volume 93.1 fL (81-99); Mean Platelet Vol. 9.4 fl (6.2-12.0); Monocyte# 0.58 X10^3/uL; Monocyte% 8.1 % (0-10); NRBC Flagged by Analyzer 0 % (0-5); Neutrophil # 5.32 X10^3/uL (2.7-7.7); Platelet Count 242 K/mm3 (150-450); RBC Distribution Width CV 13.5 % (11.6-14.6); Red Blood Count 4.33 M/mm3 (4.2-5.4); White Blood Count 7.2 K/mm3 (4.4-11.0)
[2021-03-08 17:13] LABS: POSITIVE COUNT NO; POSITIVE DIFFERENTIAL NO; POSITIVE MORPHOLOGY NO
[2021-03-08 17:21] LABS: ALB/GLOB Ratio 1.3 RATIO (0.9-2.4); AST(SGOT) 26 U/L (15-37); Alanine Aminotransfer ALT/SGPT 26 U/L (13-56); Albumin, Serum 3.5 g/dL (3.2-5.0); Alkaline Phosphatase 114 U/L (45-117); Anion Gap 4 (5-15); BUN 18 mg/dL (7-18); BUN/Creat Ratio 18.3 RATIO (10-20); Chloride 111 mmol/L (98-107); Creatinine, Serum 0.98 mg/dL (0.55-1.02); EST Glomerular Filtration Rate 58 mL/min (>60); Est Glom Filt Rate - Afr Amer 70 mL/min (>60); Estimated Creatinine Clearance 37.56 ml/min; Globulin 2.7 g/dL (2.2-4.2); Glucose 138 mg/dL (74-106); Protein, Total 6.2 g/dL (6.4-8.2); Sodium Level 143 mmol/L (136-145)
[2021-03-08] MEDS: 0.9% Normal Saline 1,000 ML 1000 ML IV (17:45)
[2021-03-08 18:17] LABS: Bacteria 0 SEEN /hpf (None Seen); Mucous, Urine 0 SEEN /hpf (<or=2+); Red Blood Cells-Urine 0 SEEN /hpf (0-5); Squamous Epithelial Cells - UA 0 SEEN /hpf (5-10); White Blood Cells 0 SEEN /hpf (0-5)
[2021-03-08 18:29] LABS: Color, Urine Yellow (Yellow); Glucose, Dipstick Normal (Normal); Ketone-Dipstick Negative (Negative); Leukocyte Esterase-Dipstick Negative /ul (Negative); Nitrite-Dipstick Negative (Negative); Occult Blood-Urine Negative /ul (Negative); Protein-Dipstick Negative (Negative); Specific Gravity, Urine 1.015 (1.002-1.030); Urine Bilirubin Dipstick Negative (Negative); Urine Clarity Sl. Cloudy (Clear); Urine Urobilinogen Normal (Normal)
[2021-03-08 18:48] LABS: Amorphous Sediment 2+
[2021-03-08 18:55] VITALS: BP 172/81; PULSE 68; RESP 15; O2SAT 96
[2021-03-08 19:36] VITALS: BP 169/83; PULSE 71; RESP 18; O2SAT 97
== END 2021-03-08 20:24 | disposition home or self-care (01) ==
PROVIDERS: Emergency Provider Emergency Medicine; PCP Family Medicine
DX: R53.1 Weakness (principal); Z79.01 Long term (current) use of anticoagulants; Z85.3 Personal history of malignant neoplasm of breast; Z79.82 Long term (current) use of aspirin; Z86.711 Personal history of pulmonary embolism
CPT/HCPCS: 71045; 72170; 73552; 80053; 81001; 85025; 93005; 99283; J7030; A4216

== ENCOUNTER 2021-04-04 15:28 | Observation (INO) | payer MEDICARE, OTHER, SELFPAY ==
[2021-03-28 15:38] LABS: Hemoglobin A1c 5.3 % (3.8-5.6)
[2021-03-28 15:51] LABS: Magnesium 1.9 mg/dL (1.6-2.6)
[2021-04-04] VITALS (14 sets, daily range): BP systolic 100–149; BP diastolic 42–79; PULSE 55–90; RESP 16–18; TEMP 36.2–37; O2SAT 93–100; BMI 32.1
[2021-04-04 08:10] LABS: INR Fingerstick 1.3; Prothrombin Time Fingerstick 15.2 SEC (11.9-14.4)
[2021-04-04] MEDS: Acetaminophen 500 MG Tablet 1000 MG PO ×3 (08:40→21:30)
[2021-04-04] MEDS: Gabapentin 600 MG Tablet PO (08:41)
[2021-04-04] MEDS: Lactated Ringers 1,000 ML 100 ML IV ×2 (08:42→17:45)
[2021-04-04] MEDS: Cefazolin 2 GM in 0.9% Normal Saline 100 ML IV (09:43)
--- NOTE | 2021-04-04 10:00 | FEM_PTH ---
PATIENT: ELSI DOMINGUEZ LOC: [facility]3 U#:[id number] AGE/SX: 85/F ROOM: [facility] [place]/04/[address]: Dr. Ernesto Levy DO : 1935 BED: 1 DIS: 04/05/2021 SPEC #: [id number] RECD: 04/04/21 11:34 STATUS: ROSELYN REKai #: [id number] YAJAIRA: 04/04/21 10:[address]: Ernesto Levy DEPT: SURGICAL PATHOLOGY RECD BY: Evelyn Vegas ENTERED: 04/04/21 13:49 SP TYPE: FEM HEAD OTHR DR: Dr. Mayank Haq DO Tissues: Femoral region, NOS Procedures: Decalcification bone/plaque Surgery Specimen Level V HEADER OPERATION: ERAS, total hip replacement PRE-OP DIAGNOSIS: Osteoarthritis right hip TISSUE SUBMITTED: Bone and tissue right hip MICROSCOPIC DIAGNOSIS Right hip bone and tissue, total hip replacement/resection: Femoral head with degenerative osteoarthritic changes. Fragments of dense fibroconnective tissue with reactive changes. SJ:antonio 04/07/2021 MICROSCOPIC DESCRIPTION Slides are reviewed. GROSS DESCRIPTION Received is one container labeled with the patient's name and designated bone and tissue right hip. The specimen consists of a ruth femoral head measuring 5.5 x 4.8 x 4.6 cm. The articular surface displays prominent osteophyte formation, eburnation and bone erosion. Also present in the specimen container are multiple irregular fragments of gritty tissue and soft tissue measuring in aggregate 2 x 2 x 1 cm. [employer] sections are submitted in two cassettes as follows: 1 - bone after decalcification, 2??soft tissue. / AM:antonio 04/04/21 TC:5 [facility]: [id number]
[2021-04-04 10:11] LABS: Bedside Glucose 186 mg/dL (70-110)
[2021-04-04] MEDS: Lactated Ringers 1,000 ML 125 ML IV (11:42)
--- NOTE | 2021-04-04 11:53 | PCM.OPRPT ---
Report of Operation Date of Procedure: 04/04/21 Pre-Operative Diagnosis: OA right hip Post-Operative Diagnosis: same Surgery/Procedure Performed:: Right THR Description of Surgical Findings:: Report of Operation Date of Procedure: 04/04/21 Pre-Operative Diagnosis: OA [ right ] hip Post-Operative Diagnosis: same Surgery/Procedure Performed: [Right ] THR online publisher: Rusesll Ramsey PA-C Type of Anesthesia: spinal Anesthesiologist: Vicente Patel M.D. Specimen's removed: bone Estimated Blood Loss (100 mL): Implants: Vik Accolade 2 stem, 52 mm cup, -2.7 neck, MDM liner Surgical Indications: Patient has severe end-stage osteoarthritic changes in the [ right ] hip. They have failed conservative measures including activity modification, anti-inflammatories, use of assistive devices. This to the point where the pain affects their ability to enjoy life and complete activities of daily living without discomfort. Patient has elected to undergo the above procedure Procedure Description: The patient was greeted in the preoperative area the [ right ] hip was marked with surgical marker preoperative antibiotics administered. The patient was then taken to or suite in stable condition. Preoperative tranexamic acid was also utilized. Once the patient was placed in the supine position on the operating room table and once adequate anesthesia was obtained they were then placed in the lateral decubitus position with the surgical hip facing the field. All bony prominences were well-padded. A commercial hip position was utilized. The appropriate extremity was then prepped and draped in usual sterile fashion. Ioban was placed on the skin. Surgical timeout was performed and surgery was commenced. A standard posterior approach to the hip was then performed. Incision was planned and carried out with a #10 blade scalpel. Dissection was then carried length of the incision to the IT band which was split proximally and distally. A Charnley retractor was then placed for soft tissue retraction exposing the piriformis. A standard posterior capsulotomy was performed. Severe eburnation of bone was noted and periarticular osteophytes were identified consistent with severe end-stage osteoarthritis. A femoral neck osteotomy guide was used to jo the proximal femur. A femoral osteotomy was then created approximately 1 fingerbreadth above the lesser trochanter. This was measured and placed on the back table. Once this was complete acetabular retractors were placed anteriorly and posteriorly. Labrum was then removed from the acetabulum exposing the entire cup of the acetabulum. Sequential reaming was then commenced and the acetabulum was medialized and sequentially widened in order to accommodate appropriate size cup. The acetabular cup was then impacted into position to the appropriate depth referencing approximately [ 45 ] anteversion and [45 ]of inclination. Excellent purchase was obtained. An appropriate size MDM liner was then placed. Attention was then turned to the femoral preparation. The hip was placed in the 90/90 position and a lateralizing box osteotome was utilized. Femoral starting awl was used followed by sequential broaching to the appropriate size. Excellent purchase was obtained with the stem no stem subsidence and excellent rotational stability was confirmed. A calcar reamer was then used in the trial head neck was placed on the broach. The hip was then located and taken through full range of motion flexion internal and external rotation as well as extension. Excellent stability was noted no impingement was identified of the components and leg lengths appear to be appropriate. The hip was at this point dislocated and the trial femoral components were removed. The final femoral stem was then implanted and impacted to the appropriate depth. Again excellent purchase was obtained no stem subsidence or rotational instability was noted. The hip was once again trialed and confirmation of leg length and stability was performed. Soft tissue tension also appeared to be appropriate. At this point the hip was redislocated and the trunnion was cleaned and dried meticulously in the appropriate size MDM femoral head was placed on the clean dry trunnion using a 12/14 Graham taper. The hip was once again relocated and again taken through full range of motion. I did inject a cocktail of postoperative pain medication in the deep and superficial tissues. Copious irrigation was performed. Anatomic closure of the piriformis tendon was performed through drill holes in the greater trochanter. A #1 Vicryl 0 Vicryl was utilized in subcutaneous tissue and surgical william were placed in the skin. A well-padded nonadherent dressing was applied. Patient was taken to PACU in stable condition. No complications were identified. Will follow standard postop protocol for total hip arthroplasty. My community relations assistant played a vital role in the procedure beginning with positioning, holding retraction of soft tissues, positioning the leg to optimize visualization during the procedure and assisting with wound closure. Post-op Plan: DVT ppx; ASA 81 mg BID, thigh high compression stockings Follow up: in office in 2 weeks for wound check PT: to start POD #0 at hospital, outpatient PT should be arranged. Preoperative antibiotic: Ancef 2 grams IV Ernesto Levy DO Surgeon: Ernesto Levy online publisher: Russell Ramsey Type of Anesthesia: Spinal Anesthesiologist: Vicente Patel Specimen's removed: femoral head Drains: none Estimated Blood Loss (mL): 100 cc Admit VTE Documentation VTE Present on Admission: No VTE Mechan Device Prophylaxis: SCD's and Thigh High GIGI Hose VTE Pharm Prophylaxis ordered?: Yes
--- NOTE | 2021-04-04 12:07 | RAD_ITS ---
STUDY: X-RAY - PELVIS AND RIGHT HIP REASON FOR EXAM: Postoperative evaluation of right hip arthroplasty. TECHNIQUE: 2 views of the pelvis and hip. COMPARISON: Radiographs 03/08/2021. FINDINGS: There is postoperative gas in the soft tissues and overlying skin william. Normal bilateral superior and inferior pubic rami. There are degenerative changes of the pubic symphysis. Normal bilateral ischial tuberosities. There is a right hip arthroplasty without evidence of complication. RAD/Hip Min 2 Views (Portable) IMPRESSION: Uncomplicated right hip arthroplasty. Electronically Signed: Enrie Aguiar MD at 13:00 EDT Tel , Service support ,
[2021-04-04] MEDS: Cefazolin 1 GM/50 ML BAG IV (17:33)
[2021-04-04] MEDS: Aspirin 81 MG TAB.CHEW PO (17:33)
[2021-04-04] MEDS: Senna/Docusate Sodium 1 Tablet 2 TABLET PO (21:30)
[2021-04-05 02:16] VITALS: BP 112/41; PULSE 67; RESP 18; TEMP 36.4; O2SAT 92
[2021-04-05] MEDS: Cefazolin 1 GM/50 ML BAG IV (02:26)
[2021-04-05] MEDS: Acetaminophen 500 MG Tablet 1000 MG PO ×2 (05:45→14:11)
[2021-04-05 06:23] LABS: Hematocrit 36.1 % (37-47); Hemoglobin 11.6 g/dL (12.0-15.0); Mean Corp Hgb Conc 32.1 g/dL (32-36); Mean Corpuscular Hgb 30.4 pg (27.0-32.0); Mean Corpuscular Volume 94.8 fL (81-99); Mean Platelet Vol. 9.2 fl (6.2-12.0); Platelet Count 200 K/mm3 (150-450); RBC Distribution Width CV 13.2 % (11.6-14.6); RBC Distribution Width SD 45.2 fl (35.1-43.9); Red Blood Count 3.81 M/mm3 (4.2-5.4); White Blood Count 12.2 K/mm3 (4.4-11.0)
[2021-04-05 06:48] LABS: Anion Gap 5 (5-15); BUN 15 mg/dL (7-18); BUN/Creat Ratio 25.6 RATIO (10-20); Calcium,Total 8.8 mg/dL (8.5-10.1); Chloride 112 mmol/L (98-107); Creatinine, Serum 0.59 mg/dL (0.55-1.02); EST Glomerular Filtration Rate 104 mL/min (>60); Est Glom Filt Rate - Afr Amer 126 mL/min (>60); Estimated Creatinine Clearance 35.26 ml/min; Glucose 118 mg/dL (74-106); Potassium 4.3 mmol/L (3.5-5.1); Sodium Level 142 mmol/L (136-145)
--- NOTE | 2021-04-05 07:03 | PCM.PN.ORT ---
Subjective Subjective Patient sitting at bedside. Patient states pain is been very well managed. Patient denies chest pain, shortness of breath, calf pain, nausea vomiting. Patient states that she would like to have the opportunity to go to [facility] for for rehab or nursing facility for her postop rehab. Objective Data Objective Data Vital Signs: Vital Signs Temp Pulse Resp BP Pulse Ox 97.5 F L 67 18 112/41 L 92 04/05/21 02:16 04/05/21 02:16 04/05/21 02:16 04/05/21 02:16 04/05/21 02:16 Oxygen Flow Rate (L/min) 6 Oxygen Delivery Method Room Air Weight: 82.4 kg Body Mass Index (BMI) 32.1 Intake & Output: Intake and Output for Last 24 Hours 04/03/21 04/04/21 04/05/21 23:59 23:59 23:59 Intake Total 2926.17 / 3426.17 202. / 2023. Balance 2926.17 / 3426.17 / Lab / Micro Data Result Diagrams: 04/05/21 05:50 04/05/21 05:50 Labs: Laboratory Results - last 24 hr 04/04/21 08:02: POC PT 15.2 H, INR 1.3 04/04/21 08:02: POC Glucose 186 H 04/05/21 05:50: WBC 12.2 H, RBC 3.81 L, Hgb 11.6 L, Hct 36.1 L, MCV 94.8, MCH 30.4, MCHC 32.1, RDW Std Deviation 45.2 H, RDW Coeff of Shashank 13.2, Plt Count 200, MPV 9.2 04/05/21 05:50: Sodium 142, Potassium 4.3, Chloride 112 H, Carbon Dioxide 25.0, Anion Gap 5, BUN 15, Creatinine 0.59, Estim Creat Clear Calc 35.26, Est GFR (MDRD) Af Amer 126, Est GFR (MDRD) Non-Af 104, BUN/Creatinine Ratio 25.6 H, Glucose 118 H, Calcium 8.8 Micro: Microbiology 03/28/21 14:48 Swab (Method) Nasal Screen MRSA/MSSA - Final Radiography Diagnostic Testing: Radiology Impression Hip X-Ray 04/04/21 12:07 IMPRESSION: Uncomplicated right hip arthroplasty. Electronically Signed: Ernie Aguiar MD at 13:00 EDT Tel , Service support , Physical Exam Narrative Dressings clean dry intact. Negative signs and symptoms of DVT. Patient's labs reviewed vitals reviewed noted in the medical record. Patient is no respiratory distress. Patient speaking in full sentences. Const alert and oriented x3 Eyes PERRL Neuro CN's II-XII intact bilaterally Assessment & Plan Assessment/Plan (1) Status post total hip replacement, right: PLAN: 1. Continue all pain medications as prescribed 2. Continue physical therapy, weight-bear as tolerated with walker 3. Aspirin 81 mg 1 p.o. every 12 hours x30 days for postop DVT prophylaxis 4. Encourage incentive spirometry 5. Discharge to F when cleared with insurance
[2021-04-05] MEDS: oxyCODONE 5 MG Tablet 2.5 MG PO ×2 (07:51→14:14)
[2021-04-05] MEDS: Aspirin 81 MG TAB.CHEW PO (07:52)
[2021-04-05] MEDS: Senna/Docusate Sodium 1 Tablet 2 TABLET PO (07:52)
[2021-04-05 07:57] VITALS: BP 121/51; PULSE 82; RESP 18; TEMP 36.9; O2SAT 94
--- NOTE | 2021-04-05 09:40 | CASEMGMT ---
NOMI MELO Assessment: Face to Face with pt for initial transition planning/care coordination assessment. NOMI MELO introduced self and role at [facility], pt voices understanding and consents to assessment. Pt is A/O x4 and answers all questions appropriately at this time. Pt sitting up in chair in no distress. Care providers, pharmacy, and demographics verified/updated. Admitting Dx: R THR PCP:Eun Specialists:daniel Levy [facility]acy: [facility] Insurance: MCR, [employer] Prescription Benefit: yes LW/HPOA: Pt states she does have a LW/DPOA and her DPOA is her son Patrice Martines. She is aware that it is not on file at [facility] and she may have it brought in at any time to be scanned into the chart. LNOK: Patrice Martines, son; Joi Martines, dil; Rima Freeman, dtr Living Arrangements: Pt lives with son and dil in a single story house with 2 steps to enter with a rail. Pt states she was I in ADL's other than needing minimal assistance for setup and supervision for safety. Pt denies concerns at home. Transportation: Pt states she gave up driving when she turned 82 years old. Her family transports her to medical appts. DME/HHC/SNF: Pt states she has a FWW, cane, raised toilet seat, shower chair and grab bars in the bathroom. She typically uses the FWW to ambulate. Pt denies hx of [facility] and has been at [facility]. Pt states she would like to go to a SNF for recovery as she feels she will recover quicker. Pt is unsure of which facility she would like. Notified Jennifer MILES of this. Pt states no further concerns/needs. CM to follow. Advised pt to ask CM if any further question/concerns/needs arise, voices understanding. Pt Goal: SNF Plan: SNF
--- NOTE | 2021-04-05 10:50 | CASEMGMT ---
SOCIAL WORK Referral Source: RN CM Reason for Consult: New SNF Met with patient in room. Introduced role and reason for referral. Patient open to SNF. Patient was provided a list of SNF providers including quality and resource use data consistent with the patient?s preferred geographic region, medical needs, and insurance network. Patient requests referral to [facility]. Call to [facility], spoke with Laly. Per Laly, does have bed available. Referral faxed at this time. Plan: Pending acceptance at [facility] Jeffry Jeffries, SENIOR SOFTWARE MANAGER, BEEF PUSHER
--- NOTE | 2021-04-05 13:30 | CASEMGMT ---
SOCIAL WORK Received call from Laly with [facility]. Patient accepted. Physician to be updated. Plan: [facility] Jeffry Jeffries, ANALYSIS DIRECTOR, MORNING SHOW PRODUCER
[2021-04-05 14:00] VITALS: BP 105/41; PULSE 81; RESP 18; TEMP 36.8; O2SAT 96
--- NOTE | 2021-04-05 14:57 | CASEMGMT ---
SOCIAL WORK Discharge paperwork faxed to Chandra Ramsey to complete. Jeffry Jeffries, CHARGING OPERATOR, RESIDENTIAL MENTAL HEALTH WORKER
--- NOTE | 2021-04-05 16:05 | CASEMGMT ---
SOCIAL WORK PAS/RR completed. Discharge paperwork faxed to [facility]. Transport scheduled for 4:30p with [facility]. Laly with [facility] updated on time of transport. Patient and staff updated. Plan: [facility] Jeffries, ELECTRICIAN MACHINE SHOP, EQUIPMENT MECHANIC SPECIALIST
--- NOTE | 2021-04-05 16:32 | NURSING ---
nurse to room, LOG COOKER states she walked by room and pt sitting on the floor, her back against the wall by the window, pleasant and waving to staff. nurse to room, bp: 106/68, pulse 82, spo2 98% on room air. tad LE equal, no external rotation, no shortening visible, dressing unchanged. pt able to bear weight. no change in pain. pt denies hitting her head. states i was going to get my walker and just walk around. . pt assisted back to bed x2 staff, bed exit on. said nurse spoke with both Dr. Levy and Chandra Ramsey and updated on assessment findings. okay to proceed with discharge, no changes to plan of care.
--- NOTE | 2021-04-05 18:45 | NURSING ---
female phoned in states she is pt daughter Natalie, updated on discharge status and pt sitting on floor prior to discharge.
== END 2021-04-05 17:24 | disposition skilled nursing facility (03) ==
LOC: MS3 16:30
PROVIDERS: Anesthesiology; Admitting Provider Orthopaedic Surgery; PCP Family Medicine; Referring Provider Orthopaedic Surgery; Visit Provider Orthopaedic Surgery
PROC: 0SR90JZ Replacement of Right Hip Joint with Synthetic Substitute, Open Approach (ICD-10-PCS; CPT 27130; principal; 2021-04-04 09:35)
DX: M16.11 Unilateral primary osteoarthritis, right hip (principal); F41.9 Anxiety disorder, unspecified; F32.9 Major depressive disorder, single episode, unspecified; F03.90 Unspecified dementia, unspecified severity, without behavioral disturbance, psychotic disturbance, mood disturbance, and anxiety; E78.00 Pure hypercholesterolemia, unspecified; Z86.711 Personal history of pulmonary embolism; Z79.899 Other long term (current) drug therapy; Z79.52 Long term (current) use of systemic steroids; Z79.82 Long term (current) use of aspirin
CPT/HCPCS: 01214; 27130; 36415; 36416; 73502; 80048; 82962; 83036; 83735; 85027; 85610; 87081; 87426; 88307; 88311; 96361; 96365; 96366; 97110; 97162; 97166; 97530; 97535; 99218; C1776; J7120; G0378; J2405

== ENCOUNTER 2021-07-03 10:42 | Emergency (ER) | payer MEDICARE, OTHER, SELFPAY ==
[2021-07-03 10:43] VITALS: BP 125/113; PULSE 73; RESP 16; TEMP 36.6; O2SAT 95; BMI 28.3
--- NOTE | 2021-07-03 11:03 | CT_ITS ---
STUDY: CT ABDOMEN AND PELVIS WITHOUT CONTRAST REASON FOR EXAM: Female, 85 years old. Status post fall, abdominal pain, back pain, constipation, right buttock pain RADIATION DOSAGE (If Supplied By Facility): CTDIvol = ( 10.83 ) mGy, DLP = ( 654.71 ) mGycm TECHNIQUE: Transaxial images were obtained from the dome of the diaphragm to the symphysis pubis without oral contrast, and without intravenous contrast. Sagittal and coronal images were reconstructed. Individualized dose optimization techniques were used for this CT. COMPARISON: 05/20/2016. FINDINGS: Prominent markings appear to be chronic. No focal infiltrate in the lung bases The visualized portions of the heart are within normal limits. Coronary calcifications.. Normal liver. Normal gallbladder and extrahepatic biliary system. Normal spleen. Normal pancreas. Normal bilateral adrenal glands. Normal right kidney. Normal left kidney. There is a small hiatal hernia. Normal small intestine. Diverticulosis of the sigmoid and descending colon. No evidence of acute diverticulitis. Fecal retention. The appendix is visualized and appears normal. There is diffuse atherosclerotic calcification of the abdominal aorta, without a demonstrated aneurysm. Normal inferior vena cava. Normal retroperitoneum. Normal urinary bladder. There is absence of the uterus consistent with a prior hysterectomy. Very small umbilical hernia containing fat. There are diffuse degenerative changes of the visualized lumbar spine. Right hip arthroplasty. CT/Abdomen/Pelvis without Cont IMPRESSION: 1. Diverticulosis without evidence of acute diverticulitis. 2. Focal acute inflammatory process. Electronically Signed: Deo Levy MD at 11:44 EST Tel , Service support ,
--- NOTE | 2021-07-03 11:04 | EDS_ITS ---
HPI History of Present Illness Chief Complaint: Other, Pain/Inj Informant: patient and family Onset/Context/Timing Onset: Days Context: Gradual Onset Timing: Waxes and wanes Current Severity: Moderate Maximum Severity: Moderate Narrative Narrative: Patient reports presents complaining of pain across her buttocks. Pain started approximately week ago when she fell. Family states that area was tender to the touch but was not bruised. She has been complaining of increased pain across her buttocks mostly on the left. She denies problems with urination. She tells me she has not had a bowel movement since this occurred. She denies pain radiating down her legs. [facility] Medical History Anxiety Arthritis Cancer Chronic cough Dementia Depression Excessive bleeding Fall High cholesterol History of echocardiogram History of edema History of IBS History of pain when walking History of poliomyelitis History of steroid therapy Non-smoker Post-menopausal Pulmonary embolism Shortness of breath on exertion Temporal arteritis Walker as ambulation aid Wears glasses Home Medications calcium carbonate-vitamin D3 [Oyster Shell Calcium-Vit D3] 1 ea PO BID 02/09/16 [History Last Taken Unknown] rivastigmine tartrate [Exelon] 3 mg PO BID 05/20/16 [History Last Taken Unknown] warfarin [Jantoven] 2 mg PO SUMOWEFRSA 04/24/17 [History Last Taken 03/26/21] aspirin 81 mg PO DAILY@0800 08/10/18 [History Last Taken Unknown] atorvastatin 20 mg PO QHS 08/10/18 [History Last Taken Unknown] carvedilol 3.125 mg PO BID 08/10/18 [History Last Taken 04/04/21 06:45] mirtazapine 15 mg PO QHS 08/10/18 [History Last Taken Unknown] war[facility] [[facility] 08/10/18 [History Last Taken 03/26/21] prednisone 2.5 mg PO DAILY 12/23/18 [History Last Taken 04/04/21 06:45] oxybutynin chloride 5 mg PO DAILY 03/08/21 [History Last Taken Unknown] sertraline 100 mg PO DAILY 03/08/21 [History Last Taken Unknown] cephalexin 500 mg PO Q6 #40 cap 07/03/21 [Rx Last Taken Unknown] lidocaine [Lidoderm] 1 patch TOPICAL DAILY #6 ea 07/03/21 [Rx Last Taken Unknown] Allergy/AdvReac Type Severity Reaction Status Date / Time No Known Allergies Allergy Verified 07/03/21 10:46 Surgical History H/O cataract extraction H/O mastectomy History of hysterectomy History of knee replacement Social History Smoking Status: Never smoker ROS ROS ED Constitutional Constitutional ED: Denies chills or fever(s) Eyes Eyes: Denies change in vision ENT ENT ED: Denies sore throat Cardiovascular Cardiovascular: Denies chest pain Respiratory/Chest Respiratory/Chest: Denies cough or dyspnea Gastrointestinal Gastrointestinal: Reports abdominal pain and constipation; Denies diarrhea, nausea or vomiting Genitourinary Genitourinary ED: Denies dysuria Musculoskeletal Musculoskeletal: Reports back pain Integumentary Denies rash Neurologic Neurologic: Denies headache(s), paresthesias or weakness Allergic/Immunologic Allergic/Immunologic ED: Denies urticaria EXAM Physical Exam Const Vital Signs: 07/03/21 10:43 07/03/21 11:13 Temperature 98 F Temperature Source Temporal Pulse Rate 73 Respiratory Rate 16 Respiratory Effort Normal Non-Labored Blood Pressure 125/113 H Blood Pressure Mean 117 Pulse Ox 95 Oxygen Delivery Method Room Air Positive well nourished and well developed General Appearance ED: well developed HEENT Reports moist mucous membranes Eyes PERRL and EOMs intact bilaterally Neck supple Chest Wall inspection of chest normal and palpation of chest normal Resp normal respiratory effort and clear to auscultation bilaterally Cardio regular rate and regular rhythm GI Palpation: soft and tender other (Lower abdominal tenderness to palpation); Negative for guarding or rebound tenderness present Back/Spine no CVA tenderness Back/Spine Narrative: Tenderness in the low lumbar spine midline and paraspinal region. Extremity normal to inspection Neuro oriented x3 Neuro Narrative: No focal neurologic deficits. Sensorium / Orientation: alert Skin no rashes or lesions noted MDM MDM MDM Narrative Medical decision making narrative: With patient having abdominal pain on exam and reported no bowel movement for a week further work-up was initiated. Lab work, CT flank, urinalysis ordered. Lab Data Attestation: I reviewed the patient's lab results. Labs: Laboratory Results - last 24 hr 07/03/21 07/03/21 07/03/21 11:11 11:11 11:11 WBC 6.4 RBC 4.58 Hgb 13.5 Hct 42.0 MCV 91.7 MCH 29.5 MCHC 32.1 RDW Std Deviation 46.6 H RDW Coeff of Shashank 13.8 Plt Count 227 MPV 9.2 Immature Gran % (Auto) 0.500 Neut % (Auto) 71.8 H Lymph % (Auto) 15.7 L [place] % (Auto) 9.5 Eos % (Auto) 2.2 Baso % (Auto) 0.3 Absolute Neuts (auto) 4.6 Absolute Lymphs (auto) 1.01 Nucleated RBC % 0 PT 30.0 H INR 3.0 Sodium 142 Potassium 4.6 Chloride 111 H Carbon Dioxide 29.0 Anion Gap 2 L BUN 21 H Creatinine 0.77 Estim Creat Clear Calc 38.36 Est GFR (MDRD) Af Amer 92 Est GFR (MDRD) Non-Af 76 BUN/Creatinine Ratio 27.3 H Glucose 102 Calcium 9.2 Urine Color Urine Clarity Urine pH Ur Specific [place] Urine Protein Urine Glucose (UA) Urine Ketones Urine Occult Blood Urine Nitrite Urine Bilirubin Urine Urobilinogen Ur Leukocyte Esterase Urine RBC Urine WBC Ur Squamous Epith Cells Urine Bacteria Urine Mucus 07/03/21 11:54 WBC RBC Hgb Hct MCV MCH MCHC RDW Std Deviation RDW Coeff of Shashank Plt Count MPV Immature Gran % (Auto) Neut % (Auto) Lymph % (Auto) [place] % (Auto) Eos % (Auto) Baso % (Auto) Absolute Neuts (auto) Absolute Lymphs (auto) Nucleated RBC % PT INR Sodium Potassium Chloride Carbon Dioxide Anion Gap BUN Creatinine Estim Creat Clear Calc Est GFR (MDRD) Af Amer Est GFR (MDRD) Non-Af BUN/Creatinine Ratio Glucose Calcium Urine Color Yellow Urine Clarity Sl. Cloudy Urine pH 5.0 Ur Specific [place] 1.025 Urine Protein Negative Urine Glucose (UA) Normal Urine Ketones Negative Urine Occult Blood 25 H Urine Nitrite Positive H Urine Bilirubin Negative Urine Urobilinogen Normal Ur Leukocyte Esterase 500 H Urine RBC 0-5 SEEN Urine WBC 5-10 SEEN Ur Squamous Epith Cells 0 SEEN Urine Bacteria 2+ Urine Mucus 0 SEEN Radiography Diagnostic Testing: Clinical Impression(s) from Imaging Studies Abdomen/Pelvis CT 11/07/21 11:03 IMPRESSION: 1. Diverticulosis without evidence of acute diverticulitis. 2. Focal acute inflammatory process. Electronically Signed: Deo Levy MD at 11:44 EST Tel , Service support , Treatment and Re-Evaluation Comments:: Urinalysis does reveal sign of infection with 2+ bacteria and 5-10 whites. Nitrites are positive. CT scan reveals no acute inflammatory process. Blood work otherwise unremarkable. I did discuss test results with son outside the room. I believe patient likely had contusion especially with her being on Coumadin from her recent fall. This is likely putting pressure on the sciatic nerves. With patient on blood thinner and having some problems with constipation in the past I am reluctant to start her on strong pain medicine or even steroid is that raises complication risk. We will treat her with Tylenol and Lidoderm patches. We will treat her with Keflex for her urinary tract infection to try to limit any alteration in her INR. Discharge Plan Triage Chief Complaint: Other, Pain/Inj ED Provider: Ninoska Carter Dx/Rx/DC Orders Clinical Impression: UTI (urinary tract infection), Contusion of buttock Instructions: ED Back Contusion, ED CYSTITIS Female Adult Prescriptions: New cephalexin 500 mg capsule 500 mg PO Q6 Qty: 40 RF: 0 lidocaine [Lidoderm] 5 % adhesive patch,medicated 1 patch topical DAILY Qty: 6 RF: 0 No Action calcium carbonate-vitamin D3 [Oyster Shell Calcium-Vit D3] 1 EACH tablet 1 ea PO BID RF: 0 rivastigmine tartrate [Exelon] 3 MG capsule 3 mg PO BID RF: 0 warfarin [Jantoven] 2 MG tablet 2 mg PO SUMOWEFRSA RF: 0 prednisone 1 MG tablet 2.5 mg PO DAILY RF: 0 warfarin [Jantoven] 4 MG tablet 4 mg PO TUTH RF: 0 mirtazapine 15 MG tablet 15 mg PO QHS RF: 0 atorvastatin 20 MG tablet 20 mg PO QHS RF: 0 carvedilol 3.125 MG tablet 3.125 mg PO BID RF: 0 aspirin 81 MG tablet,chewable 81 mg PO DAILY@0800 RF: 0 sertraline 100 mg Tablet 100 mg PO DAILY RF: 0 oxybutynin chloride 5 mg Tablet 5 mg PO DAILY RF: 0 Primary Care Provider: Mayank Haq Referrals: Mayank Haq DO [Primary Care Provider] - 1 Week Disposition Disposition: Home, Self Care
[2021-07-03 11:16] LABS: Absolute Lymphocyte Count 1.01 X10^3/uL (0.83-4.51); Absolute Neutrophil Count 4.6 X10^3/uL (2.0-7.7); Basophil# 0.02 X10^3/uL; Basophil% 0.3 % (0-1); Eosinophil# 0.14 X10^3/uL; Eosinophils% 2.2 % (0-5); Hemoglobin 13.5 g/dL (12.0-15.0); Lymphocyte # 1.01 X10^3/ul (0.83-4.51); Lymphocyte % 15.7 % (19-41); Mean Corp Hgb Conc 32.1 g/dL (32-36); Mean Corpuscular Hgb 29.5 pg (27.0-32.0); Mean Corpuscular Volume 91.7 fL (81-99); Mean Platelet Vol. 9.2 fl (6.2-12.0); Monocyte# 0.61 X10^3/uL; Monocyte% 9.5 % (0-10); NRBC Flagged by Analyzer 0 % (0-5); Neutrophil # 4.63 X10^3/uL (2.7-7.7); Neutrophil % 71.8 % (47-70); Platelet Count 227 K/mm3 (150-450); RBC Distribution Width CV 13.8 % (11.6-14.6); RBC Distribution Width SD 46.6 fl (35.1-43.9); Red Blood Count 4.58 M/mm3 (4.2-5.4); White Blood Count 6.4 K/mm3 (4.4-11.0)
[2021-07-03 11:34] LABS: Anion Gap 2 (5-15); BUN 21 mg/dL (7-18); BUN/Creat Ratio 27.3 RATIO (10-20); Calcium,Total 9.2 mg/dL (8.5-10.1); Chloride 111 mmol/L (98-107); Creatinine, Serum 0.77 mg/dL (0.55-1.02); EST Glomerular Filtration Rate 76 mL/min (>60); Est Glom Filt Rate - Afr Amer 92 mL/min (>60); Estimated Creatinine Clearance 38.36 ml/min; Glucose 102 mg/dL (74-106); Potassium 4.6 mmol/L (3.5-5.1); Sodium Level 142 mmol/L (136-145)
[2021-07-03 11:58] LABS: Mucous, Urine 0 SEEN /hpf (<or=2+); Squamous Epithelial Cells - UA 0 SEEN /hpf (5-10)
[2021-07-03 12:00] LABS: Color, Urine Yellow (Yellow); Glucose, Dipstick Normal (Normal); Ketone-Dipstick Negative (Negative); Leukocyte Esterase-Dipstick 500 /ul (Negative); Nitrite-Dipstick Positive (Negative); Occult Blood-Urine 25 /ul (Negative); Protein-Dipstick Negative (Negative); Specific Gravity, Urine 1.025 (1.002-1.030); Urine Bilirubin Dipstick Negative (Negative); Urine Clarity Sl. Cloudy (Clear); Urine Urobilinogen Normal (Normal)
[2021-07-03 12:06] LABS: Bacteria 2+ /hpf (None Seen); Red Blood Cells-Urine 0-5 SEEN /hpf (0-5); White Blood Cells 5-10 SEEN /hpf (0-5)
[2021-07-03] MEDS: Lidocaine 5% Patch 1 PATCH TOPICAL (13:11)
[2021-07-03] MEDS: Cephalexin 250 MG Capsule 500 MG PO (13:11)
[2021-07-03] MEDS: Acetaminophen 325 MG Tablet 650 MG PO (13:11)
== END 2021-07-03 13:26 | disposition home or self-care (01) ==
PROVIDERS: Emergency Provider Emergency Medicine; PCP Family Medicine
DX: S30.0XXA Contusion of lower back and pelvis, initial encounter (principal); W19.XXXA Unspecified fall, initial encounter; Y93.9 Activity, unspecified; Y92.9 Unspecified place or not applicable; Y99.9 Unspecified external cause status; N39.0 Urinary tract infection, site not specified; E78.00 Pure hypercholesterolemia, unspecified; M19.90 Unspecified osteoarthritis, unspecified site; F03.90 Unspecified dementia, unspecified severity, without behavioral disturbance, psychotic disturbance, mood disturbance, and anxiety; F32.A Depression, unspecified; Z79.01 Long term (current) use of anticoagulants; Z79.82 Long term (current) use of aspirin; Z79.899 Other long term (current) drug therapy
CPT/HCPCS: 74176; 80048; 81001; 85025; 85610; 99284; A4216

== ENCOUNTER 2021-10-26 17:57 | Outpatient (CLI) | payer MEDICARE, OTHER, SELFPAY | END 2021-10-26 23:59 | disposition home or self-care (01) | PROVIDERS: PCP Family Medicine; Visit Provider Family Medicine | DX: N39.0 Urinary tract infection, site not specified (principal) | CPT/HCPCS: 87086; 87088; 87186 ==

== ENCOUNTER 2025-05-12 18:14 | Emergency (ER) | payer MEDICARE, OTHER, SELFPAY ==
--- NOTE | 2025-05-12 17:50 | RAD_ITS ---
PROCEDURE: HIP, UNI W/ PELVIS 2-3 VIEWS 05/12/2025 REASON FOR EXAM: INJURY/PAIN TECHNIQUE: Procedure Code: RAD Modality: DX Procedure: HIP, UNI W/ PELVIS 2-3 VIEWS Laterality: COMPARISON: 04/04/2021. FINDINGS: Status post right hip arthroplasty. No evidence of acute complication. Severe degenerative changes of the left hip. Degenerative changes of the partially visualized spine. Surgical clips overlie the pelvis. RAD/HIP, UNI W/ Pelvis 2-3 Views IMPRESSION: Osseous findings as above. Reading Location: [id number]
[2025-05-12 18:17] VITALS: BP 127/54; PULSE 71; RESP 16; TEMP 36.6; O2SAT 95; BMI 28.3
--- NOTE | 2025-05-12 19:55 | EDS_ITS ---
HPI History of Present Illness Chief Complaint: Fall Detail of Chief Complaint: Patient has problems with communication and is at nursing facility. Informant: EMS and SNF Onset/Context/Timing Onset: - (X-ray interpreted by radiologist suspected femoral neck fracture) Mechanism/Context: other (Patient does not recall falling. She had an unwitnessed fall according to SNF) Location of pain/injuries: - (Patient is not complaining of any pain in her shoulders, elbows, wrists, hip or knee.) Quality of Pain: - (None per patient) Current Severity: Gone Maximum Severity: Unable to determine since she has dementia Worsened by: Unknown Relieved by: Not applicable Associated Symptoms Associated Symptoms: Positive for - (Unknown) Length of loss of consciousness: Unknown Narrative Narrative: Patient is an 89-year-old woman. She presents from nursing facility by ambulance because of suspected femoral neck fracture. Report was sent. Images were not. Patient presently complains of no head pain, chest pain, abdominal pain, low back pain or upper or lower extremity pain. She states she feels fine. Prior similar symptoms: No Recent Illness/Hospitalization: No PFSH [facility] Medical History Wears glasses Post-menopausal Cancer Depression Anxiety Dementia History of steroid therapy Walker as ambulation aid Arthritis High cholesterol Excessive bleeding History of IBS Non-smoker Shortness of breath on exertion Chronic cough History of pain when walking History of edema History of echocardiogram History of poliomyelitis Fall Temporal arteritis Pulmonary embolism Home Medications ?Medication ?Instructions ?Recorded ?Last Taken ?Type rivastigmine tartrate 3 mg capsule 3 mg PO BID dementi a 05/20/16 05/12/25 Histor y (Exelon) atorvastatin 20 mg tablet 20 mg PO QHS cholesterol pil l 08/10/18 05/11/25 History carvedilol 3.125 mg tablet 3.125 mg PO BID heart med 1 10/11/17 05/12/25 History prednisone 1 mg tablet 2.5 mg PO DAILY TEMPERAL ART ERITIS 12/23/18 05/12/25 History bisacodyl 10 mg rectal suppository 10 mg ME DAILY PRN constipation 09/07/22 Unknown History acetaminophen 500 mg tablet 1,000 mg PO TID PRN pain 0 09/10/23 Unknown History pantoprazole 40 mg tablet,delayed 40 mg PO DAILY 09/1005/12/25 History release sertraline 25 mg tablet 12.5 mg PO Q2D 05/12/25 Unkn own History vibegron 75 mg tablet (Gemtesa) 75 mg PO DAILY 5 05/12/25 History Allergy/AdvReac Type Severity Reaction Status Date / Time No Known Allergies Allergy Verified 05/12/25 18:17 Family History no significant family his Surgical History H/O mastectomy History of knee replacement History of hysterectomy H/O cataract extraction Social History Smoking Status: Never smoker ROS ROS ED Review of Systems ROS Unobtainable: other Details: Patient has mild dementia. She is not a good informant. History is limited. As stated in the HPI narrative she denies everything EXAM Physical Exam Const Vital Signs: 05/12/25 18:17 05/12/25 18:25 Temperature 98 F Temperature Source Oral Pulse Rate 71 Respiratory Rate 16 Respiratory Effort Normal Non-Labored Blood Pressure 127/54 H Blood Pressure Mean 78 Pulse Ox 95 Oxygen Delivery Method Room Air Positive well nourished and well developed General Appearance ED: well developed and NAD HEENT Reports TM's clear atraumatic; Negative for tenderness Nose: Negative for septum abnormal Tympanic Membrane ED: Yes TM's clear Eyes PERRL Resp normal respiratory effort and clear to auscultation bilaterally Cardio regular rhythm, S1 normal heart sound, S2 normal heart sound and no murmurs Rate: regular rate GI normal to inspection, nondistended, normoactive bowel sounds, non-tender, non- distended and no masses Back/Spine normal to inspection and no thoracic nor lumbar tenderness Extremity normal to inspection and full ROM Extremity Narrative: Antony Jamarcus 4 test does not cause any discomfort. She has no pain palpation in the left inguinal area or over the left greater trochanteric region. Furthermore she has no pain ovation over the pubic symphysis, ilium or ischial tuberosity on the left. General Extremety ED: Negative for deformity or tenderness General Extremity: Negative for deformity Neuro No oriented x3, CN's II-XII intact bilaterally and moves all extremities Neuro Narrative: Gait is unsteady. She is able to bear weight after x-ray was reviewed interpreted by me. Psych mental status grossly normal Skin no rashes or lesions noted, no wounds, skin turgor normal and no jaundice MDM MDM MDM Narrative Medical decision making narrative: Clinically patient does not have a left hip fracture. Will obtain x-ray to determine if there is any evidence of fracture. If none is noted will have nurse ambulate her. As previously documented she is able to bear weight with no evidence of discomfort. In my opinion the x-ray reveals degenerative changes only. Therefore we will send back to nursing facility. Radiography Chest X-Ray - ED: Read by ED Physician (Three-view x-ray of the left hip was independent reviewed interpreted by me at 1847. There is evidence of arthritic changes of the acetabulum. There is no evidence of a femoral neck fracture.) Treatment and Re-Evaluation Narrative: Patient walked with assistance. She is able to bear weight without pain or grimacing. Discharge Plan Triage Chief Complaint: Fall ED Provider: Jaret Hernandez Dx/Rx/DC Orders Clinical Impression: Fall, Osteopenia, History of right breast cancer, Ovarian ca, GERD (gastroesophageal reflux disease), NSTEMI (non-ST elevated myocardial infarction), Dementia Instructions: ED Fall Prevention Prescriptions: No Action bisacodyl 10 mg suppository 10 mg ME DAILY PRN (Reason: constipation) acetaminophen 500 mg tablet 1,000 mg PO TID PRN (Reason: pain) pantoprazole 40 mg tablet,delayed release (DR/EC) 40 mg PO DAILY rivastigmine tartrate [Exelon] 3 MG capsule 3 mg PO BID prednisone 1 MG tablet 2.5 mg PO DAILY atorvastatin 20 MG tablet 20 mg PO QHS carvedilol 3.125 MG tablet 3.125 mg PO BID sertraline 25 mg tablet 12.5 mg PO Q2D Patient Comments: GIVE EVERY OTHER DAY Gemtesa 75 mg tablet 75 mg PO DAILY Primary Care Provider: Alec Crews Referrals: Alec Crews MD [Primary Care Provider] - As Needed Print Language: Georgian Disposition Disposition: Home, Self Care
[2025-05-12 20:14] VITALS: BP 104/90; PULSE 91; RESP 18; O2SAT 98
--- NOTE | 2025-05-12 21:17 | ED.RN ---
pt wheeling herself in [place]. confused. thinks she drove self to ED. exceptional student education aide taking patient in wheelchair for ride. awaiting transport. denied drink or snacks.
--- NOTE | 2025-05-12 21:19 | ED.RN ---
* offered snacks and refused.
[2025-05-12 21:42] VITALS: BP 129/68; PULSE 86; RESP 18; TEMP 36.6; O2SAT 98
--- NOTE | 2025-05-12 22:23 | ED.RN ---
Report called to [facility]
== END 2025-05-12 23:00 | disposition home or self-care (01) ==
PROVIDERS: Emergency Provider Emergency Medicine; PCP Family Medicine; Visit Provider Emergency Medicine
DX: R26.81 Unsteadiness on feet (principal); F03.94 Unspecified dementia, unspecified severity, with anxiety; F03.93 Unspecified dementia, unspecified severity, with mood disturbance; W19.XXXA Unspecified fall, initial encounter; M16.12 Unilateral primary osteoarthritis, left hip; I25.2 Old myocardial infarction; K21.9 Gastro-esophageal reflux disease without esophagitis; M85.80 Other specified disorders of bone density and structure, unspecified site; E78.00 Pure hypercholesterolemia, unspecified; Z85.3 Personal history of malignant neoplasm of breast; Z85.43 Personal history of malignant neoplasm of ovary; Z86.711 Personal history of pulmonary embolism; Z79.899 Other long term (current) drug therapy
CPT/HCPCS: 73502; 99284